=== PATIENT | male | born 1950 | race Caucasian/White ===

== ENCOUNTER 2017-12-04 08:39 | Inpatient (IN) ==
[2017-12-04] MEDS ORDERED: Heparin 10,000 UNITS/10 ML Vial (for IV use) IV.PUSH STA (08:49)
[2017-12-04] MEDS ORDERED: Nitroglycerin Drip Premix 50 MG/250 ML BOTTLE IV.CONT PRN (08:51)
[2017-12-04] MEDS ORDERED: Morphine Inj 4 MG/ML Vial IV.PUSH SCH (09:00)
--- NOTE | 2017-12-04 09:14 | ED ---
HPI General Chief Complaint: Chest Pain Stated Complaint: Chest Pain Time Seen by Provider: 12/04/17 08:45 Source: patient and EMS Mode of arrival: EMS Limitations: no limitations History of Present Illness MD complaint: chest pain Complete Quality Measures for STEMI Alert Patients STEMI Alert: No Onset (ago): minute(s) (30) Time: 08:10 Duration: constant Onset: during rest Pain location: substernal Severity scale (1-10): 8 Quality: tightness and similar to prior ID Pain radiation: none Relieving factors: nothing Exacerbating factors: nothing Associated symptoms: dyspnea Treatments prior to arrival chest pain: aspirin, nitroglycerin, oxygen and other (morphine>>low BP) Related Data Home Medications Medication Instructions Recorded Confirmed amlodipine [Norvasc] 10 mg PO DAILY 12/04/17 12/04/17 aspirin 81 mg PO QPM 12/04/17 12/04/17 atorvastatin [Lipitor] 40 mg PO HS 12/04/17 12/04/17 carvedilol [Coreg] 3.125 mg PO BID 12/04/17 12/04/17 chlordiazepoxide HCl 5 mg PO DAILY 12/04/17 12/04/17 cholecalciferol (vitamin D3) 2,000 unit PO DAILY 12/04/17 12/04/17 [Vitamin D3] citalopram [Celexa] 40 mg PO DAILY 12/04/17 12/04/17 clopidogrel [Plavix] 75 mg PO DAILY 12/04/17 12/04/17 coQ10 (ubiquinol) 200 mg PO DAILY 12/04/17 12/04/17 ergocalciferol (vitamin D2) 50,000 unit PO QWEEK 12/04/17 12/04/17 [Vitamin D2] fentanyl 1 patch TRANSDERMAL Q72H 12/04/17 12/04/17 finasteride 5 mg PO HS 12/04/17 12/04/17 furosemide [Lasix] 40 mg PO DAILY 12/04/17 12/04/17 gabapentin 300 mg PO Q8HR 12/04/17 12/04/17 hydrocodone-acetaminophen [Parksley] 1 tab PO Q4-6H PRN 12/04/17 12/04/17 insulin glargine [Lantus U-100 100 unit SUB-Q QPM 12/04/17 12/04/17 Insulin] insulin lispro [Humalog U-100 5 - 10 units SUB-Q UD 12/04/17 12/04/17 Insulin] ipratropium-albuterol 3 ml INHALATION Q6-8H PRN 12/04/17 12/04/17 loratadine [Claritin] 10 mg PO DAILY 12/04/17 12/04/17 metformin [Glucophage] 1,000 mg PO BID 12/04/17 12/04/17 methocarbamol [Robaxin] 500 mg PO Q8HR 12/04/17 12/04/17 [id number]-LS-lycopen-lutein 1 tab PO DAILY 12/04/17 12/04/17 [Centrum Silver] pramipexole 0.75 mg PO HS 12/04/17 12/04/17 sacubitril-valsartan [Entresto] 1 tab PO BID 12/04/17 12/04/17 spironolactone [Aldactone] 25 mg PO DAILY 12/04/17 12/04/17 tamsulosin 0.4 mg PO HS 12/04/17 12/04/17 tiotropium bromide [Spiriva with 1 cap INHALATION DAILY 12/04/17 12/04/17 HandiHaler] vancomycin in 0.9 % sodium chl 10 mg/kg IV Q6H 12/04/17 12/04/17 Allergies Allergy/AdvReac Type Severity Reaction Status Date / Time Penicillins Allergy Unknown childhood Verified 10/28/17 07:45 reaction Review of Systems Except as stated in HPI: all other systems reviewed are negative [facility] Medical History Medical History Cellulitis of right lower extremity (Acute) Ischemic cardiomyopathy (Acute) Tibial plateau fracture, right (Acute) COPD (chronic obstructive pulmonary disease) (Acute) Diabetes (Acute) Hyperlipidemia associated with type 2 diabetes mellitus (Acute) Hypertension (Acute) Myocardial infarction (Acute) Tibial plateau fracture (Acute) Social History Social History Second Hand Smoke Exposure: Yes Smoking Status: Current every day smoker Tobacco Type: Cigars How Often Do You Have a Drink Containing Alcohol: 2 to 4 times a month Recent Travel in [facility] [[email or web address]] within the Last 8 Weeks: No Recent Out of Country Travel within the Last 8 Weeks: No Immunization History Tetanus Immunization: Unsure Exam Const General: cooperative and healthy appearing [facility] Head: normal to inspection, normocephalic and atraumatic Eyes General: appearance normal, both eyes and all related structures Conjunctivae: conjunctivae normal Sclera: sclerae normal EOM: EOM intact bilaterally Neck Neck: normal visual inspection and full ROM Chest Chest: normal inspection of the chest Resp Effort & Inspection: normal respiratory effort and able to speak in complete sentences Auscultation: clear to auscultation bilaterally Cardio Rate: regular rate Rhythm: regular rhythm Heart Sounds: S1 normal and S2 normal Skin General: turgor normal and erythema (mild erythema RLE) Neuro General: alert, awake, oriented x3, moves all extremities and CN's II-XI intact bilaterally Extrem General: normal to inspection and edema (RLE) Psych Appearance: grossly normal Mental Status: mental status grossly normal Speech and Movement: speech and movement normal Mood: congruent mood Affect: normal affect Attitude: cooperative Thought Process: normal Thought Content: normal Judgment: judgment good Course Reevaluation(s) Reevaluation #1: Patient states that his chest pain is getting worse rather than better. CTA for PE has been ordered. Time: 09:35 Consultations Consultation #1: Dr. Cruz recommended routine TWX OPERATOR work up. She is sending records from his latest cath and echo. Time: 09:40 Initial Documented Vital Signs Temperature 97.8 F 12/04/17 08:47 Pulse Rate 65 12/04/17 08:47 Respiratory Rate 17 12/04/17 08:47 Blood Pressure 110/72 12/04/17 08:47 Pulse Oximetry 100 12/04/17 08:47 Last Documented Vital Signs Temperature 97.8 F 12/04/17 08:47 Pulse Rate 67 12/04/17 10:46 Respiratory Rate 17 12/04/17 10:46 Blood Pressure 105/52 L 12/04/17 10:46 Pulse Oximetry 100 12/04/17 10:46 Critical Care Time Critical Care Time: Yes Total Critical Care Time: 45 Attestation: Time to perform other separately billable procedures was not included in the critical care time. My time did not include minutes spent treating any other patients simultaneously or on activities that did not directly contribute to the patient's treatment. The services I provided to this patient were to treat and/or prevent clinically significant deterioration due to chest pain, rule out ID, rule out PE I provided critical care services requiring my management, as noted below: Chart data review, documentation time, medication orders and management, vital sign assessments/reviewing monitor data, ordering and reviewing lab tests, ordering and interpreting/reviewing x-rays and diagnostic studies, care of the patient and discussion of the patient with the admitting physicians Medical Decision Making MDM Narrative Medical decision making narrative: Patient presented to us by [facility] as a possible STEMI. He had the onset of chest pain 30 minutes prior to presentation. 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 He describes it as a squeezing sensation which is associated with short he was treated by [facility] with aspirin, 1 sublingual nitroglycerin, 2 mg of morphine and oxygen. This provided no relief of his chest pain. The morphine did drop his blood pressure. On arrival to the department. An IV was placed. He was placed on the monitor. EKG was obtained. Labs were obtained and sent. He has been started on a nitroglycerin drip as well as a heparin drip. Initial chest pain evaluation is negative including CT for PE. The patient will be admitted to the chest pain center for further evaluation. Differential Diagnosis Differential Diagnosis: Differential diagnosis of chest pain includes but is not limited to musculoskeletal pain, pulmonary embolism, acute coronary syndrome , pneumonia, pleurisy Lab Data Lab results reviewed: Yes I reviewed the patient's lab results. Lab results narrative: Troponin is less than 0.02. Result diagrams: 12/04/17 08:55 12/04/17 08:55 Lab Results 12/04/17 12/04/17 12/04/17 Range/Units 08:55 08:55 08:55 WBC 8.3 (4.0-11.0) th/mm3 RBC 4.48 L (4.50-5.90) mil/mm3 Hgb 10.7 L (13.0-17.0) gm/dL Hct 33.3 L (39.0-51.0) % MCV 74.4 L (80.0-100.0) fL MCH 24.0 L (27.0-34.0) pg MCHC 32.3 (32.0-36.0) % RDW 17.5 H (11.6-17.2) % Plt Count 287 (150-450) th/mm3 MPV 8.4 (7.0-11.0) fL Neut % (Auto) 65.6 (16.0-70.0) % Lymph % (Auto) 18.2 (9.0-44.0) % [place] % (Auto) 6.6 (0.0-8.0) % Eos % (Auto) 8.3 H (0.0-4.0) % Baso % (Auto) 1.3 (0.0-2.0) % Neut # (Auto) 5.4 (1.8-7.7) th/mm3 Lymph # (Auto) 1.5 (1.0-4.8) th/mm3 [place] # (Auto) 0.5 (0.0-0.9) th/mm3 Eos # (Auto) 0.7 H (0.0-0.4) th/mm3 Baso # (Auto) 0.1 (0.0-0.2) th/mm3 WBC Differential . Differential Comment Auto diff final PT 9.9 (9.8-11.6) sec INR 1.0 Ratio APTT 25.4 (24.3-30.1) sec Sodium 140 (136-145) meq/L Potassium 3.6 (3.5-5.1) meq/L Chloride 108 H (98-107) meq/L Carbon Dioxide 22.5 (21.0-32.0) meq/L Anion Gap 10 (5-15) meq/L BUN 8 (7-18) mg/dL Creatinine 0.95 (0.60-1.30) mg/dL Estimated GFR 79 L (>89) mL/min Random Glucose 126 H (74-106) mg/dL Calcium 8.5 (8.5-10.1) mg/dL Troponin I Less than 0.02 L (0.02-0.05) ng/mL Imaging Data Radiologist's impression: Chest X-Ray 12/04/17 08:46 CONCLUSION: Chest CTA 12/04/17 09:45 CONCLUSION: ECG Data EKG Prior to Arrival: Yes Attestation: I personally reviewed and interpreted this ECG as follows: (EKG shows a rate of 69. Rhythm is irregular. There is an intraventricular conduction delay. I do not see any obvious ST segment changes. EKG does not appear to be different from previous.) Discharge Plan Discharge Disposition Patient Disposition: 30 Still Patient Discharge Details Diagnosis: Chest pain Physicians Team ED Provider: Gloria Lang Primary Care Provider: Primary Care Dorothy Ye Rxs /Orders / Referrals /Forms Prescriptions: No Action spironolactone [Aldactone] 25 mg Tablet 25 mg PO DAILY RF: 0 carvedilol [Coreg] 3.125 mg Tablet 3.125 mg PO BID RF: 0 furosemide [Lasix] 40 mg Tablet 40 mg PO DAILY RF: 0 atorvastatin [Lipitor] 40 mg Tablet 40 mg PO HS RF: 0 methocarbamol [Robaxin] 500 mg Tablet 500 mg PO Q8HR RF: 0 ipratropium-albuterol 0.5 mg-3 mg(2.5 mg base)/3 mL Solution For Nebulization 3 ml INHALATION Q6-8H PRN (Reason: Shortness Of Breath) RF: 0 insulin glargine [Lantus U-100 Insulin] 100 unit/mL Solution 100 unit SUB-Q QPM RF: 0 citalopram [Celexa] 40 mg Tablet 40 mg PO DAILY RF: 0 clopidogrel [Plavix] 75 mg Tablet 75 mg PO DAILY RF: 0 hydrocodone-acetaminophen [Parksley] 10-325 mg Tablet 1 tab PO Q4-6H PRN (Reason: Pain) RF: 0 aspirin 81 mg Tablet,Delayed Release (Dr/Ec) 81 mg PO QPM RF: 0 chlordiazepoxide HCl 5 mg Capsule 5 mg PO DAILY RF: 0 tamsulosin 0.4 mg Capsule,Extended Release 24hr 0.4 mg PO HS RF: 0 amlodipine [Norvasc] 10 mg Tablet 10 mg PO DAILY RF: 0 metformin [Glucophage] 1,000 mg Tablet 1,000 mg PO BID RF: 0 gabapentin 300 mg Capsule 300 mg PO Q8HR RF: 0 ergocalciferol (vitamin D2) [Vitamin D2] 50,000 unit Capsule 50,000 unit PO QWEEK RF: 0 insulin lispro [Humalog U-100 Insulin] 100 unit/mL Solution 5 - 10 units SUB-Q UD RF: 0 fentanyl 25 mcg/hr Patch 72 Hour 1 patch TRANSDERMAL Q72H RF: 0 finasteride 5 mg Tablet 5 mg PO HS RF: 0 loratadine [Claritin] 10 mg Tablet 10 mg PO DAILY RF: 0 tiotropium bromide [Spiriva with HandiHaler] 18 mcg Capsule, W/Inhalation Device 1 cap INHALATION DAILY RF: 0 [id number]-avy-UN-lycopen-lutein [Centrum Silver] 0.4-300-250 mg-mcg-mcg Tablet 1 tab PO DAILY RF: 0 pramipexole 0.75 mg Tablet 0.75 mg PO HS RF: 0 cholecalciferol (vitamin D3) [Vitamin D3] 2,000 unit Capsule 2,000 unit PO DAILY RF: 0 coQ10 (ubiquinol) 200 mg Capsule 200 mg PO DAILY RF: 0 sacubitril-valsartan [Entresto] 49-51 mg Tablet 1 tab PO BID RF: 0 vancomycin in 0.9 % sodium chl 1 gram/100 mL Solution 10 mg/kg IV Q6H RF: 0 Discharge Instructions Patient Printed Instructions: Chest Pain (ED) Status ED Status: With Doctor
[2017-12-04 09:16] LABS: Baso # (Auto) 0.1 th/mm3 (0.0-0.2); Baso % (Auto) 1.3 % (0.0-2.0); Eos # (Auto) 0.7 th/mm3 (0.0-0.4); Eos % (Auto) 8.3 % (0.0-4.0); Hematocrit 33.3 % (39.0-51.0); Hemoglobin 10.7 gm/dL (13.0-17.0); Lymph # (Auto) 1.5 th/mm3 (1.0-4.8); Lymph % (Auto) 18.2 % (9.0-44.0); Mean Corpuscular HGB Conc 32.3 % (32.0-36.0); Mean Corpuscular Volume 74.4 fL (80.0-100.0); Mean Platelet Volume 8.4 fL (7.0-11.0); Mono # (Auto) 0.5 th/mm3 (0.0-0.9); Mono % (Auto) 6.6 % (0.0-8.0); Neut # (Auto) 5.4 th/mm3 (1.8-7.7); Neut % (Auto) 65.6 % (16.0-70.0); Platelet Count 287 th/mm3 (150-450); Red Blood Count 4.48 mil/mm3 (4.50-5.90); Red Cell Distribution Width 17.5 % (11.6-17.2); White Blood Count 8.3 th/mm3 (4.0-11.0)
[2017-12-04 09:23] LABS: Activated Partial Thrombo Time 25.4 sec (24.3-30.1); Prothrombin Time 9.9 sec (9.8-11.6)
[2017-12-04 09:27] LABS: Anion Gap 10 meq/L (5-15); Blood Urea Nitrogen 8 mg/dL (7-18); Calcium 8.5 mg/dL (8.5-10.1); Carbon Dioxide 22.5 meq/L (21.0-32.0); Chloride 108 meq/L (98-107); Glomerular Filtration Rate 79 mL/min (>89); Glucose,Random 126 mg/dL (74-106); Potassium 3.6 meq/L (3.5-5.1); Sodium 140 meq/L (136-145)
--- NOTE | 2017-12-04 09:30 | XR ---
EXAM DATE: 12/04/2017 9:28 AM EDT AGE/SEX: 67 years / Male INDICATIONS: Chest pain. Shortness of breath. CLINICAL DATA: This is the patient's initial encounter. Patient reports that signs and symptoms have been present for 1 day and indicates a pain score of 7/10. MEDICAL/SURGICAL HISTORY: Hypertension. Diabetes mellitus type II. Smoker. Coronary artery st ent. COMPARISON: [facility] – [place], CHEST SINGLE AP, 08/23/2017. . FINDINGS: A single AP view of the chest demonstrates the lungs to be symmetrically aerated without evidence of mass, infiltrate or effusion. The cardiomediastinal contours are unremarkable. Osseous structures a re intact. The patient is again noted be status post lower cervical fusion. There are overlying elec trocardiogram leads. Mild atherosclerotic changes are present in the aorta. CONCLUSION: There is no acute cardiopulmonary disease. Electronically signed by: Naif Uriostegui MD 12/04/2017 9:29 AM EDT
[2017-12-04] MEDS: Heparin Drip 25,000 UNIT/250 ML BAG IV.CONT PRN (10:44)
--- NOTE | 2017-12-04 11:23 | CT ---
EXAM DATE: 12/04/2017 11:17 AM EDT AGE/SEX: 67 years / Male INDICATIONS: Chest pain and shortness of breath. CLINICAL DATA: This is the patient's initial encounter. Patient reports that signs and symptoms have been present for 1 day and indicates a pain score of 6/10. MEDICAL/SURGICAL HISTORY: Cardiovascular disease. Chronic obstructive pulmonary disease. Hyperten ann. Diabetes. None. RADIATION DOSE: 19.78 CTDI (mGy) COMPARISON: No prior exams available for comparison. TECHNIQUE: Volumetric scanning was performed using a multi-row detector CT scanner during bolus infu ann of 73 ml Omnipaque 350 (iohexol) nonionic water-soluble contrast as a single exam dose. The kaya a was post processed with a variety of visualization algorithms including full volume maximum intensi ty projection and sliding thin slab reformation. Using automated exposure control and adjustment of t he mA and/or kV according to patient size, radiation dose was kept as low as reasonably achievable to obtain optimal diagnostic quality images. DICOM format image data is available electronically for r eview and comparison. FINDINGS: Pulmonary Arteries: No filling defects are seen in the pulmonary arteries out to the subsegmental ve ssels. The left and right pulmonary arteries are normal in diameter. Lung: No infiltrates seen. Effusion: None. Mediastinum: No evidence of mediastinal or hilar adenopathy. Coronary artery calcifications are pres ent. Other: The axilla is unremarkable. The patient is status post cholecystectomy. 1. No evidence of pulmonary embolism. 2. The lungs are clear. Electronically signed by: Naif Uriostegui MD 12/04/2017 11:21 AM EDT
--- NOTE | 2017-12-04 12:57 | P.HP ---
History of Present Illness Primary Care Physician: 67-year-old white male being admitted for chest pain. Patient was in his usual state of health until earlier this morning when he woke up and found himself having chest pain that began while he was lying down. Reports it to be stabbing 8/10 at its worst nature. Patient says this pain feels identical to the chest pain he has had in the past where he ended up needing stenting.no alleviation with 3 doses of nitro at home. No alleviation with rest. Denies any nausea vomiting or sweating or lightheadedness. Does report having some shortness of breath with it. Call 911. Started on nitroglycerin drip and a heparin drip due to sustained constant chest pain. Underwent CT pulmonary angiogram which I independently reviewed which showed no acute infiltrates, radiology read shows no emboli. I independently reviewed EKGs as well and see no obvious significant ST segment changes concerning for ischemia or infarction. Initial troponin is negative. Patient's cardiac history is remarkable for stenting, no bypass surgery. [facility] does not indicate that he has undergone stenting here nor any nuclear stress testing here either. Thinks he might have gotten stented most recently in [facility], says he is undergone stenting at least 4-5 times with his most recent stent being about 2 years ago. Initial stenting was done in the early . I contacted [facility] and they also deny the patient having undergone any nuclear medicine stress testing there either. Patient was recently discharged about 1 month ago for hospitalization for a wound infection complication from a tibia plateau fracture ORIF. He is currently on vancomycin at home through a PICC line. Review of Systems All other systems reviewed negative except as stated in HPI PMFSH - History History Provided By: Patient, Medical Record - Medical History Medical History: Medical History (Last Updated 12/04/17 @ 13:00 by Ranjith Pineda MD) Tibial plateau fracture, right (Acute) Bladder cancer Bladder cancer Cellulitis of right lower extremity Ischemic cardiomyopathy COPD (chronic obstructive pulmonary disease) Diabetes Hyperlipidemia associated with type 2 diabetes mellitus Hypertension Myocardial infarction Tibial plateau fracture - Family History Family History: Family History (Last Updated 12/04/17 @ 12:56 by Ranjith Pineda MD) Father Pancreatic cancer Brother Coronary artery disease - Tobacco History Second Hand Smoke Exposure: Yes Tobacco Use In Past 30 Days: Yes Smoking Status: Current every day smoker Tobacco Type: Cigars - Alcohol History How Often Do You Have a Drink Containing Alcohol: 2 to 4 times a month - Travel History Recent Travel in the [place] Within the Last 8 Weeks: No Recent Travel Out of the Country Within the Last 8 Weeks: No - Immunization History Tetanus Immunization: Unsure Medications and Allergies Active Medications: Active Medications Heparin Sodium (Porcine) (Heparin Inj) 2,500 units IV.PUSH UNSCH PRN PRN Reason: aPTT 25-39 Heparin Sodium/Dextrose (Heparin/D5w 25,000 U/250 Ml) 25,000 unit in 250 mls @ 0 mls/hr IV.CONT TITRATE PRN; Protocol PRN Reason: Per Protocol Last Admin: 12/04/17 10:44 Dose: 1,000 units/hr, 10 mls/hr Nitroglycerin/Dextrose (Nitroglycerin Drip Premix) 50 mg in 250 mls @ 0 mls/hr IV.CONT TITRATE PRN; Protocol PRN Reason: Per Protocol Last Titration: 12/04/17 11:15 Dose: 25 mcg/min, 7.5 mls/hr Morphine Sulfate (Morphine Inj) 2 mg IV.PUSH PRN BEBA Last Admin: 12/04/17 09:34 Dose: 2 mg Pantoprazole Sodium (Protonix) 40 mg PO DAILY BEBA Sodium Chloride (Ns Flush) 2 ml IV.FLUSH UNSCH PRN PRN Reason: FLUSH AFTER USING IV ACCESS Allergies Allergy/AdvReac Type Severity Reaction Status Date / Time Penicillins Allergy Unknown childhood Verified 10/28/17 07:45 reaction Home Medications Medication Instructions Recorded Confirmed Type amlodipine [Norvasc] 10 mg PO DAILY 12/04/17 12/04/17 History aspirin 81 mg PO QPM 12/04/17 12/04/17 History atorvastatin [Lipitor] 40 mg PO HS 12/04/17 12/04/17 History carvedilol [Coreg] 3.125 mg PO BID 12/04/17 12/04/17 History chlordiazepoxide HCl 5 mg PO DAILY 12/04/17 12/04/17 History cholecalciferol (vitamin D3) 2,000 unit PO DAILY 12/04/17 12/04/17 History [Vitamin D3] citalopram [Celexa] 40 mg PO DAILY 12/04/17 12/04/17 History clopidogrel [Plavix] 75 mg PO DAILY 12/04/17 12/04/17 History coQ10 (ubiquinol) 200 mg PO DAILY 12/04/17 12/04/17 History ergocalciferol (vitamin D2) 50,000 unit PO QWEEK 12/04/17 12/04/17 History [Vitamin D2] fentanyl 1 patch TRANSDERMAL Q72H 12/04/17 12/04/17 History finasteride 5 mg PO HS 12/04/17 12/04/17 History furosemide [Lasix] 40 mg PO DAILY 12/04/17 12/04/17 History gabapentin 300 mg PO Q8HR 12/04/17 12/04/17 History hydrocodone-acetaminophen [Kiln] 1 tab PO Q4-6H PRN 12/04/17 12/04/17 History insulin glargine [Lantus U-100 100 unit SUB-Q QPM 12/04/17 12/04/17 History Insulin] insulin lispro [Humalog U-100 5 - 10 units SUB-Q UD 12/04/17 12/04/17 History Insulin] ipratropium-albuterol 3 ml INHALATION Q6-8H PRN 12/04/17 12/04/17 History loratadine [Claritin] 10 mg PO DAILY 12/04/17 12/04/17 History metformin [Glucophage] 1,000 mg PO BID 12/04/17 12/04/17 History methocarbamol [Robaxin] 500 mg PO Q8HR 12/04/17 12/04/17 History ztnrvhwl-oas-NM-lycopen-lutein 1 tab PO DAILY 12/04/17 12/04/17 History [Centrum Silver] pramipexole 0.75 mg PO HS 12/04/17 12/04/17 History sacubitril-valsartan [Entresto] 1 tab PO BID 12/04/17 12/04/17 History spironolactone [Aldactone] 25 mg PO DAILY 12/04/17 12/04/17 History tamsulosin 0.4 mg PO HS 12/04/17 12/04/17 History tiotropium bromide [Spiriva with 1 cap INHALATION DAILY 12/04/17 12/04/17 History HandiHaler] vancomycin in 0.9 % sodium chl 10 mg/kg IV Q6H 12/04/17 12/04/17 History Exam Vital signs: Vital Signs 12/04/17 08:47 12/04/17 09:07 12/04/17 10:11 Temperature 97.8 F Pulse Rate 65 69 63 Respiratory Rate 17 17 17 Blood Pressure 110/72 124/57 L 111/57 L Pulse Oximetry 100 100 100 12/04/17 10:46 Temperature Pulse Rate 67 Respiratory Rate 17 Blood Pressure 105/52 L Pulse Oximetry 100 Intake & Output 12/03/17 12/04/17 12/04/17 18:59 06:59 18:59 Weight 90.718 kg Narrative: VS: afebrile GENERAL: Lying in bed, awake, alert, very mild distress secondary to pain SKIN: Warm and dry. EYES: No scleral icterus. No injection or drainage. ENT: No nasal bleeding or discharge. Mucous membranes pink and moist. CARDIOVASCULAR: Regular rate and rhythm. no murmurs, no hepatojugular reflex, no lower extremity edema RESPIRATORY: No accessory muscle use. Clear to auscultation. Breath sounds equal bilaterally. GASTROINTESTINAL: Abdomen soft, non-tender, nondistended. Hepatic and splenic margins not palpable. Extremities: No clubbing, cyanosis, or edema. No obvious deformities. MUSCULOSKELETAL: Clean sutures noted over right anterior king with no drainage, R foot in plantar flexed position, adequate muscle bulk and tone for age and habitus. No sternal TTP. NEUROLOGICAL: Awake and alert. No obvious cranial nerve deficits. No facial droop nor slurred speech noted. PSYCHIATRIC: Appropriate mood and affect; insight and judgment normal. Results - Labs CBC & Chem 7: 12/04/17 08:55 12/04/17 08:55 Labs: Laboratory Results - last 24 hr 12/04/17 12/04/17 12/04/17 08:55 08:55 08:55 WBC 8.3 RBC 4.48 L Hgb 10.7 L Hct 33.3 L MCV 74.4 L MCH 24.0 L MCHC 32.3 RDW 17.5 H Plt Count 287 MPV 8.4 Neut % (Auto) 65.6 Lymph % (Auto) 18.2 Alcorn % (Auto) 6.6 Eos % (Auto) 8.3 H Baso % (Auto) 1.3 Neut # (Auto) 5.4 Lymph # (Auto) 1.5 Alcorn # (Auto) 0.5 Eos # (Auto) 0.7 H Baso # (Auto) 0.1 WBC Differential . Differential Comment Auto diff final PT 9.9 INR 1.0 APTT 25.4 Sodium 140 Potassium 3.6 Chloride 108 H Carbon Dioxide 22.5 Anion Gap 10 BUN 8 Creatinine 0.95 Estimated GFR 79 L Random Glucose 126 H Calcium 8.5 Troponin I Less than 0.02 L - Imaging Impressions Chest X-Ray 12/04/17 08:46 CONCLUSION: Chest CTA 12/04/17 09:45 CONCLUSION: Neri VTE Risk Assessment Jeremiasrini VTE Risk Assessment: Moderate/High Risk (score >= 2) VTE Pharmacological Exception Reason: High risk for bleeding VTE Mechanical Exception: LE injury/wound Caprini Risk Assessment Model: Point Value = 1 Point Value = 2 Point Value = 3 Point Value = 5 Age 41-60 Minor surgery BMI > 25 kg/m2 Swollen legs Varicose veins or History of unexplained or recurrent spontaneous Oral contraceptives or hormone replacement Sepsis (< 1 month) Serious lung disease, including pneumonia (< 1 month) Abnormal pulmonary function Acute myocardial infarction Congestive heart failure (< 1 month) History of inflammatory bowel disease Medical patient at bed rest Age 61-74 Arthroscopic surgery Major open surgery (> 45 min) Laparoscopic surgery (> 45 min) Malignancy Confined to bed (> 72 hours) Immobilizing plaster cast Central venous access Age >= 75 History of VTE Family history of VTE Factor V Leiden Prothrombin 17614L Lupus anticoagulant Anticardiolipin antibodies Elevated serum homocysteine Heparin-induced thrombocytopenia Other congenital or acquired thrombophilia Stroke (< 1 month) Elective arthroplasty Hip, pelvis, or leg fracture Acute spinal cord injury (< 1 month) Prophylaxis Regimen: Total Risk Factor Score Risk Level Prophylaxis Regimen 0-1 Low Early ambulation 2 Moderate Order ONE of the following: *Sequential Compression Device (SCD) *Heparin 5000 units SQ BID 3-4 Higher Order ONE of the following medications: *Heparin 5000 units SQ TID *Enoxaparin/Lovenox 40 mg SQ daily (WT < 150 kg, CrCl > 30 mL/min) *Enoxaparin/Lovenox 30 mg SQ daily (WT < 150 kg, CrCl > 10-29 mL/min) *Enoxaparin/Lovenox 30 mg SQ BID (WT < 150 kg, CrCl > 30 mL/min) AND/OR *Sequential Compression Device (SCD) 5 or more Highest Order ONE of the following medications: *Heparin 5000 units SQ TID (Preferred with Epidurals) *Enoxaparin/Lovenox 40 mg SQ daily (WT < 150 kg, CrCl > 30 mL/min) *Enoxaparin/Lovenox 30 mg SQ daily (WT < 150 kg, CrCl > 10-29 mL/min) *Enoxaparin/Lovenox 30 mg SQ BID (WT < 150 kg, CrCl > 30 mL/min) AND *Sequential Compression Device (SCD) Assessment and Plan - Plan 67-year-old white male being admitted for chest pain Chest pain -CTA negative, EKG with no significant changes -Due to sustained constant nature with similarity on previous presentations, case was discussed with cardiology and will entertain cardiac catheterization today -Trend cardiac troponins, continue nitro and heparin drips, resume home beta- martin, continue aspirin and Plavix and lipitor -telemetry -NPO and start Protonix HTN/I suspect sCHF given nature of pt's home meds - hold home entresto - continue home lasix, spironolactone, and coreg - intake and output tib plateau fx ORIF wound complication - continue vancomycin as per home regimen - start low rate IVFs in light of possible chronic CHF DM - hold home metformin and insulin - LDSS w/ accuchecks COPD - continue home inhalers BPH - home flomax and proscar scd on LLE, on heparin
[2017-12-04] MEDS ORDERED: Dextrose 50% in Water 50 ML Vial IV.PUSH PRN (13:09)
[2017-12-04] MEDS ORDERED: Morphine Inj 4 MG/ML Vial IV.PUSH ONE (13:45)
[2017-12-04] MEDS ORDERED: Sodium Chlor 0.9% Inj 500 ML IV.CONT SCH (14:00)
[2017-12-04] MEDS ORDERED: Vancomycin Consult Pharmacy 1 EACH OTHER SCH (14:00)
--- NOTE | 2017-12-04 14:06 | ECG ---
Date Performed: 12/04/2017 Time Performed: 08:42:57 PTAGE: 67 years EKG: Marked baseline artifact I would repeat EKG DOCTOR: Romero Marx Interpretating Date/Time 12/04/2017 14:05:58
[2017-12-04] MEDS: Gabapentin 300 MG Capsule PO SCH ×2 (14:48→21:12)
[2017-12-04] MEDS: Loratadine 10 MG Tablet PO SCH (14:48)
[2017-12-04] MEDS: Vancomycin Inj 1,500 MG in Sodium Chlor 0.9% Inj 500 ML IV.SIG SCH (15:18)
[2017-12-04] MEDS: Tiotropium Bromide 18 MCG/ACT Inhaler INH SCH (15:18)
[2017-12-04] MEDS: Heparin 10,000 UNITS/10 ML Vial (for IV use) IV.PUSH PRN (16:37)
[2017-12-04] MEDS: Insulin NovoLIN Regular Correctional Sugar Inj SQ SCH ×2 (17:12→21:14)
[2017-12-04] MEDS: Finasteride 5 MG Tablet PO SCH (21:13)
[2017-12-05] MEDS: Heparin 10,000 UNITS/10 ML Vial (for IV use) IV.PUSH PRN ×2 (02:00→16:59)
[2017-12-05] MEDS: Vancomycin Inj 1,500 MG in Sodium Chlor 0.9% Inj 500 ML IV.SIG SCH ×2 (04:15→16:58)
[2017-12-05 05:13] LABS: Hematocrit 32.6 % (39.0-51.0); Hemoglobin 10.3 gm/dL (13.0-17.0); Mean Corpuscular HGB Conc 31.7 % (32.0-36.0); Mean Corpuscular Hemoglobin 23.5 pg (27.0-34.0); Mean Corpuscular Volume 74.3 fL (80.0-100.0); Mean Platelet Volume 8.6 fL (7.0-11.0); Platelet Count 264 th/mm3 (150-450); Red Blood Count 4.38 mil/mm3 (4.50-5.90); Red Cell Distribution Width 17.7 % (11.6-17.2); White Blood Count 9.2 th/mm3 (4.0-11.0)
[2017-12-05 05:38] LABS: Anion Gap 7 meq/L (5-15); Blood Urea Nitrogen 9 mg/dL (7-18); Calcium 8.7 mg/dL (8.5-10.1); Carbon Dioxide 24.8 meq/L (21.0-32.0); Chloride 107 meq/L (98-107); Glomerular Filtration Rate 77 mL/min (>89); Glucose,Random 92 mg/dL (74-106); Sodium 139 meq/L (136-145)
[2017-12-05] MEDS: Gabapentin 300 MG Capsule PO SCH ×3 (05:44→21:45)
--- NOTE | 2017-12-05 08:35 | MB ---
cc: Yosef Huff MD DATE: 12/04/2017 REFERRING PHYSICIAN: Ranjith Pineda MD CHIEF COMPLAINT: Chest pain. HISTORY OF PRESENT ILLNESS: Mr. Jose Carlos Tovar is a very pleasant 67-year-old gentleman. He has got a past medical history of coronary artery disease with PCI primarily done in [place], [place], who found himself waking up this morning with chest discomfort that began while he was at rest. The patient reports that this is sharp, stabbing, 8/10 chest pain, which has some features of his prior angina; however, it is a little different in the regards of its diffuse nature. He is denying any shortness of breath, associated nausea, vomiting or diaphoresis. The patient is currently on nitroglycerin, heparin and morphine. The morphine does appear to help with the patient's chest pain. This patient's chest pain did not get improved with nitroglycerin. REVIEW OF SYSTEMS: A 14-point review of systems is negative unless mentioned in HPI. PAST MEDICAL HISTORY: Reviewed. He has got a past medical history of COPD, dilated cardiomyopathy, hypertension, COPD, hyperlipidemia. FAMILY HISTORY: No sudden cardiac . He reports brother has a family history of coronary artery disease. SOCIAL HISTORY: Tobacco use: He is current daily smoker. He has occasional alcohol use. MEDICATIONS: Reviewed on the electronic medical record. ALLERGIES: REVIEWED ON THE ELECTRONIC MEDICAL RECORD. PHYSICAL EXAMINATION: VITAL SIGNS: Blood pressure 112/72, heart rate 65. GENERAL: Comfortable, in no acute distress. HEENT: Eyes: No scleral icterus. Oropharynx: Moist mucous membranes. CARDIOVASCULAR: Regular rate and rhythm. S1, S2. RESPIRATORY: No crackles. EXTREMITIES: No significant edema. MUSCULOSKELETAL: No reproducible chest discomfort. NEUROLOGIC: Alert and oriented x 3. PSYCHIATRIC: Appropriate affect. LABORATORY DATA: Reviewed on the electronic medical record. His creatinine is 0.95. His troponin is less than 0.02. ASSESSMENT: 1. Chest pain with a history of coronary artery disease. 2. History of congestive heart failure. 3. Diabetes. 4. Chronic obstructive pulmonary disease. 5. Benign prostatic hypertrophy. PLAN: We discussed the different options. He is at least intermediate risk for coronary artery disease given his presentation. We discussed the possibility of coronary angiography versus stress testing. The patient would prefer to undergo a stress evaluation rather than proceed to coronary angiography, which I think is reasonable as long as his troponin levels remain undetectable. He does not have any acute EKG changes. I spoke about the plan in detail with Dr. Ranjith Pineda, who is in agreement. Please contact us after the results of the stress test. Thank you for allowing us to participate in the care of Mr. Jose Carlos Tovar. Yosef Huff MD ADP/KD \ MTDKaye
[2017-12-05] MEDS: amLODIPine 10 MG Tablet PO SCH (08:57)
[2017-12-05] MEDS: Loratadine 10 MG Tablet PO SCH (08:57)
[2017-12-05] MEDS: Insulin NovoLIN Regular Correctional Sugar Inj SQ SCH ×4 (08:57→21:27)
[2017-12-05] MEDS: Tiotropium Bromide 18 MCG/ACT Inhaler INH SCH (08:58)
[2017-12-05] MEDS: Heparin Drip 25,000 UNIT/250 ML BAG IV.CONT PRN (10:14)
[2017-12-05] MEDS ORDERED: Pharmacy Ordered Lab Info OTHER ONE (14:45)
--- NOTE | 2017-12-05 15:28 | P.PN ---
Physical Exam Vital signs: Vital Signs 12/04/17 16:41 12/04/17 20:00 12/04/17 20:57 Temperature 98.4 F Pulse Rate 62 65 Respiratory Rate 17 Blood Pressure 111/58 L Pulse Oximetry 100 100 97 12/04/17 21:31 12/04/17 22:00 12/04/17 23:00 Temperature 98.4 F Pulse Rate 69 62 63 Respiratory Rate Blood Pressure 123/71 Pulse Oximetry 100 12/05/17 00:00 12/05/17 01:00 12/05/17 02:00 Temperature 98.3 F Pulse Rate 64 72 66 Respiratory Rate Blood Pressure 106/69 Pulse Oximetry 100 12/05/17 03:00 12/05/17 04:00 12/05/17 05:00 Temperature 98.4 F Pulse Rate 64 68 68 Respiratory Rate Blood Pressure 125/70 Pulse Oximetry 94 L 12/05/17 06:00 12/05/17 07:00 12/05/17 07:21 Temperature 98.3 F Pulse Rate 64 66 68 Respiratory Rate 18 Blood Pressure 115/57 L Pulse Oximetry 97 12/05/17 08:00 12/05/17 09:00 12/05/17 09:50 Temperature Pulse Rate 62 62 Respiratory Rate Blood Pressure Pulse Oximetry 95 12/05/17 10:00 12/05/17 11:00 12/05/17 11:49 Temperature 98.5 F Pulse Rate 62 72 74 Respiratory Rate 18 Blood Pressure 111/43 L Pulse Oximetry 95 12/05/17 12:00 12/05/17 13:00 12/05/17 14:00 Temperature Pulse Rate 72 71 66 Respiratory Rate Blood Pressure Pulse Oximetry Intake & Output 12/04/17 12/05/17 12/05/17 18:59 06:59 18:59 Intake Total 765 / 765 240 / 240 250 / 250 Output Total 150 / 150 400 / 400 Balance 615 / 615 -160 / -160 250 / 250 Weight 90.718 kg 90.7 kg Intake: IV 515 / 515 250 / 250 Vancomycin Inj 1,500 MG In NS 515 / 515 250 / 250 Inj 500 ML @ 250 mls/hr IV.SIG Q12H [facility] Rx#:[id number] Oral 250 / 250 240 / 240 Output: Urine 150 / 150 400 / 400 Other: Date of Last Bowel Movement 12/04/17 Narrative: Subjective Patient says he feels a little bit improved today. Has chest pain overnight associated with shortness of breath however no chest pain since morning. Went for cardiac stress test. Denies palpitations, diaphoresis, nausea. Eating fairly well. Physical exam GENERAL: Lying in bed, awake, alert, very mild distress secondary to pain SKIN: Warm and dry. EYES: No scleral icterus. No injection or drainage. ENT: No nasal bleeding or discharge. Mucous membranes pink and moist. CARDIOVASCULAR: Regular rate and rhythm. no murmurs, no hepatojugular reflex, no lower extremity edema RESPIRATORY: No accessory muscle use. Clear to auscultation. Breath sounds equal bilaterally. GASTROINTESTINAL: Abdomen soft, non-tender, nondistended. Hepatic and splenic margins not palpable. Extremities: No clubbing, cyanosis, or edema. No obvious deformities. MUSCULOSKELETAL: Clean sutures noted over right anterior king with no drainage, R foot in plantar flexed position, adequate muscle bulk and tone for age and habitus. No sternal TTP. NEUROLOGICAL: Awake and alert. No obvious cranial nerve deficits. No facial droop nor slurred speech noted. PSYCHIATRIC: Appropriate mood and affect; insight and judgment normal. Assessment and Plan - Plan 67-year-old white male being admitted for chest pain Chest pain -CTA negative, EKG with no significant changes -Due to sustained constant nature with similarity on previous presentations, case was discussed with cardiology and will entertain cardiac catheterization today -Trend cardiac troponins, continue nitro and heparin drips, resume home beta- martin, continue aspirin and Plavix and lipitor -telemetry -On Protonix HTN/ and likely systolic CHF - hold home entresto - continue home lasix, spironolactone, and coreg - intake and output tib plateau fx ORIF wound complication - continue vancomycin as per home regimen - start low rate IVFs in light of possible chronic CHF DM - hold home metformin and insulin - LDSS w/ accuchecks COPD - continue home inhalers BPH - home flomax and proscar scd on LLE, on heparin Results - Labs CBC & Chem 7: 12/05/17 04:40 12/05/17 04:40 Laboratory Results - last 24 hr 12/04/17 12/04/17 12/04/17 15:15 17:06 21:18 WBC RBC Hgb Hct MCV MCH MCHC RDW Plt Count MPV APTT 32.2 H D Sodium Potassium Chloride Carbon Dioxide Anion Gap BUN Creatinine Estimated GFR POC Glucose 100 132 H Random Glucose Calcium Troponin I 12/04/17 12/05/17 12/05/17 23:40 01:40 04:38 WBC RBC Hgb Hct MCV MCH MCHC RDW Plt Count MPV APTT 37.5 H Sodium Potassium Chloride Carbon Dioxide Anion Gap BUN Creatinine Estimated GFR POC Glucose 113 H Random Glucose Calcium Troponin I Less than 0.02 L 12/05/17 12/05/17 12/05/17 04:40 04:40 08:56 WBC 9.2 RBC 4.38 L Hgb 10.3 L Hct 32.6 L MCV 74.3 L MCH 23.5 L MCHC 31.7 L RDW 17.7 H Plt Count 264 MPV 8.6 APTT Sodium 139 Potassium 4.0 Chloride 107 Carbon Dioxide 24.8 Anion Gap 7 BUN 9 Creatinine 0.98 Estimated GFR 77 L POC Glucose 108 Random Glucose 92 Calcium 8.7 Troponin I Less than 0.02 L 12/05/17 12/05/17 09:20 12:11 WBC RBC Hgb Hct MCV MCH MCHC RDW Plt Count MPV APTT 45.4 H D Sodium Potassium Chloride Carbon Dioxide Anion Gap BUN Creatinine Estimated GFR POC Glucose 128 H Random Glucose Calcium Troponin I - Imaging Impressions Chest X-Ray 12/04/17 08:46 CONCLUSION: There is no acute cardiopulmonary disease. Chest CTA 12/04/17 09:45 CONCLUSION:
--- NOTE | 2017-12-05 16:44 | P.PNCA ---
Subjective Interval history: No interval change. Pain improved. Had coffee this am so only rest part of Gypsy performed. Physical Exam Vital signs: Vital Signs 12/04/17 20:00 12/04/17 20:57 12/04/17 21:31 Temperature 98.4 F Pulse Rate 65 69 Respiratory Rate Blood Pressure Pulse Oximetry 100 97 12/04/17 22:00 12/04/17 23:00 12/05/17 00:00 Temperature 98.4 F 98.3 F Pulse Rate 62 63 64 Respiratory Rate Blood Pressure 123/71 106/69 Pulse Oximetry 100 100 12/05/17 01:00 12/05/17 02:00 12/05/17 03:00 Temperature Pulse Rate 72 66 64 Respiratory Rate Blood Pressure Pulse Oximetry 12/05/17 04:00 12/05/17 05:00 12/05/17 06:00 Temperature 98.4 F Pulse Rate 68 68 64 Respiratory Rate Blood Pressure 125/70 Pulse Oximetry 94 L 12/05/17 07:00 12/05/17 07:21 12/05/17 08:00 Temperature 98.3 F Pulse Rate 66 68 62 Respiratory Rate 18 Blood Pressure 115/57 L Pulse Oximetry 97 12/05/17 09:00 12/05/17 09:50 12/05/17 10:00 Temperature Pulse Rate 62 62 Respiratory Rate Blood Pressure Pulse Oximetry 95 12/05/17 11:00 12/05/17 11:49 12/05/17 12:00 Temperature 98.5 F Pulse Rate 72 74 72 Respiratory Rate 18 Blood Pressure 111/43 L Pulse Oximetry 95 12/05/17 13:00 12/05/17 14:00 Temperature Pulse Rate 71 66 Respiratory Rate Blood Pressure Pulse Oximetry Intake & Output 12/04/17 12/05/17 12/05/17 18:59 06:59 18:59 Intake Total 765 / 765 240 / 240 250 / 250 Output Total 150 / 150 400 / 400 Balance 615 / 615 -160 / -160 250 / 250 Weight 90.718 kg 90.7 kg Intake: IV 515 / 515 250 / 250 Vancomycin Inj 1,500 MG In NS 515 / 515 250 / 250 Inj 500 ML @ 250 mls/hr IV.SIG Q12H [facility] Rx#:[id number] Oral 250 / 250 240 / 240 Output: Urine 150 / 150 400 / 400 Other: Date of Last Bowel Movement 12/04/17 - Constitutional no acute distress - Routine HEENT Exam Head: Present: normocephalic - Routine Respiratory Exam Present: CTA bilaterally - Routine Cardiovascular Exam Present: RRR, S1, S2 Assessment and Plan - Assessment (1) Chest pain Code(s): R07.9 - Chest pain, unspecified Status: Acute - Plan Appreciate consultation. Will continue to monitor. Stress portion of Lexiscan tomorrow. Trop negative x 3 (1) Chest pain Qualifiers: Chest pain type: unspecified Qualified Code(s): R07.9 - Chest pain, unspecified
[2017-12-05] MEDS: Aspirin 325 MG Tablet PO SCH (17:01)
[2017-12-05] MEDS: Finasteride 5 MG Tablet PO SCH (21:45)
[2017-12-06] MEDS: Heparin 10,000 UNITS/10 ML Vial (for IV use) IV.PUSH PRN (00:41)
[2017-12-06] MEDS ORDERED: Vancomycin Inj 1,250 MG in Sodium Chlor 0.9% Inj 250 ML IV.SIG SCH (06:00)
[2017-12-06] MEDS: Gabapentin 300 MG Capsule PO SCH ×2 (06:08→14:33)
[2017-12-06] MEDS: Heparin Drip 25,000 UNIT/250 ML BAG IV.CONT PRN (06:12)
[2017-12-06 06:40] LABS: Hematocrit 30.2 % (39.0-51.0); Hemoglobin 9.8 gm/dL (13.0-17.0); Mean Corpuscular HGB Conc 32.5 % (32.0-36.0); Mean Corpuscular Hemoglobin 24.3 pg (27.0-34.0); Mean Corpuscular Volume 74.8 fL (80.0-100.0); Mean Platelet Volume 8.7 fL (7.0-11.0); Platelet Count 240 th/mm3 (150-450); Red Blood Count 4.04 mil/mm3 (4.50-5.90); Red Cell Distribution Width 17.5 % (11.6-17.2); White Blood Count 7.1 th/mm3 (4.0-11.0)
[2017-12-06] MEDS: Insulin NovoLIN Regular Correctional Sugar Inj SQ SCH ×2 (08:00→14:41)
[2017-12-06] MEDS: Loratadine 10 MG Tablet PO SCH (09:01)
[2017-12-06] MEDS: Aspirin 325 MG Tablet PO SCH (09:02)
[2017-12-06] MEDS: amLODIPine 10 MG Tablet PO SCH (09:02)
[2017-12-06] MEDS: Tiotropium Bromide 18 MCG/ACT Inhaler INH SCH (09:02)
[2017-12-06] MEDS ORDERED: Regadenoson Inj 0.4 MG/5 ML Syringe IV.PUSH ONE (09:14)
--- NOTE | 2017-12-06 09:40 | P.PN ---
Physical Exam Vital signs: Vital Signs 12/05/17 09:50 12/05/17 10:00 12/05/17 11:00 Temperature Pulse Rate 62 72 Respiratory Rate Blood Pressure Pulse Oximetry 95 12/05/17 11:49 12/05/17 12:00 12/05/17 13:00 Temperature 98.5 F Pulse Rate 74 72 71 Respiratory Rate 18 Blood Pressure 111/43 L Pulse Oximetry 95 12/05/17 14:00 12/05/17 15:00 12/05/17 16:00 Temperature 98.5 F Pulse Rate 66 62 62 Respiratory Rate 18 Blood Pressure 116/60 Pulse Oximetry 99 12/05/17 17:00 12/05/17 18:00 12/05/17 19:00 Temperature Pulse Rate 64 62 62 Respiratory Rate Blood Pressure Pulse Oximetry 12/05/17 20:00 12/05/17 21:00 12/05/17 21:45 Temperature 97.6 F Pulse Rate 70 68 Respiratory Rate 16 16 Blood Pressure 120/57 L Pulse Oximetry 97 12/05/17 22:00 12/05/17 23:00 12/06/17 00:00 Temperature Pulse Rate 76 68 62 Respiratory Rate 16 Blood Pressure 128/78 Pulse Oximetry 94 L 12/06/17 01:00 12/06/17 02:00 12/06/17 03:00 Temperature Pulse Rate 58 L 50 L 62 Respiratory Rate Blood Pressure Pulse Oximetry 12/06/17 04:00 12/06/17 04:49 12/06/17 05:00 Temperature Pulse Rate 58 L 76 Respiratory Rate 16 16 Blood Pressure 107/55 L Pulse Oximetry 96 12/06/17 06:00 12/06/17 08:00 Temperature 97.1 F L Pulse Rate 68 60 Respiratory Rate 20 Blood Pressure 123/71 Pulse Oximetry 98 Intake & Output 12/05/17 12/06/17 12/06/17 18:59 06:59 18:59 Intake Total 1695 / 1695 730 / 730 Output Total 1260 / 1260 1050 / 1050 Balance 435 / 435 -320 / -320 Weight 96 kg Intake: IV 515 / 515 250 / 250 Heparin/D5W 25,000 U/250 mL 25, 250 / 250 000 unit In 250 ml @ Per Protocol IV.CONT TITRATE PRN Rx #:[id number] Vancomycin Inj 1,500 MG In NS 515 / 515 Inj 500 ML @ 250 mls/hr IV.SIG Q12H [facility] Rx#:[id number] Oral 1180 / 1180 480 / 480 Output: Urine 1260 / 1260 1050 / 1050 Other: Date of Last Bowel Movement 12/04/17 12/04/17 12/04/17 # Bowel Movements 0 Narrative: Subjective Feels much better today. No more chest pain or shortness of breath. Went for cardiac stress test and test is negative. Cleared by cardiology for discharge. Follow-up as outpatient. Denies palpitations, diaphoresis, nausea. Eating fairly well. Patient however complained of lower extremity edema with recent surgery. Doppler ultrasound does not show any DVT. Physical exam GENERAL: In bed does not appear in acute distress. CARDIOVASCULAR: Regular rate and rhythm. no murmurs, no hepatojugular reflex, no lower extremity edema RESPIRATORY: No accessory muscle use. Clear to auscultation. Breath sounds equal bilaterally. GASTROINTESTINAL: Abdomen soft, non-tender, nondistended. Hepatic and splenic margins not palpable. Extremities: No clubbing, cyanosis, or edema. No obvious deformities. MUSCULOSKELETAL: Clean sutures noted over right anterior king with no drainage, R foot in plantar flexed position, adequate muscle bulk and tone for age and habitus. No sternal TTP. NEUROLOGICAL: Awake and alert. No obvious cranial nerve deficits. No facial droop nor slurred speech noted. PSYCHIATRIC: Appropriate mood and affect; insight and judgment normal. Assessment and Plan - Plan 67-year-old white male being admitted for chest pain. HAD cardiac stress test and test is negative. Cleared by cardiology for discharge. Follow-up as outpatient. Denies palpitations, diaphoresis, nausea. Eating fairly well. Patient however complained of lower extremity edema with recent surgery. Doppler ultrasound does not show any DVT. Patient improved discharge home in stable condition to follow-up with PCP and consultants as outpatient. Chest pain -CTA negative, EKG with no significant changes -Due to sustained constant nature with similarity on previous presentations, case was discussed with cardiology and will entertain cardiac catheterization today -Trend cardiac troponins, continue nitro and heparin drips, resume home beta- martin, continue aspirin and Plavix and lipitor -telemetry -On Protonix HTN/ and likely systolic CHF - hold home entresto - continue home lasix, spironolactone, and coreg - intake and output tib plateau fx ORIF wound complication - continue vancomycin as per home regimen - start low rate IVFs in light of possible chronic CHF DM - hold home metformin and insulin - LDSS w/ accuchecks COPD - continue home inhalers BPH - home flomax and proscar scd on LLE, on heparin Results - Labs CBC & Chem 7: 12/06/17 06:00 12/05/17 04:40 Laboratory Results - last 24 hr 12/05/17 12/05/17 12/05/17 09:20 12:11 16:12 WBC RBC Hgb Hct MCV MCH MCHC RDW Plt Count MPV APTT 45.4 H D POC Glucose 128 H Vancomycin Trough 20.7 H 12/05/17 12/05/17 12/05/17 16:12 17:10 21:19 WBC RBC Hgb Hct MCV MCH MCHC RDW Plt Count MPV APTT 36.4 H POC Glucose 122 H 143 H Vancomycin Trough 12/05/17 12/06/17 12/06/17 23:25 06:00 06:00 WBC 7.1 RBC 4.04 L Hgb 9.8 L Hct 30.2 L MCV 74.8 L MCH 24.3 L MCHC 32.5 RDW 17.5 H Plt Count 240 MPV 8.7 APTT 38.9 H 64.9 H D POC Glucose Vancomycin Trough 12/06/17 07:53 WBC RBC Hgb Hct MCV MCH MCHC RDW Plt Count MPV APTT POC Glucose 163 H Vancomycin Trough - Imaging Impressions Chest X-Ray 12/04/17 08:46 CONCLUSION: There is no acute cardiopulmonary disease.
--- NOTE | 2017-12-06 11:08 | P.PNCA ---
Subjective Interval history: No CP today. Mild dyspnea at rest. No PND, dizziness, palpitations. Physical Exam Vital signs: Vital Signs 12/05/17 11:49 12/05/17 12:00 12/05/17 13:00 Temperature 98.5 F Pulse Rate 74 72 71 Respiratory Rate 18 Blood Pressure 111/43 L Pulse Oximetry 95 12/05/17 14:00 12/05/17 15:00 12/05/17 16:00 Temperature 98.5 F Pulse Rate 66 62 62 Respiratory Rate 18 Blood Pressure 116/60 Pulse Oximetry 99 12/05/17 17:00 12/05/17 18:00 12/05/17 19:00 Temperature Pulse Rate 64 62 62 Respiratory Rate Blood Pressure Pulse Oximetry 12/05/17 20:00 12/05/17 21:00 12/05/17 21:45 Temperature 97.6 F Pulse Rate 70 68 Respiratory Rate 16 16 Blood Pressure 120/57 L Pulse Oximetry 97 12/05/17 22:00 12/05/17 23:00 12/06/17 00:00 Temperature Pulse Rate 76 68 62 Respiratory Rate 16 Blood Pressure 128/78 Pulse Oximetry 94 L 12/06/17 01:00 12/06/17 02:00 12/06/17 03:00 Temperature Pulse Rate 58 L 50 L 62 Respiratory Rate Blood Pressure Pulse Oximetry 12/06/17 04:00 12/06/17 04:49 12/06/17 05:00 Temperature Pulse Rate 58 L 76 Respiratory Rate 16 16 Blood Pressure 107/55 L Pulse Oximetry 96 12/06/17 06:00 12/06/17 08:00 12/06/17 09:15 Temperature 97.1 F L Pulse Rate 68 60 Respiratory Rate 20 Blood Pressure 123/71 Pulse Oximetry 98 96 Intake & Output 12/05/17 12/06/17 12/06/17 18:59 06:59 18:59 Intake Total 1695 / 1695 730 / 730 Output Total 1260 / 1260 1050 / 1050 Balance 435 / 435 -320 / -320 Weight 96 kg Intake: IV 515 / 515 250 / 250 Heparin/D5W 25,000 U/250 mL 25, 250 / 250 000 unit In 250 ml @ Per Protocol IV.CONT TITRATE PRN Rx #:[id number] Vancomycin Inj 1,500 MG In NS 515 / 515 Inj 500 ML @ 250 mls/hr IV.SIG Q12H [facility] Rx#:[id number] Oral 1180 / 1180 480 / 480 Output: Urine 1260 / 1260 1050 / 1050 Other: Date of Last Bowel Movement 12/04/17 12/04/17 12/04/17 # Bowel Movements 0 - Constitutional no acute distress - Routine Neck Exam Absent: JVD - Routine Respiratory Exam Present: decreased breath sounds - Routine Cardiovascular Exam Present: RRR, S1, S2. Absent: murmur, gallop - Routine Abdominal Exam Present: soft, normoactive bowel sounds. Absent: tenderness, organomegaly - Routine Extremities Exam Absent: cyanosis, clubbing, edema Assessment and Plan - Assessment (1) Coronary artery disease Code(s): I25.10 - Atherosclerotic heart disease of [place] coronary artery without angina pectoris Status: Chronic Plan: Stable overnight. No further CP. Awaiting nuclear stress test results. Continue current medical regimen. (2) Hypertension Code(s): I10 - Essential (primary) hypertension Status: Chronic Plan: Stable. Normotensive. (3) Hyperlipidemia Code(s): E78.5 - Hyperlipidemia, unspecified Status: Chronic Plan: Continue statin therapy. skilled nursing outpatient management. - Plan Code Status: full code Discussed Condition With: patient (1) Coronary artery disease Qualifiers: Coronary Disease-Associated Artery/Lesion type: [place] artery [place] vs. transplanted heart: [place] heart Associated angina: with unspecified angina Qualified Code(s): I25.119 - Atherosclerotic heart disease of [place] coronary artery with unspecified angina pectoris (2) Hypertension Qualifiers: Hypertension type: essential hypertension Qualified Code(s): I10 - Essential (primary) hypertension (3) Hyperlipidemia Qualifiers: Hyperlipidemia type: unspecified Qualified Code(s): E78.5 - Hyperlipidemia, unspecified
--- NOTE | 2017-12-06 11:38 | NM ---
EXAM DATE: 12/06/2017 11:29 AM EDT AGE/SEX: 67 years / Male INDICATIONS:Angina. . Chest pain. CLINICAL DATA: This is the patient's initial encounter. Patient reports that signs and symptoms have been present for 1 day and indicates a pain score of 0/10. MEDICAL/SURGICAL HISTORY: Carcinoma, bladder. Chronic obstructive pulmonary disease. Hyperten ann. DM.AL. None. COMPARISON: No prior exams available for comparison. DOSE: 31.2 mCi Tc 99m Myoview at rest 31.2 mCi [id number] at stress 0.4 mg Lexiscan STRESS SYMPTOMS: Headache and dyspnea. EJECTION FRACTION: 37 % TECHNIQUE: The patient underwent pharmacologic stress with infusion of prescribed dose. Continuous ECG tracing was monitored during stress. Gated SPECT imaging was performed after stress and conventi onal SPECT imaging was performed at rest. The examination was performed on a SPECT/CT scanner, both attenuation and non-corrected datasets were reviewed. FINDINGS: Distribution: The maximum perfused segment at stress is in the anteroseptal wall. Perfusion Study: The pattern of perfusion at stress demonstrates a dilated left ventricular chamber with absence of perfusion to the inferoapical wall, parts of the anterolateral wall. The anterosepta l wall and posterior basal lateral wall appear perfused without any significant ischemia. Gated Study: There is global hypokinesis . The ejection fraction is calculated at 37%. RISK CATEGORY: Intermediate (1-3 % Annual Mortality Rate) CONCLUSION: 1. Global hypokinesis with reduction in ejection fraction and no significant ischemia. Electronically signed by: Gonzalo Mosley MD 12/06/2017 11:36 AM EDT
--- NOTE | 2017-12-06 12:05 | P.PNADD ---
Addendum to Inpatient Note Reason for Addendum: Additional Documentation (No ischemia reportedly seen on nuclear stress testing. OK for discharge from cardiac standpoint. Would also add MAGUI-I therapy.)
[2017-12-06 12:35] VITALS: BP 110/63; TEMP 97.8; O2SAT 98
--- NOTE | 2017-12-06 15:01 | US ---
EXAM DATE: 12/06/2017 2:35 PM EDT AGE/SEX: 67 years / Male INDICATIONS: Swelling. CLINICAL DATA: This is the patient's initial encounter. Patient reports that signs and symptoms have been present for 1 week and indicates a pain score of 4/10. MEDICAL/SURGICAL HISTORY: Carcinoma, bladder. Chronic obstructive pulmonary disease. Diabetes . Hyperlipidemia. Hypertension. Ischemic Cardiomyopathy. Myocardial Infarction. Right Tibial [place] fracture. Cellulitis of right lower extremity. None. COMPARISON: No prior exams available for comparison. TECHNIQUE: Venous ultrasound of both lower extremities was performed from the inguinal ligament to t he proximal calf. Real-time, color Doppler and spectral tracing, compression and augmentation techni ques were used. FINDINGS: Right Leg: Normal compression of the deep venous system from the inguinal region to the proximal jesus alberto f. No echogenic clot is seen. Normal response of the venous system to augmentation and respiration. Left Leg: Normal compression of the deep venous system from the inguinal region to the proximal calf . No echogenic clot is seen. Normal response of the venous system to augmentation and respiration. Other: None. CONCLUSION: 1. The study is negative for bilateral lower extremity deep venous thrombosis. Electronically signed by: Gonzalo Mosley MD 12/06/2017 3:00 PM EDT
[2017-12-06 15:14] VITALS: PULSE 70; RESP 16
--- NOTE | 2017-12-06 15:31 | P.DS ---
Date of admission: 12/04/17 14:40 Primary care physician: No Primary Care Physician Brief History from admission: DC this DC DS: Medications - Discharge Medications Prescriptions: lisinopril 10 mg PO DAILY #30 tab DS: Summary Hospital Course: DC this DC - Time Spent with Patient Total time spent providing and/or coordinating discharge services: Exam Vital signs: Vital Signs 12/05/17 16:00 12/05/17 17:00 12/05/17 18:00 Temperature 98.5 F Pulse Rate 62 64 62 Respiratory Rate 18 Blood Pressure 116/60 Pulse Oximetry 99 12/05/17 19:00 12/05/17 20:00 12/05/17 21:00 Temperature 97.6 F Pulse Rate 62 70 68 Respiratory Rate 16 Blood Pressure 120/57 L Pulse Oximetry 97 12/05/17 21:45 12/05/17 22:00 12/05/17 23:00 Temperature Pulse Rate 76 68 Respiratory Rate 16 Blood Pressure Pulse Oximetry 12/06/17 00:00 12/06/17 01:00 12/06/17 02:00 Temperature Pulse Rate 62 58 L 50 L Respiratory Rate 16 Blood Pressure 128/78 Pulse Oximetry 94 L 12/06/17 03:00 12/06/17 04:00 12/06/17 04:49 Temperature Pulse Rate 62 58 L Respiratory Rate 16 16 Blood Pressure 107/55 L Pulse Oximetry 96 12/06/17 05:00 12/06/17 06:00 12/06/17 07:00 Temperature Pulse Rate 76 68 59 L Respiratory Rate Blood Pressure Pulse Oximetry 12/06/17 08:00 12/06/17 09:00 12/06/17 09:15 Temperature 97.1 F L Pulse Rate 66 58 L Respiratory Rate 20 Blood Pressure 123/71 Pulse Oximetry 94 L 96 12/06/17 10:00 12/06/17 11:00 12/06/17 12:00 Temperature 97.8 F Pulse Rate 59 L 63 58 L Respiratory Rate 22 Blood Pressure 110/63 Pulse Oximetry 98 12/06/17 13:00 12/06/17 14:00 12/06/17 15:00 Temperature Pulse Rate 52 L 61 62 Respiratory Rate Blood Pressure Pulse Oximetry 12/06/17 15:11 Temperature Pulse Rate 70 Respiratory Rate 16 Blood Pressure Pulse Oximetry Intake & Output 12/05/17 12/06/17 12/06/17 18:59 06:59 18:59 Intake Total 1695 / 1695 730 / 730 250 / 250 Output Total 1260 / 1260 1050 / 1050 Balance 435 / 435 -320 / -320 250 / 250 Weight 96 kg Intake: IV 515 / 515 250 / 250 250 / 250 Heparin/D5W 25,000 U/250 mL 25, 250 / 250 000 unit In 250 ml @ Per Protocol IV.CONT TITRATE PRN Rx #:[id number] Vancomycin Inj 1,250 MG In NS 250 / 250 Inj 250 ML @ 250 mls/hr IV.SIG Q12H [facility] Rx#:[id number] Vancomycin Inj 1,500 MG In NS 515 / 515 Inj 500 ML @ 250 mls/hr IV.SIG Q12H [facility] Rx#:[id number] Oral 1180 / 1180 480 / 480 Output: Urine 1260 / 1260 1050 / 1050 Other: Date of Last Bowel Movement 12/04/17 12/04/17 12/04/17 # Bowel Movements 0 Results Procedures completed during hospitalization: none Labs on day of discharge: Labs from last 24 hours 12/06/17 12/06/17 12/06/17 12:42 12:10 07:53 WBC RBC Hgb Hct MCV MCH MCHC RDW Plt Count MPV APTT 57.6 H POC Glucose 169 H 163 H Vancomycin Trough 12/06/17 12/06/17 12/05/17 06:00 06:00 23:25 WBC 7.1 RBC 4.04 L Hgb 9.8 L Hct 30.2 L MCV 74.8 L MCH 24.3 L MCHC 32.5 RDW 17.5 H Plt Count 240 MPV 8.7 APTT 64.9 H D 38.9 H POC Glucose Vancomycin Trough 12/05/17 12/05/17 12/05/17 21:19 17:10 16:12 WBC RBC Hgb Hct MCV MCH MCHC RDW Plt Count MPV APTT 36.4 H POC Glucose 143 H 122 H Vancomycin Trough 12/05/17 16:12 WBC RBC Hgb Hct MCV MCH MCHC RDW Plt Count MPV APTT POC Glucose Vancomycin Trough 20.7 H - Impressions ITS Impressions Chest X-Ray 12/04/17 08:46 CONCLUSION: There is no acute cardiopulmonary disease. Chest CTA 12/04/17 09:45 CONCLUSION: Myocardial Perfusion Scan Nuc Med 12/05/17 08:00 CONCLUSION: 1. Global hypokinesis with reduction in ejection fraction and no significant ischemia. Venous Doppler Study 12/06/17 07:00 CONCLUSION: 1. The study is negative for bilateral lower extremity deep venous thrombosis. Discharge Plan - Discharge Disposition Patient Disposition: W/Home Health Service - Discharge Condition Condition: Stable - Discharge Order Discharge Orders: Discharge Order (Routine); Ordered 12/06/17 Ordered By: Yane Young - Discharge Details Anticipated Discharge Date: 12/06/17 - Physicians Team Primary Care Provider: Primary Care Cassi,Dorothy Attending Provider: Yane Young Other Providers: Jackie Mejia ; Yosef Huff MD
--- NOTE | 2017-12-06 16:50 | P.DS ---
Date of admission: 12/04/17 14:40 Primary care physician: No Primary Care Physician Brief History from admission: 67-year-old white male being admitted for chest pain. Patient was in his usual state of health until earlier this morning when he woke up and found himself having chest pain that began while he was lying down. Reports it to be stabbing 8/10 at its worst nature. Patient says this pain feels identical to the chest pain he has had in the past where he ended up needing stenting.no alleviation with 3 doses of nitro at home. No alleviation with rest. Denies any nausea vomiting or sweating or lightheadedness. Does report having some shortness of breath with it. Call 911. Started on nitroglycerin drip and a heparin drip due to sustained constant chest pain. Underwent CT pulmonary angiogram which I independently reviewed which showed no acute infiltrates, radiology read shows no emboli. I independently reviewed EKGs as well and see no obvious significant ST segment changes concerning for ischemia or infarction. Initial troponin is negative. Patient's cardiac history is remarkable for stenting, no bypass surgery. [facility] does not indicate that he has undergone stenting here nor any nuclear stress testing here either. Thinks he might have gotten stented most recently in [facility], says he is undergone stenting at least 4-5 times with his most recent stent being about 2 years ago. Initial stenting was done in the early s. I contacted [facility] and they also deny the patient having undergone any nuclear medicine stress testing there either. Patient was recently discharged about 1 month ago for hospitalization for a wound infection complication from a tibia plateau fracture ORIF. He is currently on vancomycin at home through a PICC line. DS: Diagnosis - Discharge Diagnosis (1) Chest pain Status: Acute (2) Tibial plateau fracture, right Status: Acute (3) Coronary artery disease Status: Chronic (4) Hyperlipidemia Status: Chronic (5) Hypertension Status: Chronic DS: Medications - Discharge Medications Prescriptions: lisinopril 10 mg PO DAILY #30 tab DS: Summary Hospital Course: Physical exam GENERAL: Lying in bed, awake, alert, very mild distress secondary to pain CARDIOVASCULAR: Regular rate and rhythm. no murmurs, no hepatojugular reflex, no lower extremity edema RESPIRATORY: No accessory muscle use. Clear to auscultation. Breath sounds equal bilaterally. GASTROINTESTINAL: Abdomen soft, non-tender, nondistended. Hepatic and splenic margins not palpable. Extremities: No clubbing, cyanosis, or edema. No obvious deformities. MUSCULOSKELETAL: Clean sutures noted over right anterior king with no drainage, R foot in plantar flexed position, adequate muscle bulk and tone for age and habitus. No sternal TTP. NEUROLOGICAL: Awake and alert. No obvious cranial nerve deficits. No facial droop nor slurred speech noted. PSYCHIATRIC: Appropriate mood and affect; insight and judgment normal. Assessment and Plan - Plan 67-year-old white male being admitted for chest pain. Went for cardiac stress test is negative. Denies palpitations, diaphoresis, nausea. Eating fairly well. Complaining of some extremity edema concern of DVT as patient with recent surgery. Ultrasound bilateral legs shows no DVT patient reassured. Has a follow-up with his orthopedic doctor as outpatient Chest pain -CTA negative, EKG with no significant changes -Due to sustained constant nature with similarity on previous presentations, case was discussed with cardiology and will entertain cardiac catheterization today -Trend cardiac troponins, continue nitro and heparin drips, resume home beta- martin, continue aspirin and Plavix and lipitor -telemetry -On Protonix - Had normal stress test Cleared fo rDC by cardio to follow up as OP HTN/ and likely systolic CHF - hold home entresto - continue home lasix, spironolactone, and coreg - intake and output tib plateau fx ORIF wound complication - continue vancomycin as per home regimen - start low rate IVFs in light of possible chronic CHF DM - hold home metformin and insulin - LDSS w/ accuchecks COPD - continue home inhalers BPH - home flomax and proscar Mild LE edema Doppler US no DVT. Reassured scd on LLE, on heparin Patient improved DC home in stable condition to follow up as OP with PCP and consultants - Time Spent with Patient Total time spent providing and/or coordinating discharge services: Exam Vital signs: Vital Signs 12/05/17 17:00 12/05/17 18:00 12/05/17 19:00 Temperature Pulse Rate 64 62 62 Respiratory Rate Blood Pressure Pulse Oximetry 12/05/17 20:00 12/05/17 21:00 12/05/17 21:45 Temperature 97.6 F Pulse Rate 70 68 Respiratory Rate 16 16 Blood Pressure 120/57 L Pulse Oximetry 97 12/05/17 22:00 12/05/17 23:00 12/06/17 00:00 Temperature Pulse Rate 76 68 62 Respiratory Rate 16 Blood Pressure 128/78 Pulse Oximetry 94 L 12/06/17 01:00 12/06/17 02:00 12/06/17 03:00 Temperature Pulse Rate 58 L 50 L 62 Respiratory Rate Blood Pressure Pulse Oximetry 12/06/17 04:00 12/06/17 04:49 12/06/17 05:00 Temperature Pulse Rate 58 L 76 Respiratory Rate 16 16 Blood Pressure 107/55 L Pulse Oximetry 96 12/06/17 06:00 12/06/17 07:00 12/06/17 08:00 Temperature 97.1 F L Pulse Rate 68 59 L 66 Respiratory Rate 20 Blood Pressure 123/71 Pulse Oximetry 94 L 12/06/17 09:00 12/06/17 09:15 12/06/17 10:00 Temperature Pulse Rate 58 L 59 L Respiratory Rate Blood Pressure Pulse Oximetry 96 12/06/17 11:00 12/06/17 12:00 12/06/17 13:00 Temperature 97.8 F Pulse Rate 63 58 L 52 L Respiratory Rate 22 Blood Pressure 110/63 Pulse Oximetry 98 12/06/17 14:00 12/06/17 15:00 12/06/17 15:11 Temperature Pulse Rate 61 62 70 Respiratory Rate 16 Blood Pressure Pulse Oximetry Intake & Output 12/05/17 12/06/17 12/06/17 18:59 06:59 18:59 Intake Total 1695 / 1695 730 / 730 730 / 730 Output Total 1260 / 1260 1050 / 1050 500 / 500 Balance 435 / 435 -320 / -320 230 / 230 Weight 96 kg Intake: IV 515 / 515 250 / 250 250 / 250 Heparin/D5W 25,000 U/250 mL 25, 250 / 250 000 unit In 250 ml @ Per Protocol IV.CONT TITRATE PRN Rx #:[id number] Vancomycin Inj 1,250 MG In NS 250 / 250 Inj 250 ML @ 250 mls/hr IV.SIG Q12H [facility] Rx#:[id number] Vancomycin Inj 1,500 MG In NS 515 / 515 Inj 500 ML @ 250 mls/hr IV.SIG Q12H [facility] Rx#:[id number] Oral 1180 / 1180 480 / 480 480 / 480 Output: Urine 1260 / 1260 1050 / 1050 500 / 500 Other: Date of Last Bowel Movement 12/04/17 12/04/17 12/04/17 # Bowel Movements 0 Results Procedures completed during hospitalization: stress test Labs on day of discharge: Labs from last 24 hours 12/06/17 12/06/17 12/06/17 12:42 12:10 07:53 WBC RBC Hgb Hct MCV MCH MCHC RDW Plt Count MPV APTT 57.6 H POC Glucose 169 H 163 H Vancomycin Trough 12/06/17 12/06/17 12/05/17 06:00 06:00 23:25 WBC 7.1 RBC 4.04 L Hgb 9.8 L Hct 30.2 L MCV 74.8 L MCH 24.3 L MCHC 32.5 RDW 17.5 H Plt Count 240 MPV 8.7 APTT 64.9 H D 38.9 H POC Glucose Vancomycin Trough 12/05/17 12/05/17 12/05/17 21:19 17:10 16:12 WBC RBC Hgb Hct MCV MCH MCHC RDW Plt Count MPV APTT POC Glucose 143 H 122 H Vancomycin Trough 20.7 H - Impressions ITS Impressions Chest X-Ray 12/04/17 08:46 CONCLUSION: There is no acute cardiopulmonary disease. Chest CTA 12/04/17 09:45 CONCLUSION: Myocardial Perfusion Scan Nuc Med 12/05/17 08:00 CONCLUSION: 1. Global hypokinesis with reduction in ejection fraction and no significant ischemia. Venous Doppler Study 12/06/17 07:00 CONCLUSION: 1. The study is negative for bilateral lower extremity deep venous thrombosis. Discharge Plan - Discharge Disposition Patient Disposition: /Home Health Service - Discharge Condition Condition: Stable - Discharge Order Discharge Orders: Discharge Order (Routine); Ordered 12/06/17 Ordered By: Yane Young - Discharge Details Anticipated Discharge Date: 12/06/17 - Physicians Team Primary Care Provider: Primary Care [place],No Attending Provider: Yane Young Other Providers: Jackie,Jackie ; Yosef Huff MD
--- NOTE | 2017-12-06 17:18 | ECG ---
Date Performed: 12/04/2017 Time Performed: 12:40:34 PTAGE: 67 years EKG: Sinus rhythm INTRAVENTRICULAR CONDUCTION DELAY CONSIDER LATERAL MYOCARDIAL INFARCTION, AGE INDETERMINANT INFERIOR MYOCARDIAL INFARCTION, AGE INDETERMINED PROLONGED CORRECTED QT INTERVAL ABNORMAL ECG PREVIOUS TRACING : 12/04/2017 08.42 DOCTOR: Prince Patel Interpretating Date/Time 12/06/2017 17:18:14
[2017-12-07] MEDS ORDERED: Pharmacy Ordered Lab Info OTHER SCH (05:45)
[2017-12-07] MEDS ORDERED: Lisinopril 10 MG Tablet PO SCH (09:00)
== END 2017-12-06 16:32 | disposition home health service (06) ==
LOC: NEPC 08:39 → NEDA 08:39 → MERGE 11:31 → NEDA 20:57 → HCIS 21:00
PROVIDERS: ADMIT Hospitalist; ATTEND Hospitalist

== ENCOUNTER 2018-02-10 12:42 | Inpatient (IN) ==
--- NOTE | 2018-02-10 14:29 | ED ---
HPI General Chief complaint: Skin/Abscess/Foreign Body Stated complaint: dr osman Time Seen by Provider: 02/10/18 14:13 Source: patient Mode of arrival: ambulatory Limitations: no limitations History of Present Illness HPI narrative: 67-year-old male with PMH of DM, CAD, HTN, HLD, COPD, right tibial plateau fracture (as trauma in August) presents the ED for evaluation of 1 week history of fever, increased pain, and discharge from the right tibial wound. The patient underwent 3 months of IV vancomycin, ended in December. The patient measured a fever of 103 by oral thermometer 2 days ago. He states that the increase in pain began gradually 5 days ago, is worsened to 10/10 and "excruciating" with attempted ambulation and touch. The pain is somewhat alleviated by elevating the leg and hydrocodone. He saw his primary care provider today who noted purulent drainage from the wound and sent him to the emergency room for further evaluation. Related Data Home Medications Medication Instructions Recorded Confirmed amlodipine [Norvasc] 10 mg PO DAILY 12/04/17 02/10/18 aspirin 81 mg PO QPM 12/04/17 02/10/18 atorvastatin [Lipitor] 40 mg PO HS 12/04/17 02/10/18 carvedilol [Coreg] 3.125 mg PO BID 12/04/17 02/10/18 chlordiazepoxide HCl 5 mg PO DAILY 12/04/17 02/10/18 cholecalciferol (vitamin D3) 2,000 unit PO DAILY 12/04/17 02/10/18 [Vitamin D3] citalopram [Celexa] 40 mg PO DAILY 12/04/17 02/10/18 clopidogrel [Plavix] 75 mg PO DAILY 12/04/17 02/10/18 coQ10 (ubiquinol) 200 mg PO DAILY 12/04/17 02/10/18 ergocalciferol (vitamin D2) 50,000 unit PO QWEEK 12/04/17 02/10/18 [Vitamin D2] fentanyl 1 patch TRANSDERMAL Q72H 12/04/17 02/10/18 finasteride 5 mg PO HS 12/04/17 02/10/18 furosemide [Lasix] 40 mg PO DAILY 12/04/17 02/10/18 gabapentin 300 mg PO Q8HR 12/04/17 02/10/18 hydrocodone-acetaminophen [[place]] 1 tab PO Q4-6H PRN 12/04/17 02/10/18 insulin glargine [Lantus U-100 100 unit SUB-Q QPM 12/04/17 02/10/18 Insulin] insulin lispro [Humalog U-100 5 - 10 units SUB-Q UD 12/04/17 02/10/18 Insulin] ipratropium-albuterol 3 ml INHALATION Q6-8H PRN 12/04/17 02/10/18 loratadine [Claritin] 10 mg PO DAILY 12/04/17 02/10/18 metformin [Glucophage] 1,000 mg PO BID 12/04/17 02/10/18 methocarbamol [Robaxin] 500 mg PO Q8HR 12/04/17 02/10/18 qmookmsp-lar-LI-lycopen-lutein 1 tab PO DAILY 12/04/17 02/10/18 [Centrum Silver] pramipexole 0.75 mg PO HS 12/04/17 02/10/18 spironolactone [Aldactone] 25 mg PO DAILY 12/04/17 02/10/18 tamsulosin 0.4 mg PO HS 12/04/17 02/10/18 tiotropium bromide [Spiriva with 1 cap INHALATION DAILY 12/04/17 02/10/18 HandiHaler] Previous Rx's Medication Instructions Recorded lisinopril 10 mg PO DAILY #30 tab 12/06/17 Allergies Allergy/AdvReac Type Severity Reaction Status Date / Time penicillin G Allergy Unknown childhood Verified 12/05/17 10:59 reaction Penicillins Allergy Unknown childhood Verified 12/05/17 08:09 reaction Review of Systems ROS: all other systems reviewed are negative [facility] Medical History Medical History Tibial plateau fracture, right (Acute) Bladder cancer (Acute) Bladder cancer (Acute) COPD (chronic obstructive pulmonary disease) (Acute) Cellulitis of right lower extremity (Acute) Diabetes (Acute) Hyperlipidemia associated with type 2 diabetes mellitus (Acute) Hypertension (Acute) Ischemic cardiomyopathy (Acute) Myocardial infarction (Acute) Tibial plateau fracture (Acute) Family History Family History Father Pancreatic cancer Brother Coronary artery disease Social History Social History Substance History: No History of Abuse Second Hand Smoke Exposure: No Smoking Status: Current every day smoker Tobacco Type: Cigars How Often Do You Have a Drink Containing Alcohol: Monthly or less Recent Travel in [facility] within the Last 8 Weeks: No Recent Out of Country Travel within the Last 8 Weeks: No Exam Narrative Exam Narrative: GENERAL: Well-nourished, well-developed white male no acute distress. SKIN: Focused skin assessment warm/dry. HEAD: Atraumatic. Normocephalic. EYES: Pupils equal and round. No scleral icterus. No injection or drainage. ENT: No nasal bleeding or discharge. Mucous membranes pink and moist. NECK: Trachea midline. No JVD. CARDIOVASCULAR: Regular rate and rhythm. No murmur appreciated. RESPIRATORY: No accessory muscle use. Clear to auscultation. Breath sounds equal bilaterally. GASTROINTESTINAL: Abdomen soft, non-tender, nondistended. Hepatic and splenic margins not palpable. MUSCULOSKELETAL: No obvious deformities. No clubbing. No cyanosis. No edema. FOCUSED RIGHT LOWER EXTREMITY EXAM: 2+ DP pulse. Patient is able to wiggle toes and extend the ankle. He states he has drop foot secondary to his injury. There is a 1-2 cm open wound on the lateral aspect of the proximal tib-fib draining cloudy serosanguineous fluid. This area is tender, warm, mildly erythematous. Patient is able to flex and extend the leg though this elicits pain. Neurovascularly intact distally. NEUROLOGICAL: Awake and alert. No obvious cranial nerve deficits. Motor grossly within normal limits. Normal speech. PSYCHIATRIC: Appropriate mood and affect; insight and judgment normal. Course Initial Documented Vital Signs Temperature 97.9 F 02/10/18 12:52 Pulse Rate 62 02/10/18 12:52 Respiratory Rate 16 02/10/18 12:52 Blood Pressure 114/56 L 02/10/18 12:52 Pulse Oximetry 97 02/10/18 12:52 Last Documented Vital Signs Temperature 98.0 F 02/12/18 04:00 Pulse Rate 55 L 02/12/18 04:00 Respiratory Rate 12 02/12/18 08:05 Blood Pressure 119/56 L 02/12/18 04:00 Pulse Oximetry 98 02/12/18 04:00 Medical Decision Making DESHAUN Attestation DESHAUN supervised visit: Yes Attestation: I, Dr. Lang, have reviewed the advance practice practitioner's documentation and am in agreement, met with the patient face to face, made the diagnosis, and the medical decision making was done by me. *My assessment and Findings: This is a patient who has hardware in his knee secondary to a tibial plateau fracture. He has already had IV antibiotics times 3 months which ended in December. He presented with a one-week history of increasing pain in his knee with purulent drainage. This was associated with a fever. This patient has been evaluated for a septic joint. He is being admitted to the hospital for further treatment. Please see Cynthia Garcia PA-C's note for a more detailed H&P, final diagnosis and disposition MDM Narrative Medical decision making narrative: 67-year-old male with PMH of DM, CAD, HTN, HLD, COPD, right tibial plateau fracture (as trauma in August) presents the ED for evaluation of 1 week history of fever, increased pain, and discharge from the right tibial wound. The patient underwent 3 months of IV vancomycin, ended in December. On presentation the patient is afebrile. He states that he has been taking aspirin and [place] with acetaminophen and there every 4 hours. The right leg is warm and mildly erythematous. There is a 1-2 cm thin open wound that is draining cloudy serosanguineous fluid. This was cultured. Blood cultures were obtained. Patient was administered vancomycin, aztreonam, doxycycline. Lab work reveals WBC 12.9, CRP of 14, ESR of 35. CT lower extremity: Healing comminuted fracture deformity of the proximal tibia status post open rigid internal fixation with lateral screw plate fixation device in place. There is diffuse patchy sclerosis and lucency with indistinct fracture lines. The findings could indicate infection.2. Healing comminuted fracture of the proximal fibula.3. Cirrhosis as well as numerous small patchy lucencies in the distal femur and patella.4. Joint effusion and extensive soft tissue swelling. Multiple calls were placed to Dr. Garcia. I spoke with Dr. Catalan who agrees to accept the patient to the medicine service. Please see ortho and medicine notes for disposition. Medical Screen Exam Complete: Yes Emergency Medical Condition: Yes Lab Data Result diagrams: 02/11/18 05:58 02/11/18 05:58 Lab Results 02/10/18 02/10/18 02/10/18 Range/Units 14:45 14:45 14:45 WBC 12.9 H (4.0-11.0) th/mm3 RBC 4.74 (4.50-5.90) mil/mm3 Hgb 11.4 L (13.0-17.0) gm/dL Hct 35.4 L (39.0-51.0) % MCV 74.5 L (80.0-100.0) fL MCH 24.0 L (27.0-34.0) pg MCHC 32.1 (32.0-36.0) % RDW 19.4 H (11.6-17.2) % Plt Count 280 (150-450) th/mm3 MPV 8.6 (7.0-11.0) fL Neut % (Auto) 71.1 H (16.0-70.0) % Lymph % (Auto) 16.6 (9.0-44.0) % [place] % (Auto) 10.2 H (0.0-8.0) % Eos % (Auto) 1.2 (0.0-4.0) % Baso % (Auto) 0.9 (0.0-2.0) % Neut # (Auto) 9.2 H (1.8-7.7) th/mm3 Lymph # (Auto) 2.1 (1.0-4.8) th/mm3 [place] # (Auto) 1.3 H (0.0-0.9) th/mm3 Eos # (Auto) 0.2 (0.0-0.4) th/mm3 Baso # (Auto) 0.1 (0.0-0.2) th/mm3 WBC Differential . Differential Comment Auto diff final ESR (0-20) mm/hr PT 10.3 (9.8-11.6) sec INR 1.0 Ratio Sodium 135 L (136-145) meq/L Potassium 5.0 (3.5-5.1) meq/L Chloride 103 (98-107) meq/L Carbon Dioxide 24.8 (21.0-32.0) meq/L Anion Gap 7 (5-15) meq/L BUN 20 H (7-18) mg/dL Creatinine 1.26 (0.60-1.30) mg/dL Estimated GFR 57 L (>89) mL/min POC Glucose (68-110) mg/dl Random Glucose 122 H (74-106) mg/dL Lactic Acid (0.4-2.0) mmol/L Calcium 8.9 (8.5-10.1) mg/dL Total Bilirubin 0.6 (0.2-1.0) mg/dL AST 42 H (15-37) U/L ALT 12 (12-78) U/L Alkaline Phosphatase 109 (45-117) U/L C-Reactive Protein (0.00-0.30) mg/dL Total Protein 8.4 H (6.4-8.2) g/dL Albumin 3.5 (3.4-5.0) g/dL 02/10/18 02/10/18 02/10/18 Range/Units 14:45 14:45 14:45 WBC (4.0-11.0) th/mm3 RBC (4.50-5.90) mil/mm3 Hgb (13.0-17.0) gm/dL Hct (39.0-51.0) % MCV (80.0-100.0) fL MCH (27.0-34.0) pg MCHC (32.0-36.0) % RDW (11.6-17.2) % Plt Count (150-450) th/mm3 MPV (7.0-11.0) fL Neut % (Auto) (16.0-70.0) % Lymph % (Auto) (9.0-44.0) % [place] % (Auto) (0.0-8.0) % Eos % (Auto) (0.0-4.0) % Baso % (Auto) (0.0-2.0) % Neut # (Auto) (1.8-7.7) th/mm3 Lymph # (Auto) (1.0-4.8) th/mm3 [place] # (Auto) (0.0-0.9) th/mm3 Eos # (Auto) (0.0-0.4) th/mm3 Baso # (Auto) (0.0-0.2) th/mm3 WBC Differential Differential Comment ESR 35 H (0-20) mm/hr PT (9.8-11.6) sec INR Ratio Sodium (136-145) meq/L Potassium (3.5-5.1) meq/L Chloride (98-107) meq/L Carbon Dioxide (21.0-32.0) meq/L Anion Gap (5-15) meq/L BUN (7-18) mg/dL Creatinine (0.60-1.30) mg/dL Estimated GFR (>89) mL/min POC Glucose (68-110) mg/dl Random Glucose (74-106) mg/dL Lactic Acid 1.3 (0.4-2.0) mmol/L Calcium (8.5-10.1) mg/dL Total Bilirubin (0.2-1.0) mg/dL AST (15-37) U/L ALT (12-78) U/L Alkaline Phosphatase (45-117) U/L C-Reactive Protein 14.00 H (0.00-0.30) mg/dL Total Protein (6.4-8.2) g/dL Albumin (3.4-5.0) g/dL 02/10/18 02/10/18 02/11/18 Range/Units 21:55 23:52 05:58 WBC 9.2 (4.0-11.0) th/mm3 RBC 4.44 L (4.50-5.90) mil/mm3 Hgb 10.4 L (13.0-17.0) gm/dL Hct 33.1 L (39.0-51.0) % MCV 74.6 L (80.0-100.0) fL MCH 23.4 L (27.0-34.0) pg MCHC 31.3 L (32.0-36.0) % RDW 19.1 H (11.6-17.2) % Plt Count 250 (150-450) th/mm3 MPV 8.7 (7.0-11.0) fL Neut % (Auto) (16.0-70.0) % Lymph % (Auto) (9.0-44.0) % [place] % (Auto) (0.0-8.0) % Eos % (Auto) (0.0-4.0) % Baso % (Auto) (0.0-2.0) % Neut # (Auto) (1.8-7.7) th/mm3 Lymph # (Auto) (1.0-4.8) th/mm3 [place] # (Auto) (0.0-0.9) th/mm3 Eos # (Auto) (0.0-0.4) th/mm3 Baso # (Auto) (0.0-0.2) th/mm3 WBC Differential Differential Comment ESR (0-20) mm/hr PT (9.8-11.6) sec INR Ratio Sodium (136-145) meq/L Potassium (3.5-5.1) meq/L Chloride (98-107) meq/L Carbon Dioxide (21.0-32.0) meq/L Anion Gap (5-15) meq/L BUN (7-18) mg/dL Creatinine (0.60-1.30) mg/dL Estimated GFR (>89) mL/min POC Glucose 204 H 152 H (68-110) mg/dl Random Glucose (74-106) mg/dL Lactic Acid (0.4-2.0) mmol/L Calcium (8.5-10.1) mg/dL Total Bilirubin (0.2-1.0) mg/dL AST (15-37) U/L ALT (12-78) U/L Alkaline Phosphatase (45-117) U/L C-Reactive Protein (0.00-0.30) mg/dL Total Protein (6.4-8.2) g/dL Albumin (3.4-5.0) g/dL 02/11/18 02/11/18 02/11/18 Range/Units 05:58 07:35 13:24 WBC (4.0-11.0) th/mm3 RBC (4.50-5.90) mil/mm3 Hgb (13.0-17.0) gm/dL Hct (39.0-51.0) % MCV (80.0-100.0) fL MCH (27.0-34.0) pg MCHC (32.0-36.0) % RDW (11.6-17.2) % Plt Count (150-450) th/mm3 MPV (7.0-11.0) fL Neut % (Auto) (16.0-70.0) % Lymph % (Auto) (9.0-44.0) % [place] % (Auto) (0.0-8.0) % Eos % (Auto) (0.0-4.0) % Baso % (Auto) (0.0-2.0) % Neut # (Auto) (1.8-7.7) th/mm3 Lymph # (Auto) (1.0-4.8) th/mm3 [place] # (Auto) (0.0-0.9) th/mm3 Eos # (Auto) (0.0-0.4) th/mm3 Baso # (Auto) (0.0-0.2) th/mm3 WBC Differential Differential Comment ESR (0-20) mm/hr PT (9.8-11.6) sec INR Ratio Sodium 138 (136-145) meq/L Potassium 4.3 (3.5-5.1) meq/L Chloride 105 (98-107) meq/L Carbon Dioxide 22.9 (21.0-32.0) meq/L Anion Gap 10 (5-15) meq/L BUN 17 (7-18) mg/dL Creatinine 0.97 (0.60-1.30) mg/dL Estimated GFR 77 L (>89) mL/min POC Glucose 136 H 147 H (68-110) mg/dl Random Glucose 115 H (74-106) mg/dL Lactic Acid (0.4-2.0) mmol/L Calcium 8.6 (8.5-10.1) mg/dL Total Bilirubin (0.2-1.0) mg/dL AST (15-37) U/L ALT (12-78) U/L Alkaline Phosphatase (45-117) U/L C-Reactive Protein (0.00-0.30) mg/dL Total Protein (6.4-8.2) g/dL Albumin (3.4-5.0) g/dL 02/11/18 02/11/18 02/11/18 Range/Units 13:57 16:30 20:03 WBC (4.0-11.0) th/mm3 RBC (4.50-5.90) mil/mm3 Hgb (13.0-17.0) gm/dL Hct (39.0-51.0) % MCV (80.0-100.0) fL MCH (27.0-34.0) pg MCHC (32.0-36.0) % RDW (11.6-17.2) % Plt Count (150-450) th/mm3 MPV (7.0-11.0) fL Neut % (Auto) (16.0-70.0) % Lymph % (Auto) (9.0-44.0) % [place] % (Auto) (0.0-8.0) % Eos % (Auto) (0.0-4.0) % Baso % (Auto) (0.0-2.0) % Neut # (Auto) (1.8-7.7) th/mm3 Lymph # (Auto) (1.0-4.8) th/mm3 [place] # (Auto) (0.0-0.9) th/mm3 Eos # (Auto) (0.0-0.4) th/mm3 Baso # (Auto) (0.0-0.2) th/mm3 WBC Differential Differential Comment ESR (0-20) mm/hr PT (9.8-11.6) sec INR Ratio Sodium (136-145) meq/L Potassium (3.5-5.1) meq/L Chloride (98-107) meq/L Carbon Dioxide (21.0-32.0) meq/L Anion Gap (5-15) meq/L BUN (7-18) mg/dL Creatinine (0.60-1.30) mg/dL Estimated GFR (>89) mL/min POC Glucose 149 H 267 H 213 H (68-110) mg/dl Random Glucose (74-106) mg/dL Lactic Acid (0.4-2.0) mmol/L Calcium (8.5-10.1) mg/dL Total Bilirubin (0.2-1.0) mg/dL AST (15-37) U/L ALT (12-78) U/L Alkaline Phosphatase (45-117) U/L C-Reactive Protein (0.00-0.30) mg/dL Total Protein (6.4-8.2) g/dL Albumin (3.4-5.0) g/dL 02/12/18 Range/Units 07:14 WBC (4.0-11.0) th/mm3 RBC (4.50-5.90) mil/mm3 Hgb (13.0-17.0) gm/dL Hct (39.0-51.0) % MCV (80.0-100.0) fL MCH (27.0-34.0) pg MCHC (32.0-36.0) % RDW (11.6-17.2) % Plt Count (150-450) th/mm3 MPV (7.0-11.0) fL Neut % (Auto) (16.0-70.0) % Lymph % (Auto) (9.0-44.0) % [place] % (Auto) (0.0-8.0) % Eos % (Auto) (0.0-4.0) % Baso % (Auto) (0.0-2.0) % Neut # (Auto) (1.8-7.7) th/mm3 Lymph # (Auto) (1.0-4.8) th/mm3 [place] # (Auto) (0.0-0.9) th/mm3 Eos # (Auto) (0.0-0.4) th/mm3 Baso # (Auto) (0.0-0.2) th/mm3 WBC Differential Differential Comment ESR (0-20) mm/hr PT (9.8-11.6) sec INR Ratio Sodium (136-145) meq/L Potassium (3.5-5.1) meq/L Chloride (98-107) meq/L Carbon Dioxide (21.0-32.0) meq/L Anion Gap (5-15) meq/L BUN (7-18) mg/dL Creatinine (0.60-1.30) mg/dL Estimated GFR (>89) mL/min POC Glucose 188 H (68-110) mg/dl Random Glucose (74-106) mg/dL Lactic Acid (0.4-2.0) mmol/L Calcium (8.5-10.1) mg/dL Total Bilirubin (0.2-1.0) mg/dL AST (15-37) U/L ALT (12-78) U/L Alkaline Phosphatase (45-117) U/L C-Reactive Protein (0.00-0.30) mg/dL Total Protein (6.4-8.2) g/dL Albumin (3.4-5.0) g/dL Imaging Data Radiologist's impression: Chest X-Ray 02/10/18 14:41 CONCLUSION: 1. Cardiomegaly. 2. Minimal increased interstitial markings bilaterally consistent with possible minimal congestion. Clinical correlation is recommended. Knee CT 02/10/18 14:41 CONCLUSION: 1. Healing comminuted fracture deformity of the proximal tibia status post open rigid internal fixation with lateral screw plate fixation device in place. There is diffuse patchy sclerosis and lucency with indistinct fracture lines. The findings could indicate infection. 2. Healing comminuted fracture of the proximal fibula. 3. Cirrhosis as well as numerous small patchy lucencies in the distal femur and patella. 4. Joint effusion and extensive soft tissue swelling. Tibia/Fibula X-Ray 02/10/18 14:41 CONCLUSION: 1. Status post open rigid internal fixation of a proximal tibial fracture with patchy sclerosis and lucency which is nonspecific. 2. Deformity of the proximal fibula as well. 3. Patchy sclerosis involving the distal femur. Knee X-Ray 02/11/18 00:00 CONCLUSION: Status post hardware removal as described above. ECG Data EKG Prior to Arrival: No Attestation: I personally reviewed and interpreted this ECG as follows: (EKG shows a sinus rhythm with a rate of 62. He has a right bundle branch block. There are no acute ischemic changes. His EKG is unchanged from previous.) Prior ECG tracings: available for review Discharge Plan Discharge Disposition Patient Disposition: 30 Still Patient Physicians Team ED Provider: Gloria Lang ED Midlevel Provider: Cynthia Garcia Primary Care Provider: Primary Care Cassi,Dorothy Attending Provider: Adrianna Bernstein Other Providers: Ragini Day ; Delvis Garcia ; Abril More ; Humanalexsander,[employer] Status ED Status: Left Department Discharge Information Discharge Date/Time: 02/10/18 19:51
[2018-02-10] MEDS ORDERED: Sod Chloride 0.9% Inj 1,000 ML IV.SIG ONE (14:41)
[2018-02-10] MEDS ORDERED: Morphine Inj 4 MG, Morphine Inj 2 MG IV.PUSH ONE ×2 (14:43)
[2018-02-10] MEDS ORDERED: Aztreonam Inj 2 GM in Sodium Chloride 0.9% Inj 100 ML IV.SIG ONE (14:47)
[2018-02-10 15:13] LABS: Baso # (Auto) 0.1 th/mm3 (0.0-0.2); Baso % (Auto) 0.9 % (0.0-2.0); Eos # (Auto) 0.2 th/mm3 (0.0-0.4); Eos % (Auto) 1.2 % (0.0-4.0); Hematocrit 35.4 % (39.0-51.0); Hemoglobin 11.4 gm/dL (13.0-17.0); Lymph # (Auto) 2.1 th/mm3 (1.0-4.8); Lymph % (Auto) 16.6 % (9.0-44.0); Mean Corpuscular HGB Conc 32.1 % (32.0-36.0); Mean Corpuscular Volume 74.5 fL (80.0-100.0); Mean Platelet Volume 8.6 fL (7.0-11.0); Mono # (Auto) 1.3 th/mm3 (0.0-0.9); Mono % (Auto) 10.2 % (0.0-8.0); Neut # (Auto) 9.2 th/mm3 (1.8-7.7); Neut % (Auto) 71.1 % (16.0-70.0); Platelet Count 280 th/mm3 (150-450); Red Blood Count 4.74 mil/mm3 (4.50-5.90); Red Cell Distribution Width 19.4 % (11.6-17.2); White Blood Count 12.9 th/mm3 (4.0-11.0)
[2018-02-10 15:36] LABS: Alanine Aminotransferase 12 U/L (12-78); Alkaline Phosphatase 109 U/L (45-117); Total Protein 8.4 g/dL (6.4-8.2)
[2018-02-10 15:38] LABS: Albumin 3.5 g/dL (3.4-5.0); Anion Gap 7 meq/L (5-15); Aspartate Aminotransferase 42 U/L (15-37); Blood Urea Nitrogen 20 mg/dL (7-18); Calcium 8.9 mg/dL (8.5-10.1); Carbon Dioxide 24.8 meq/L (21.0-32.0); Chloride 103 meq/L (98-107); Glomerular Filtration Rate 57 mL/min (>89); Glucose,Random 122 mg/dL (74-106); Sodium 135 meq/L (136-145)
[2018-02-10 15:40] LABS: Prothrombin Time 10.3 sec (9.8-11.6)
--- NOTE | 2018-02-10 15:55 | XR ---
EXAM DATE: 02/10/2018 2:41 PM EDT AGE/SEX: 67 years / Male INDICATIONS: Fever. Infection of right leg. CLINICAL DATA: This is the patient's initial encounter. Patient reports that signs and symptoms have been present for 1 day and indicates a pain score of 0/10. MEDICAL/SURGICAL HISTORY: None. None. COMPARISON: [facility], XR CHEST PA AND LAT, 03/26/2017. . FINDINGS: The heart is enlarged. Minimal increased interstitial markings are noted bilaterally consistent with possible minimal congestion. Clinical correlation is recommended. No focal alveolar consolidation is noted. Hardware is noted within the cervical thoracic region. CONCLUSION: 1. Cardiomegaly. 2. Minimal increased interstitial markings bilaterally consistent with possible minimal congestion. Clinical correlation is recommended. Electronically signed by: Aguila Rasmussen MD 02/10/2018 3:54 PM EDT
--- NOTE | 2018-02-10 15:58 | CT ---
EXAM DATE: 02/10/2018 2:53 PM EDT AGE/SEX: 67 years / Male INDICATIONS: Surgical site infection CLINICAL DATA: This is the patient's initial encounter. Patient reports that signs and symptoms have been present for 1 day and indicates a pain score of 4/10. MEDICAL/SURGICAL HISTORY: Carcinoma, bladder. Chronic obstructive pulmonary disease. Diabetes. c ardia . knee surgery for trauma RADIATION DOSE: 7.29 CTDI (mGy) COMPARISON: No prior exams available for comparison. TECHNIQUE: Multiple contiguous axial images were acquired using a multirow detector CT scanner after the intravenous administration of 98 ml Omnipaque 350 (iohexol) nonionic water-soluble contrast as a single exam dose. Multiplanar reconstruction was performed in the sagittal and coronal planes. Usi ng automated exposure control and adjustment of the mA and/or kV according to patient size, radiation dose was kept as low as reasonably achievable to obtain optimal diagnostic quality images. DICOM fo rmat image data is available electronically for review and comparison. FINDINGS: There is a screw plate fixation device along the lateral proximal femur with multiple screws extendin g horizontally across the proximal femur. There is a single transverse lag screw extending anteriorly to posteriorly. There is a comminuted fracture deformity with areas of patchy sclerosis as well as l ucency. Multiple fracture lines remain evident. Several of the fracture lines extend into the joint. There is sclerotic periosteal new bone formation along the posterior proximal tibia. There is a comminuted fracture deformity of the proximal tibia with multiple fracture lines. There is sclerosis and patchy lucency. Small amount of bilateral callus. There is patchy sclerosis and numerous small lucencies involving the femur and patella. There is evid ence of a joint effusion. There is soft tissue swelling greatest along the lateral knee. CONCLUSION: 1. Healing comminuted fracture deformity of the proximal tibia status post open rigid internal fixat ion with lateral screw plate fixation device in place. There is diffuse patchy sclerosis and lucency with indistinct fracture lines. The findings could indicate infection. 2. Healing comminuted fracture of the proximal fibula. 3. Cirrhosis as well as numerous small patchy lucencies in the distal femur and patella. 4. Joint effusion and extensive soft tissue swelling. Electronically signed by: Naif Uriostegui MD 02/10/2018 3:56 PM EDT
--- NOTE | 2018-02-10 16:13 | XR ---
EXAM DATE: 02/10/2018 2:41 PM EDT AGE/SEX: 67 years / Male INDICATIONS: Right proximal tibia infection. CLINICAL DATA: This is the patient's initial encounter. Patient reports that signs and symptoms have been present for 3 days and indicates a pain score of 10/10. MEDICAL/SURGICAL HISTORY: None. . Tibia ORIF in August 2017. COMPARISON: No prior exams available for comparison. FINDINGS: AP and lateral views of the right tibia and fibula were obtained and demonstrate a screw plate fixati on device along the lateral proximal tibia transfixing a comminuted fracture deformity. There is patc hy sclerosis and ill-defined lucent fracture lines. There is a fracture deformity of the proximal fib sp as well. There are additional screw holes in the mid tibia. The distal tibia and fibula are intac t with mild osteopenia. There is also patchy sclerosis involving the distal femur. CONCLUSION: 1. Status post open rigid internal fixation of a proximal tibial fracture with patchy sclerosis and lucency which is nonspecific. 2. Deformity of the proximal fibula as well. 3. Patchy sclerosis involving the distal femur. Electronically signed by: Naif Uriostegui MD 02/10/2018 4:11 PM EDT
[2018-02-10] MEDS: Vancomycin Inj 1,000 MG in Sodium Chlor 0.9% Inj 250 ML IV.SIG SCH (16:51)
[2018-02-10] MEDS ORDERED: Acetaminophen 325 MG Tablet PO PRN (18:28)
[2018-02-10] MEDS ORDERED: Bisacodyl 10 MG Supp RECTAL PRN (18:28)
[2018-02-10] MEDS ORDERED: Temazepam 15 MG Capsule PO PRN (18:28)
--- NOTE | 2018-02-10 18:30 | P.HPIM ---
History of Present Illness Primary Care Physician: Dr. Tejeda History of Present Illness: 67 YOWM with history of CAD, COPD, CHF, DM, HLD, HTN, and recent traumatic R tibial plateau fracture (August 2017 s/p repair with Dr. Garcia) complicated by infection October 2017 requiring a long course of IV vancomycin presented to the ED for evaluation of progressive right knee pain and drainage. The patient reports he completed outpatient IV vancomycin sometime in early December and started weightbearing about six weeks ago. He states he had been gradually improving but then about five days ago he started have pain around his right knee and subsequent malodorous, clear drainage from the prior surgical site. The following day he had a fever of 103. He states during this time he has been nauseous, fatigued, and with general malaise. He states today the drainage began having more of a white-yellow tint to it. He states the drainage has been copious. He has been unable to bear weight on the right leg secondary to pain. He has been taking Emmett at home with good relief. He went to his PCP today who recommended he be evaluated here in the ED. - Diagnosis (1) Wound infection after surgery Inpatient Certification: I certify that the inpatient services were ordered in accordance with Medicare regulations governing the order. This includes certification that hospital inpatient services are reasonable and necessary and in the case of services not specified as inpatient-only under 42 CFR 419.22(n), that they are appropriately provided as inpatient services in accordance to with the 2-midnight benchmark under 43 CFR 412.3(e) Estimated Total Length of Stay (Days): 3 Plans for Post Hospital Care: Not yet determined Review of Systems All other systems reviewed negative except as stated in HPI Constitutional: Reports anorexia, Reports chills, Reports fatigue, Reports fever (s), Reports lack of energy, Reports malaise Cardiovascular: Denies chest pain, Denies irregular heart rhythm, Denies shortness of breath Respiratory: Reports cough Gastrointestinal: Reports nausea, Denies abdominal pain, Denies vomiting Musculoskeletal: Reports joint pain, Reports limited joint movement PMFSH - History History Provided By: Patient - Medical History Medical History: Medical History (Last Updated 02/10/18 @ 20:55 by Mel Catalan MD) Tibial plateau fracture, right (Acute) Bladder cancer COPD (chronic obstructive pulmonary disease) Cellulitis of right lower extremity Diabetes Hyperlipidemia associated with type 2 diabetes mellitus Hypertension Ischemic cardiomyopathy Myocardial infarction Tibial plateau fracture - Surgical History Surgical History: Surgical History (Last Updated 02/10/18 @ 20:56 by Mel Catalan MD) H/O cardiac catheterization History of open reduction and internal fixation (ORIF) procedure - Family History Family History: Family History (Last Reviewed 02/10/18 @ 20:56 by Mel Catalan MD) Father Pancreatic cancer Brother Coronary artery disease - Social History I have reviewed the patient's Social History: Yes - Tobacco History Second Hand Smoke Exposure: Yes Tobacco Use In Past 30 Days: Yes Smoking Status: Current every day smoker Tobacco Type: Cigars - Alcohol History How Often Do You Have a Drink Containing Alcohol: Never - Substance Use History Substance History: No History of Abuse - Travel History Recent Travel in the [place] Within the Last 8 Weeks: No Recent Travel Out of the Country Within the Last 8 Weeks: No - Immunization History Tetanus Immunization: <5 Years Medications and Allergies Active Medications: Active Medications Acetaminophen (Tylenol) 650 mg PO Q4H PRN PRN Reason: Temp > 100.4 Al Hydroxide/Mg Hydroxide (Milk Of Magnesia Liq) 30 ml PO Q12H PRN PRN Reason: Mild Constipation Bisacodyl (Dulcolax Supp) 10 mg RECTAL DAILY PRN PRN Reason: SEVERE CONSITIPATION Vancomycin HCl 1,000 mg/ (Sodium Chloride) 250 mls @ 250 mls/hr IV.SIG Q12H BEBA Last Infusion: 02/10/18 18:01 Dose: Infused Lactulose (Lactulose Liq) 30 ml PO DAILY PRN PRN Reason: SEVERE CONSITIPATION Ondansetron HCl (Zofran Inj) 4 mg IV.PUSH Q6H PRN PRN Reason: NAUSEA OR VOMITING Senna/Docusate Sodium (Ml-Colace) 1 tab PO BID BEBA Sennosides (Senokot) 17.2 mg PO Q12H PRN PRN Reason: Moderate Constipation Sodium Chloride (Ns Flush) 2 ml IV.FLUSH PRN PRN PRN Reason: FLUSH AFTER USING IV ACCESS Temazepam (Restoril) 15 mg PO HS PRN PRN Reason: INSOMNIA Allergies Allergy/AdvReac Type Severity Reaction Status Date / Time penicillin G Allergy Unknown childhood Verified 12/05/17 10:59 reaction Penicillins Allergy Unknown childhood Verified 12/05/17 08:09 reaction Home Medications Medication Instructions Recorded Confirmed Type amlodipine [Norvasc] 10 mg PO DAILY 12/04/17 02/10/18 History aspirin 81 mg PO QPM 12/04/17 02/10/18 History atorvastatin [Lipitor] 40 mg PO HS 12/04/17 02/10/18 History carvedilol [Coreg] 3.125 mg PO BID 12/04/17 02/10/18 History chlordiazepoxide HCl 5 mg PO DAILY 12/04/17 02/10/18 History cholecalciferol (vitamin D3) 2,000 unit PO DAILY 12/04/17 02/10/18 History [Vitamin D3] citalopram [Celexa] 40 mg PO DAILY 12/04/17 02/10/18 History clopidogrel [Plavix] 75 mg PO DAILY 12/04/17 02/10/18 History coQ10 (ubiquinol) 200 mg PO DAILY 12/04/17 02/10/18 History ergocalciferol (vitamin D2) 50,000 unit PO QWEEK 12/04/17 02/10/18 History [Vitamin D2] fentanyl 1 patch TRANSDERMAL Q72H 12/04/17 02/10/18 History finasteride 5 mg PO HS 12/04/17 02/10/18 History furosemide [Lasix] 40 mg PO DAILY 12/04/17 02/10/18 History gabapentin 300 mg PO Q8HR 12/04/17 02/10/18 History hydrocodone-acetaminophen [Emmett] 1 tab PO Q4-6H PRN 12/04/17 02/10/18 History insulin glargine [Lantus U-100 100 unit SUB-Q QPM 12/04/17 02/10/18 History Insulin] insulin lispro [Humalog U-100 5 - 10 units SUB-Q UD 12/04/17 02/10/18 History Insulin] ipratropium-albuterol 3 ml INHALATION Q6-8H PRN 12/04/17 02/10/18 History loratadine [Claritin] 10 mg PO DAILY 12/04/17 02/10/18 History metformin [Glucophage] 1,000 mg PO BID 12/04/17 02/10/18 History methocarbamol [Robaxin] 500 mg PO Q8HR 12/04/17 02/10/18 History jbvjbvou-pxl-GE-lycopen-lutein 1 tab PO DAILY 12/04/17 02/10/18 History [Centrum Silver] pramipexole 0.75 mg PO HS 12/04/17 02/10/18 History spironolactone [Aldactone] 25 mg PO DAILY 12/04/17 02/10/18 History tamsulosin 0.4 mg PO HS 12/04/17 02/10/18 History tiotropium bromide [Spiriva with 1 cap INHALATION DAILY 12/04/17 02/10/18 History HandiHaler] Exam Vital signs: Vital Signs 02/10/18 12:52 02/10/18 14:37 Temperature 97.9 F Pulse Rate 62 61 Respiratory Rate 16 18 Blood Pressure 114/56 L 134/84 Pulse Oximetry 97 98 Intake & Output 02/09/18 02/10/18 02/10/18 18:59 06:59 18:59 Intake Total 1350 / 1350 Balance 1350 / 1350 Weight 89.63 kg Intake: IV 1350 / 1350 NS Inj 1,000 ML @ Wide Open IV. 1000 / 1000 SIG BOLUS ONE Rx#:[id number] Vancomycin Inj 1,000 MG In NS 250 / 250 Inj 250 ML @ 250 mls/hr IV.SIG Q12H BEBA Rx#:[id number] Flagyl 500 MG Inj 100 ML @ 100 100 / 100 mls/hr IV.SIG ONCE ONE Rx#: [id number] Narrative: GENERAL: WN, WD pleasant male resting in bed in [facility]. SKIN: Warm and dry. HEENT: AT/NC. Pupils equal and round. MMM. NECK: Supple no tender LAD or JVD. HEART: RRR no m/r/g. LUNGS: CTAB without wheezes or crackles. ABDOMEN: +BS, soft, NT, ND. EXTREMITIES: No LE pedal or ankle edema. 2+ pedal pulses. R knee warm and tender to touch with +effusion. R anterolateral knee with prior surgical incision with mild surrounding erythema and small opening where there is clear- yellow drainage. Neurovascular intact. NEURO: Awake and alert. PSYCH: Appropriate mood and affect. Results - Labs CBC & Chem 7: 02/10/18 14:45 02/10/18 14:45 Labs: Short CBC 02/10/18 Range/Units 14:45 WBC 12.9 H (4.0-11.0) th/mm3 Hgb 11.4 L (13.0-17.0) gm/dL Hct 35.4 L (39.0-51.0) % Plt Count 280 (150-450) th/mm3 BMP 02/10/18 14:45 Sodium 135 L Potassium 5.0 Chloride 103 Carbon Dioxide 24.8 BUN 20 H Creatinine 1.26 Calcium 8.9 Liver Function 02/10/18 Range/Units 14:45 Total Bilirubin 0.6 (0.2-1.0) mg/dL AST 42 H (15-37) U/L ALT 12 (12-78) U/L Alkaline Phosphatase 109 (45-117) U/L Albumin 3.5 (3.4-5.0) g/dL - Imaging Chest X-Ray 02/10/18 14:41 CONCLUSION: 1. Cardiomegaly. 2. Minimal increased interstitial markings bilaterally consistent with possible minimal congestion. Clinical correlation is recommended. Knee CT 02/10/18 14:41 CONCLUSION: 1. Healing comminuted fracture deformity of the proximal tibia status post open rigid internal fixation with lateral screw plate fixation device in place. There is diffuse patchy sclerosis and lucency with indistinct fracture lines. The findings could indicate infection. 2. Healing comminuted fracture of the proximal fibula. 3. Cirrhosis as well as numerous small patchy lucencies in the distal femur and patella. 4. Joint effusion and extensive soft tissue swelling. Tibia/Fibula X-Ray 02/10/18 14:41 CONCLUSION: 1. Status post open rigid internal fixation of a proximal tibial fracture with patchy sclerosis and lucency which is nonspecific. 2. Deformity of the proximal fibula as well. 3. Patchy sclerosis involving the distal femur. Caprini VTE Risk Assessment Caprini VTE Risk Assessment: Moderate/High Risk (score >= 2) Caprini Risk Assessment Model: Point Value = 1 Point Value = 2 Point Value = 3 Point Value = 5 Age 41-60 Minor surgery BMI > 25 kg/m2 Swollen legs Varicose veins or History of unexplained or recurrent spontaneous Oral contraceptives or hormone replacement Sepsis (< 1 month) Serious lung disease, including pneumonia (< 1 month) Abnormal pulmonary function Acute myocardial infarction Congestive heart failure (< 1 month) History of inflammatory bowel disease Medical patient at bed rest Age 61-74 Arthroscopic surgery Major open surgery (> 45 min) Laparoscopic surgery (> 45 min) Malignancy Confined to bed (> 72 hours) Immobilizing plaster cast Central venous access Age >= 75 History of VTE Family history of VTE Factor V Leiden Prothrombin [id number] Lupus anticoagulant Anticardiolipin antibodies Elevated serum homocysteine Heparin-induced thrombocytopenia Other congenital or acquired thrombophilia Stroke (< 1 month) Elective arthroplasty Hip, pelvis, or leg fracture Acute spinal cord injury (< 1 month) Prophylaxis Regimen: Total Risk Factor Score Risk Level Prophylaxis Regimen 0-1 Low Early ambulation 2 Moderate Order ONE of the following: *Sequential Compression Device (SCD) *Heparin 5000 units SQ BID 3-4 Higher Order ONE of the following medications: *Heparin 5000 units SQ TID *Enoxaparin/Lovenox 40 mg SQ daily (WT < 150 kg, CrCl > 30 mL/min) *Enoxaparin/Lovenox 30 mg SQ daily (WT < 150 kg, CrCl > 10-29 mL/min) *Enoxaparin/Lovenox 30 mg SQ BID (WT < 150 kg, CrCl > 30 mL/min) AND/OR *Sequential Compression Device (SCD) 5 or more Highest Order ONE of the following medications: *Heparin 5000 units SQ TID (Preferred with Epidurals) *Enoxaparin/Lovenox 40 mg SQ daily (WT < 150 kg, CrCl > 30 mL/min) *Enoxaparin/Lovenox 30 mg SQ daily (WT < 150 kg, CrCl > 10-29 mL/min) *Enoxaparin/Lovenox 30 mg SQ BID (WT < 150 kg, CrCl > 30 mL/min) AND *Sequential Compression Device (SCD) Assessment and Plan - Assessment (1) Wound infection after surgery Code(s): T81.49XA - Infection following a procedure, other surgical site, initial encounter Status: Acute - Plan 67 YOWM with history of CAD, COPD, CHF, DM, HLD, HTN, and recent traumatic R tibial plateau fracture (August 2017 s/p repair with Dr. Garcia) complicated by infection October 2017 requiring a long course of IV vancomycin presented to the ED for evaluation of progressive right knee pain and drainage around surgical site. 1. Possible septic L knee with hardware in place - Afebrile but leukocytosis present and patient with reported temperature of 103 at home - ESR and CRP elevated - Lactic acid WNL - Knee is warm with effusion and surgical scar has an open area of drainage and mild erythema - Wound and blood cultures pending - CT showing healing comminuted fracture deformity of the proximal tibia status post open rigid internal fixation with lateral screw plate fixation device in place. There is diffuse patchy sclerosis and lucency with indistinct fracture lines. The findings could indicate infection. Joint effusion and extensive soft tissue swelling - Tib/fib XR showing nonspecific patchy sclerosis and lucency around proximal tibial fracture as well as patchy sclerosis involving the distal femur - Ortho and ID consulted - Given vanco, aztreonam, and Flagyl in the ED - Will just continue IV vancomycin for now - Emmett PRN 2. CAD with multiple stents - No active chest pain - Holding home ASA and Plavix for possible ortho surgery - Continue carvedilol and lisinopril 3. COPD - Not in acute exacerbation - Supplemental O2 PRN - Resume home inhalers - Nebs PRN 4. CHF - CXR showing some cardiomegaly and mild pulmonary congestion - Lungs are clear on my exam and patient appears to be euvolemic - Continue home Lasix, carvedilol, and spironolactone 5. DM - Hold home metformin and Levemir since patient going to be NPO after midnight - SSI with AccuChecks per protocol 6. HLD - Resume home statin 7. HTN - BP stable - Resume home carvedilol, amlodipine, and lisinopril 8. BPH - Continue home Flomax 9. Depression - Continue home meds DVT prophylaxis: hold chemical anticoagulation for possible surgery Code Status: FULL Discussed Condition With: Patient and ED
[2018-02-10] MEDS ORDERED: Dextrose 50% in Water 50 ML Vial IV.PUSH PRN (19:04)
[2018-02-10] MEDS: Gabapentin 300 MG Capsule PO SCH (21:50)
[2018-02-10] MEDS: Senna/Docusate Sodium 8.6/50 MG Tablet PO SCH (21:50)
[2018-02-10] MEDS: Finasteride 5 MG Tablet PO SCH (21:51)
[2018-02-10] MEDS: Insulin NovoLOG Aspart Correctional Sugar Inj SQ SCH (22:00)
--- NOTE | 2018-02-10 22:13 | ECG ---
Date Performed: 02/10/2018 Time Performed: 14:23:39 PTAGE: 67 years EKG: Sinus rhythm INDETERMINATE AXIS RIGHT BUNDLE BRANCH BLOCK LATERAL MYOCARDIAL INFARCTION INFERIOR MYOCARDIAL INFAR CTION ABNORMAL ECG PREVIOUS TRACING : 04/06/2015 07.29 Since the previous tracing, no significant change noted DOCTOR: Shama Paula Interpretating Date/Time 02/10/2018 22:11:31
[2018-02-11] MEDS ORDERED: Aztreonam Inj 2 GM in Sodium Chloride 0.9% Inj 100 ML IV.SIG SCH (02:00)
[2018-02-11] MEDS: Vancomycin Inj 1,000 MG in Sodium Chlor 0.9% Inj 250 ML IV.SIG SCH (03:57)
[2018-02-11] MEDS: Gabapentin 300 MG Capsule PO SCH ×3 (05:38→21:51)
[2018-02-11 07:31] LABS: Hematocrit 33.1 % (39.0-51.0); Hemoglobin 10.4 gm/dL (13.0-17.0); Mean Corpuscular HGB Conc 31.3 % (32.0-36.0); Mean Corpuscular Hemoglobin 23.4 pg (27.0-34.0); Mean Corpuscular Volume 74.6 fL (80.0-100.0); Mean Platelet Volume 8.7 fL (7.0-11.0); Platelet Count 250 th/mm3 (150-450); Red Blood Count 4.44 mil/mm3 (4.50-5.90); Red Cell Distribution Width 19.1 % (11.6-17.2); White Blood Count 9.2 th/mm3 (4.0-11.0)
[2018-02-11] MEDS ORDERED: Metoprolol Tartrate 25 MG Tablet PO SCH (07:31)
[2018-02-11] MEDS ORDERED: Chlorhexidine Gluconate 2% 1 Pack (2 Cloths) TOPICAL SCH (07:31)
[2018-02-11 07:48] LABS: Calcium 8.6 mg/dL (8.5-10.1); Carbon Dioxide 22.9 meq/L (21.0-32.0); Potassium 4.3 meq/L (3.5-5.1)
[2018-02-11] MEDS ORDERED: Sodium Chlor 0.9% Inj 500 ML IV.SIG SCH (08:00)
--- NOTE | 2018-02-11 08:00 | P.CONOP ---
[facility] Orthopedics Consult Note - [facility] Consult date: 02/10/18 Consult reason: joint pain, other (infected hardware) Chief complaint: POSSIBLE SEPTIC KNEE Narrative: 67 year old male who sustained an open tibial plateau fracture in August 2017 treated with ORIF. He has had issues with infection of the area, completing a 6 week course of IV Vanco about 2 months ago. Was doing alright until he started weightbearing a week ago and noted more pain. He then began to note drainage from a scab that had popped off his incision last Friday. By Friday he states there was copious amounts of drainage coming out and he had a fever of 102 at home. He states he's been taking OTC medications and has not had fevers since. Review of Systems All other systems reviewed negative except as stated in HPI Constitutional: Reports fatigue, Reports fever(s), Denies chills Musculoskeletal: Reports joint pain PMFSH - History History Provided By: Patient - Medical History Medical History: Medical History (Last Reviewed 02/11/18 @ 07:53 by Ragini Day MD) Tibial plateau fracture, right (Acute) Bladder cancer COPD (chronic obstructive pulmonary disease) Cellulitis of right lower extremity Diabetes Hyperlipidemia associated with type 2 diabetes mellitus Hypertension Ischemic cardiomyopathy Myocardial infarction Tibial plateau fracture - Surgical History Surgical History: Surgical History (Last Reviewed 02/11/18 @ 07:53 by Ragini Day MD) H/O cardiac catheterization History of open reduction and internal fixation (ORIF) procedure - Family History Family History: Family History (Last Reviewed 02/11/18 @ 07:53 by Ragini Day MD) Father Pancreatic cancer Brother Coronary artery disease - Tobacco History Second Hand Smoke Exposure: No Tobacco Use In Past 30 Days: Yes Smoking Status: Current every day smoker Tobacco Type: Cigars - Alcohol History How Often Do You Have a Drink Containing Alcohol: Monthly or less - Substance Use History Substance History: No History of Abuse - Travel History Recent Travel in the [place] Within the Last 8 Weeks: No Recent Travel Out of the Country Within the Last 8 Weeks: No - Immunization History Tetanus Immunization: <5 Years Hx Influenza Vaccine This Season: No Medications and Allergies Active Medications: Active Medications Acetaminophen (Tylenol) 650 mg PO Q4H PRN PRN Reason: Temp > 100.4 Hydrocodone Bitart/Acetaminophen ([place] 5/325) 1 tab PO Q4H PRN PRN Reason: pain > 4 Al Hydroxide/Mg Hydroxide (Milk Of Magnesia Liq) 30 ml PO Q12H PRN PRN Reason: Mild Constipation Amlodipine Besylate (Norvasc) 10 mg PO DAILY [facility] Atorvastatin Calcium (Lipitor) 40 mg PO HS [facility] Last Admin: 02/10/18 21:51 Dose: 40 mg Bisacodyl (Dulcolax Supp) 10 mg RECTAL DAILY PRN PRN Reason: SEVERE CONSITIPATION Carvedilol (Coreg) 3.125 mg PO BID [facility] Last Admin: 02/10/18 21:51 Dose: 3.125 mg Chlordiazepoxide (Librium) 5 mg PO DAILY [facility] Chlorhexidine Gluconate (Chlorhexidine 2% Cloth) 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 [facility] Stop: 02/12/18 07:30 Citalopram Hydrobromide (Celexa) 40 mg PO DAILY [facility] Dextrose (D50w Vial) 50 ml IV.PUSH UNSCH PRN PRN Reason: PER HYPOGLYCEMIA PROTOCOL Finasteride (Proscar) 5 mg PO HS [facility] Last Admin: 02/10/18 21:51 Dose: 5 mg Furosemide (Lasix) 40 mg PO DAILY [facility] Gabapentin (Neurontin) 300 mg PO Q8HR [facility] Last Admin: 02/11/18 05:38 Dose: 300 mg Glucagon (Glucagon Inj) 1 mg OTHER PRN PRN PRN Reason: for Hypoglycemia Protocol Vancomycin HCl 1,000 mg/ (Sodium Chloride) 250 mls @ 250 mls/hr IV.SIG Q12H [facility] Last Infusion: 02/11/18 05:38 Dose: Infused Lactated Ringer's (Lr 1000 Ml Inj) 1,000 mls @ 30 mls/hr IV.SIG .Q24H [facility] Stop: 02/12/18 07:44 Sodium Chloride (Ns Inj) 500 mls @ 30 mls/hr IV.SIG .Q10H [facility] Stop: 02/12/18 07:59 Insulin Aspart (Novolog Insulin Correctional Sugar Inj) 0 unit SQ ACHS [facility]; Protocol Last Admin: 02/10/18 22:00 Dose: Not Given Lactulose (Lactulose Liq) 30 ml PO DAILY PRN PRN Reason: SEVERE CONSITIPATION Lisinopril (Prinivil) 10 mg PO DAILY [facility] Metoprolol Tartrate (Lopressor) 25 mg PO ADULT [employer]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 [facility] Stop: 02/12/18 07:30 Ondansetron HCl (Zofran Inj) 4 mg IV.PUSH Q6H PRN PRN Reason: NAUSEA OR VOMITING Pramipexole Dihydrochloride (Mirapex) 0.75 mg PO HS [facility] Last Admin: 02/10/18 21:51 Dose: 0.75 mg Senna/Docusate Sodium (Ml-Colace) 1 tab PO BID [facility] Last Admin: 02/10/18 21:50 Dose: Not Given Sennosides (Senokot) 17.2 mg PO Q12H PRN PRN Reason: Moderate Constipation Sodium Chloride (Ns Flush) 2 ml IV.FLUSH PRN PRN PRN Reason: FLUSH AFTER USING IV ACCESS Spironolactone (Aldactone) 25 mg PO DAILY [facility] Tamsulosin HCl (Flomax) 0.4 mg PO HS [facility] Last Admin: 02/10/18 21:50 Dose: 0.4 mg Temazepam (Restoril) 15 mg PO HS PRN PRN Reason: INSOMNIA Tiotropium [place] (Spiriva 18 Mcg Inh) 18 mcg INH DAILY [facility] Vitamin D (Vitamin D3) 2,000 unit PO DAILY [facility] Allergies Allergy/AdvReac Type Severity Reaction Status Date / Time penicillin G Allergy Unknown childhood Verified 12/05/17 10:59 reaction Penicillins Allergy Unknown childhood Verified 12/05/17 08:09 reaction Home Medications Medication Instructions Recorded Confirmed Type amlodipine [Norvasc] 10 mg PO DAILY 12/04/17 02/10/18 History aspirin 81 mg PO QPM 12/04/17 02/10/18 History atorvastatin [Lipitor] 40 mg PO HS 12/04/17 02/10/18 History carvedilol [Coreg] 3.125 mg PO BID 12/04/17 02/10/18 History chlordiazepoxide HCl 5 mg PO DAILY 12/04/17 02/10/18 History cholecalciferol (vitamin D3) 2,000 unit PO DAILY 12/04/17 02/10/18 History [Vitamin D3] citalopram [Celexa] 40 mg PO DAILY 12/04/17 02/10/18 History clopidogrel [Plavix] 75 mg PO DAILY 12/04/17 02/10/18 History coQ10 (ubiquinol) 200 mg PO DAILY 12/04/17 02/10/18 History ergocalciferol (vitamin D2) 50,000 unit PO QWEEK 12/04/17 02/10/18 History [Vitamin D2] fentanyl 1 patch TRANSDERMAL Q72H 12/04/17 02/10/18 History finasteride 5 mg PO HS 12/04/17 02/10/18 History furosemide [Lasix] 40 mg PO DAILY 12/04/17 02/10/18 History gabapentin 300 mg PO Q8HR 12/04/17 02/10/18 History hydrocodone-acetaminophen [[place]] 1 tab PO Q4-6H PRN 12/04/17 02/10/18 History insulin glargine [Lantus U-100 100 unit SUB-Q QPM 12/04/17 02/10/18 History Insulin] insulin lispro [Humalog U-100 5 - 10 units SUB-Q UD 12/04/17 02/10/18 History Insulin] ipratropium-albuterol 3 ml INHALATION Q6-8H PRN 12/04/17 02/10/18 History loratadine [Claritin] 10 mg PO DAILY 12/04/17 02/10/18 History metformin [Glucophage] 1,000 mg PO BID 12/04/17 02/10/18 History methocarbamol [Robaxin] 500 mg PO Q8HR 12/04/17 02/10/18 History nutytqgi-oei-OW-lycopen-lutein 1 tab PO DAILY 12/04/17 02/10/18 History [Centrum Silver] pramipexole 0.75 mg PO HS 12/04/17 02/10/18 History spironolactone [Aldactone] 25 mg PO DAILY 12/04/17 02/10/18 History tamsulosin 0.4 mg PO HS 12/04/17 02/10/18 History tiotropium bromide [Spiriva with 1 cap INHALATION DAILY 12/04/17 02/10/18 History HandiHaler] Exam Vital signs: Vital Signs 02/10/18 12:52 02/10/18 14:37 02/10/18 14:41 Temperature 97.9 F Pulse Rate 62 61 Respiratory Rate 16 18 Blood Pressure 114/56 L 134/84 Pulse Oximetry 97 98 98 02/10/18 18:50 02/10/18 21:48 02/11/18 00:00 Temperature 98.0 F 98.1 F Pulse Rate 65 64 65 Respiratory Rate 17 16 18 Blood Pressure 146/75 H 117/56 L 97/51 L Pulse Oximetry 100 96 93 L 02/11/18 04:00 02/11/18 07:00 02/11/18 07:43 Temperature 98.3 F Pulse Rate 72 Respiratory Rate 18 12 Blood Pressure 111/55 L Pulse Oximetry 96 95 02/11/18 07:45 Temperature 98.2 F Pulse Rate 63 Respiratory Rate 16 Blood Pressure 116/56 L Pulse Oximetry 95 Intake & Output 02/10/18 02/11/18 02/11/18 18:59 06:59 18:59 Intake Total 1350 / 1350 350 / 350 Balance 1350 / 1350 350 / 350 Weight 89.63 kg 90.9 kg Intake: IV 1350 / 1350 350 / 350 NS Inj 1,000 ML @ Wide Open IV. 1000 / 1000 SIG BOLUS ONE Rx#:[id number] Vancomycin Inj 1,000 MG In NS 250 / 250 250 / 250 Inj 250 ML @ 250 mls/hr IV.SIG Q12H [facility] Rx#:[id number] Flagyl 500 MG Inj 100 ML @ 100 100 / 100 mls/hr IV.SIG ONCE ONE Rx#: [id number] Other: # Voids 2 Date of Last Bowel Movement 02/09/18 02/08/18 Weight On Admission 90.9 kg - Constitutional no acute distress - Routine HEENT Exam Head: Present: normocephalic, atraumatic - Routine Neck Exam Present: supple - Routine Cardiovascular Exam Present: RRR - Detailed Lower Extremity Exam Knee: Left joint effusion (trace), Left swelling, Left tenderness, Left wound, Left erythema, Left full ROM, Left intact knee extension - Routine Skin Exam Comments: Anterolateral incision noted left knee with some erythema surrounding the distal portion with active drainage. Results - Labs Result Diagrams: 02/11/18 05:58 02/11/18 05:58 Labs: Laboratory Results - last 24 hr 02/10/18 02/10/18 02/10/18 14:45 14:45 14:45 WBC 12.9 H RBC 4.74 Hgb 11.4 L Hct 35.4 L MCV 74.5 L MCH 24.0 L MCHC 32.1 RDW 19.4 H Plt Count 280 MPV 8.6 Neut % (Auto) 71.1 H Lymph % (Auto) 16.6 [place] % (Auto) 10.2 H Eos % (Auto) 1.2 Baso % (Auto) 0.9 Neut # (Auto) 9.2 H Lymph # (Auto) 2.1 [place] # (Auto) 1.3 H Eos # (Auto) 0.2 Baso # (Auto) 0.1 WBC Differential . Differential Comment Auto diff final ESR PT 10.3 INR 1.0 Sodium 135 L Potassium 5.0 Chloride 103 Carbon Dioxide 24.8 Anion Gap 7 BUN 20 H Creatinine 1.26 Estimated GFR 57 L POC Glucose Random Glucose 122 H Lactic Acid Calcium 8.9 Total Bilirubin 0.6 AST 42 H ALT 12 Alkaline Phosphatase 109 C-Reactive Protein Total Protein 8.4 H Albumin 3.5 02/10/18 02/10/18 02/10/18 14:45 14:45 14:45 WBC RBC Hgb Hct MCV MCH MCHC RDW Plt Count MPV Neut % (Auto) Lymph % (Auto) [place] % (Auto) Eos % (Auto) Baso % (Auto) Neut # (Auto) Lymph # (Auto) [place] # (Auto) Eos # (Auto) Baso # (Auto) WBC Differential Differential Comment ESR 35 H PT INR Sodium Potassium Chloride Carbon Dioxide Anion Gap BUN Creatinine Estimated GFR POC Glucose Random Glucose Lactic Acid 1.3 Calcium Total Bilirubin AST ALT Alkaline Phosphatase C-Reactive Protein 14.00 H Total Protein Albumin 02/10/18 02/10/18 02/11/18 21:55 23:52 05:58 WBC 9.2 RBC 4.44 L Hgb 10.4 L Hct 33.1 L MCV 74.6 L MCH 23.4 L MCHC 31.3 L RDW 19.1 H Plt Count 250 MPV 8.7 Neut % (Auto) Lymph % (Auto) [place] % (Auto) Eos % (Auto) Baso % (Auto) Neut # (Auto) Lymph # (Auto) [place] # (Auto) Eos # (Auto) Baso # (Auto) WBC Differential Differential Comment ESR PT INR Sodium Potassium Chloride Carbon Dioxide Anion Gap BUN Creatinine Estimated GFR POC Glucose 204 H 152 H Random Glucose Lactic Acid Calcium Total Bilirubin AST ALT Alkaline Phosphatase C-Reactive Protein Total Protein Albumin 02/11/18 05:58 WBC RBC Hgb Hct MCV MCH MCHC RDW Plt Count MPV Neut % (Auto) Lymph % (Auto) [place] % (Auto) Eos % (Auto) Baso % (Auto) Neut # (Auto) Lymph # (Auto) [place] # (Auto) Eos # (Auto) Baso # (Auto) WBC Differential Differential Comment ESR PT INR Sodium 138 Potassium 4.3 Chloride 105 Carbon Dioxide 22.9 Anion Gap 10 BUN 17 Creatinine 0.97 Estimated GFR 77 L POC Glucose Random Glucose 115 H Lactic Acid Calcium 8.6 Total Bilirubin AST ALT Alkaline Phosphatase C-Reactive Protein Total Protein Albumin - Diagnostic results Imaging: Impressions Chest X-Ray 02/10/18 14:41 CONCLUSION: 1. Cardiomegaly. 2. Minimal increased interstitial markings bilaterally consistent with possible minimal congestion. Clinical correlation is recommended. Knee CT 02/10/18 14:41 CONCLUSION: 1. Healing comminuted fracture deformity of the proximal tibia status post open rigid internal fixation with lateral screw plate fixation device in place. There is diffuse patchy sclerosis and lucency with indistinct fracture lines. The findings could indicate infection. 2. Healing comminuted fracture of the proximal fibula. 3. Cirrhosis as well as numerous small patchy lucencies in the distal femur and patella. 4. Joint effusion and extensive soft tissue swelling. Tibia/Fibula X-Ray 02/10/18 14:41 CONCLUSION: 1. Status post open rigid internal fixation of a proximal tibial fracture with patchy sclerosis and lucency which is nonspecific. 2. Deformity of the proximal fibula as well. 3. Patchy sclerosis involving the distal femur. Knee x-ray: report reviewed, image reviewed Knee CT: report reviewed, image reviewed (hardware in place with lucency and sclerosis concerning for chronic infection) Assessment and Plan - Problem List (1) Wound infection after surgery Code(s): T81.49XA - Infection following a procedure, other surgical site, initial encounter Status: Acute (2) Tibial plateau fracture, right Code(s): S82.141A - Displaced bicondylar fracture of right tibia, initial encounter for closed fracture Status: Chronic Qualifiers: Encounter type: sequela Fracture type: open Open fracture type: open type I or II Qualified Code(s): S82.141S - Displaced bicondylar fracture of right tibia, sequela - Assessment and Plan 67 year old male who is about 6 months out from ORIF of his left open tibial plateau fracture now presenting with acute on chronic infection. Plan: Discussed with Dr. Garcia. Will likely require I&D and possible hardware removal. Would advise holding antibiotic for surgical culture unless patient becomes septic.
[2018-02-11] MEDS: Furosemide 40 MG Tablet PO SCH (08:19)
[2018-02-11] MEDS: Senna/Docusate Sodium 8.6/50 MG Tablet PO SCH ×2 (08:19→21:53)
[2018-02-11] MEDS: Insulin NovoLOG Aspart Correctional Sugar Inj SQ SCH ×4 (08:19→21:52)
[2018-02-11] MEDS: Spironolactone 25 MG Tablet PO SCH (08:19)
[2018-02-11] MEDS: amLODIPine 10 MG Tablet PO SCH (08:19)
[2018-02-11] MEDS: Lisinopril 10 MG Tablet PO SCH (08:19)
[2018-02-11] MEDS: Tiotropium Bromide 18 MCG/ACT Inhaler INH SCH (08:20)
--- NOTE | 2018-02-11 08:55 | P.PN ---
Subjective Interval history: Follow-up septic left knee with hardware February 11, 2018-patient seen and examined, currently n.p.o. pending trip to the operating room for I&D with possible hardware removal. Afebrile. Denies any significant pain to the left knee. Physical Exam Vital signs: Vital Signs 02/10/18 12:52 02/10/18 14:37 02/10/18 14:41 Temperature 97.9 F Pulse Rate 62 61 Respiratory Rate 16 18 Blood Pressure 114/56 L 134/84 Pulse Oximetry 97 98 98 02/10/18 18:50 02/10/18 21:48 02/11/18 00:00 Temperature 98.0 F 98.1 F Pulse Rate 65 64 65 Respiratory Rate 17 16 18 Blood Pressure 146/75 H 117/56 L 97/51 L Pulse Oximetry 100 96 93 L 02/11/18 04:00 02/11/18 07:00 02/11/18 07:43 Temperature 98.3 F Pulse Rate 72 Respiratory Rate 18 12 Blood Pressure 111/55 L Pulse Oximetry 96 95 02/11/18 07:45 02/11/18 08:00 02/11/18 08:48 Temperature 98.2 F 98.2 F 98.2 F Pulse Rate 63 63 63 Respiratory Rate 16 16 Blood Pressure 116/56 L 116/56 L 116/56 L Pulse Oximetry 95 95 95 Intake & Output 02/10/18 02/11/18 02/11/18 18:59 06:59 18:59 Intake Total 1350 / 1350 350 / 350 Balance 1350 / 1350 350 / 350 Weight 89.63 kg 90.9 kg Intake: IV 1350 / 1350 350 / 350 NS Inj 1,000 ML @ Wide Open IV. 1000 / 1000 SIG BOLUS ONE Rx#:[id number] Vancomycin Inj 1,000 MG In NS 250 / 250 250 / 250 Inj 250 ML @ 250 mls/hr IV.SIG Q12H [facility] Rx#:[id number] Flagyl 500 MG Inj 100 ML @ 100 100 / 100 mls/hr IV.SIG ONCE ONE Rx#: [id number] Other: # Voids 2 Date of Last Bowel Movement 02/09/18 02/08/18 Weight On Admission 90.9 kg Narrative: GENERAL: NAD SKIN: Warm and dry. HEAD: Normocephalic. EYES: No scleral icterus. No injection or drainage. NECK: Supple, trachea midline. No JVD or lymphadenopathy. CARDIOVASCULAR: Regular rate and rhythm without murmurs, gallops, or rubs. RESPIRATORY: Breath sounds equal bilaterally. No accessory muscle use. GASTROINTESTINAL: Abdomen soft, non-tender, nondistended. MUSCULOSKELETAL: No cyanosis, or edema. left knee with drainage, surrounding redness. Tender to palpation and warm to touch BACK: Nontender without obvious deformity. No CVA tenderness. Results - Labs CBC & Chem 7: 02/11/18 05:58 02/11/18 05:58 Laboratory Results - last 24 hr 02/10/18 02/10/18 02/10/18 14:45 14:45 14:45 WBC 12.9 H RBC 4.74 Hgb 11.4 L Hct 35.4 L MCV 74.5 L MCH 24.0 L MCHC 32.1 RDW 19.4 H Plt Count 280 MPV 8.6 Neut % (Auto) 71.1 H Lymph % (Auto) 16.6 [place] % (Auto) 10.2 H Eos % (Auto) 1.2 Baso % (Auto) 0.9 Neut # (Auto) 9.2 H Lymph # (Auto) 2.1 [place] # (Auto) 1.3 H Eos # (Auto) 0.2 Baso # (Auto) 0.1 WBC Differential . Differential Comment Auto diff final ESR PT 10.3 INR 1.0 Sodium 135 L Potassium 5.0 Chloride 103 Carbon Dioxide 24.8 Anion Gap 7 BUN 20 H Creatinine 1.26 Estimated GFR 57 L POC Glucose Random Glucose 122 H Lactic Acid Calcium 8.9 Total Bilirubin 0.6 AST 42 H ALT 12 Alkaline Phosphatase 109 C-Reactive Protein Total Protein 8.4 H Albumin 3.5 02/10/18 02/10/18 02/10/18 14:45 14:45 14:45 WBC RBC Hgb Hct MCV MCH MCHC RDW Plt Count MPV Neut % (Auto) Lymph % (Auto) [place] % (Auto) Eos % (Auto) Baso % (Auto) Neut # (Auto) Lymph # (Auto) [place] # (Auto) Eos # (Auto) Baso # (Auto) WBC Differential Differential Comment ESR 35 H PT INR Sodium Potassium Chloride Carbon Dioxide Anion Gap BUN Creatinine Estimated GFR POC Glucose Random Glucose Lactic Acid 1.3 Calcium Total Bilirubin AST ALT Alkaline Phosphatase C-Reactive Protein 14.00 H Total Protein Albumin 02/10/18 02/10/18 02/11/18 21:55 23:52 05:58 WBC 9.2 RBC 4.44 L Hgb 10.4 L Hct 33.1 L MCV 74.6 L MCH 23.4 L MCHC 31.3 L RDW 19.1 H Plt Count 250 MPV 8.7 Neut % (Auto) Lymph % (Auto) [place] % (Auto) Eos % (Auto) Baso % (Auto) Neut # (Auto) Lymph # (Auto) [place] # (Auto) Eos # (Auto) Baso # (Auto) WBC Differential Differential Comment ESR PT INR Sodium Potassium Chloride Carbon Dioxide Anion Gap BUN Creatinine Estimated GFR POC Glucose 204 H 152 H Random Glucose Lactic Acid Calcium Total Bilirubin AST ALT Alkaline Phosphatase C-Reactive Protein Total Protein Albumin 02/11/18 02/11/18 05:58 07:35 WBC RBC Hgb Hct MCV MCH MCHC RDW Plt Count MPV Neut % (Auto) Lymph % (Auto) [place] % (Auto) Eos % (Auto) Baso % (Auto) Neut # (Auto) Lymph # (Auto) [place] # (Auto) Eos # (Auto) Baso # (Auto) WBC Differential Differential Comment ESR PT INR Sodium 138 Potassium 4.3 Chloride 105 Carbon Dioxide 22.9 Anion Gap 10 BUN 17 Creatinine 0.97 Estimated GFR 77 L POC Glucose 136 H Random Glucose 115 H Lactic Acid Calcium 8.6 Total Bilirubin AST ALT Alkaline Phosphatase C-Reactive Protein Total Protein Albumin Microbiology 02/10/18 14:40 Wound - Leg Gram Stain - Final - Imaging Impressions Chest X-Ray 02/10/18 14:41 CONCLUSION: 1. Cardiomegaly. 2. Minimal increased interstitial markings bilaterally consistent with possible minimal congestion. Clinical correlation is recommended. Knee CT 02/10/18 14:41 CONCLUSION: 1. Healing comminuted fracture deformity of the proximal tibia status post open rigid internal fixation with lateral screw plate fixation device in place. There is diffuse patchy sclerosis and lucency with indistinct fracture lines. The findings could indicate infection. 2. Healing comminuted fracture of the proximal fibula. 3. Cirrhosis as well as numerous small patchy lucencies in the distal femur and patella. 4. Joint effusion and extensive soft tissue swelling. Tibia/Fibula X-Ray 02/10/18 14:41 CONCLUSION: 1. Status post open rigid internal fixation of a proximal tibial fracture with patchy sclerosis and lucency which is nonspecific. 2. Deformity of the proximal fibula as well. 3. Patchy sclerosis involving the distal femur. Assessment and Plan - Assessment (1) Wound infection after surgery Code(s): T81.49XA - Infection following a procedure, other surgical site, initial encounter Status: Acute - Plan 67-year-old man with 1. Possible septic L knee with hardware in place -Currently on vancomycin pending evaluation from infectious disease specialist. Monitor culture -Appreciate input from orthopedic surgery, and plan for I&D with possible hardware removal -PT consult postprocedure - [place] PRN 2. CAD with multiple stents - Holding home ASA and Plavix for possible ortho surgery - Continue carvedilol and lisinopril 3. COPD - Not in acute exacerbation - Supplemental O2 PRN, DuoNeb as needed 4. CHF - Continue home Lasix, carvedilol, and spironolactone 5. DM - Hold home metformin and Levemir since patient going to be NPO after midnight. Resume Levemir after procedure - SSI with AccuChecks per protocol 6. HLD -Continue home statin 7. HTN -Continue home carvedilol, amlodipine, and lisinopril 8. BPH - Continue home Flomax 9. Depression - Continue home meds DVT prophylaxis: hold chemical anticoagulation for possible surgery
[2018-02-11] MEDS ORDERED: Tobramycin Sulfate 1,200 MG Vial (for ortho/sterile core) OTHER ONE (10:03)
[2018-02-11] MEDS ORDERED: Lidocaine PF 1% Inj 5 ML Syringe OTHER ONE (10:45)
[2018-02-11] MEDS ORDERED: Morphine Inj 4 MG/ML Vial IV.PUSH PRN (12:10)
[2018-02-11] MEDS ORDERED: Post-op Orders (for Pharmacy) OTHER STA (12:10)
--- NOTE | 2018-02-11 12:18 | P.OP ---
- Preoperative Diagnosis (1) Wound infection after surgery (2) Tibial plateau fracture, right Comment: .ORIF Date of procedure: 02/11/18 Procedure: Removal of deep hardware, irrigation and debridement of right tibia, placement of antibiotic beads. Anesthesia: GETA Surgeon: Delvis Curtis MD Plant Puller: MICHELLE Mcmullen PA-C The surgical procedure was assisted by my physician orthotics prosthetics assistant. My P.A. presence was necessary throughout this case for the manipulation and positioning of the surgical extremity. My P.A. was assisting me throughout the duration of this procedure. The skill set of a physician orthotics prosthetics assistant was medically necessary to complete this procedure. During the surgical case the surgical services director was working at the back table and the physician orthotics prosthetics assistant was directly assisting me. Operation and Findings: Jose Carlos is well-known to me from previous right tibial plateau fracture treated with open reduction internal fixation. He developed a wound and subsequent infection. He has had continued drainage. Informed consent was obtained and OpSite was marked. He is brought the operating room. He was given IV sedation and general anesthesia. Timeout procedure was performed. Right leg was prepped with alcohol followed Hibiclens and draped in the usual sterile fashion. Procedure began with a 5 inch incision through previous scar. Subcu tissue was dissected with Bovie. Iliotibial band was opened. There was some purulent fluid present. This fluid and tissue were obtained for cultures. At this point attention was turned towards hardware removal. Screws were loosened. Screws were now removed. The plate was elevated and removed. Attention was now turned towards irrigation debridement of the tibia. Curettes and rongeurs were used to debride bone. Multiple bone fragments were excised. A TPS bur was also used to debride the tibial cortex. After thorough debridement the wound was thoroughly irrigated with pulsatile lavage. Next attention was turned towards antibiotic beads. 10 cc of stimulant bone cement was mixed with 2 g of vancomycin. A large beads were made. Once the beads were set the beads were packed into the defect of the proximal tibia. At this point the incision was closed with 0 PDS, 3-0 PDS, and 3-0 nylon. Sterile dressings were applied. Patient was awakened and transferred to recovery room.
[2018-02-11] MEDS ORDERED: fentaNYL Citrate Inj 100 MCG/2 ML Ampul ONE (12:22)
[2018-02-11] MEDS ORDERED: Ketorolac Inj 30 MG/ML (IVP) Vial ONE (12:27)
--- NOTE | 2018-02-11 13:48 | XR ---
EXAM DATE: 02/11/2018 12:00 AM EDT AGE/SEX: 67 years / Male INDICATIONS: Removal of hardware in right tibia. CLINICAL DATA: This is the patient's subsequent encounter. Patient reports that signs and symptoms h ave been present for 1 day and indicates a pain score of Nonresponsive. MEDICAL/SURGICAL HISTORY: Non-responsive. Non-responsive. COMPARISON: No prior exams available for comparison. FINDINGS: Antibiotic impregnated beads are seen about the lateral plateau following hardware removal. Bones are osteoporotic. CONCLUSION: Status post hardware removal as described above. Electronically signed by: Nitish Reynolds MD 02/11/2018 1:47 PM EDT
[2018-02-11] MEDS ORDERED: Vancomycin Inj 1,000 MG in Sodium Chlor 0.9% Inj 250 ML IV.SIG SCH (14:00)
--- NOTE | 2018-02-11 14:03 | P.CONID ---
History of Present Illness Service: Infectious Disease Consult date: 02/11/18 Requesting Physician: Mel Catalan Reason for Consult: Evaluation and Mment of Right knee septic joint, prosthetic joint infection Primary Care Provider: No Primary Care Physician Family Provider: No Primary Care Physician History of Present Illness: Mr. Tovar is a 67-year-old male with past medical history significant for coronary artery disease, COPD, congestive heart failure, diabetes. Patient reported a traumatic right tibial plateau fracture in August 2017 and underwent repair by Dr. Garcia. This was complicated by infection in October 2017 requiring a long course of IV vancomycin by Dr. Bynum by psych. Patient reports having a PICC line at that time and being followed by Dr. Plascencia. Patient started weightbearing approximately 6 weeks back. He reports that approximately 5 days prior to admission he started noticing pain around his right knee as well as subsequently malodorous clear discharge from the prior surgical site. On the day of admission patient had a temperature of 103 Fahrenheit. In addition patient started developing nausea, fatigue as well as generalized malaise. He this drainage from the knee started becoming yellow and started draining. On the right leg secondary to severe pain. [place] at home with good relief. He went to his PCP who recommended. Patient has been evaluated by orthopedic Dr. Garcia and underwent irrigation and debridement as well as removal of the hardware and placement of spacer. Drop cultures are pending at the present time. Intra-Op note reports purulent material seen intraoperatively. Patient has had a workup for sepsis all cultures are pending and patient has been started on empiric antibiotics. Review of Systems All other systems reviewed negative except as stated in HPI PMFSH - History History Provided By: Patient - Medical History Medical History: Medical History (Last Reviewed 02/16/18 @ 08:25 by Sushma Crane) Tibial plateau fracture, right (Chronic) Bladder cancer COPD (chronic obstructive pulmonary disease) Cellulitis of right lower extremity Diabetes Hyperlipidemia associated with type 2 diabetes mellitus Hypertension Ischemic cardiomyopathy Myocardial infarction Tibial plateau fracture - Surgical History Surgical History: Surgical History (Last Reviewed 02/16/18 @ 08:25 by Sushma Crane) H/O cardiac catheterization History of open reduction and internal fixation (ORIF) procedure - Family History Family History: Family History (Last Reviewed 02/16/18 @ 08:25 by Sushma Crane) Father Pancreatic cancer Brother Coronary artery disease - Tobacco History Second Hand Smoke Exposure: No Tobacco Use In Past 30 Days: Yes Smoking Status: Current every day smoker Tobacco Type: Cigars - Alcohol History How Often Do You Have a Drink Containing Alcohol: Monthly or less - Substance Use History Substance History: No History of Abuse - Travel History Recent Travel in the [place] Within the Last 8 Weeks: No Recent Travel Out of the Country Within the Last 8 Weeks: No - Immunization History Tetanus Immunization: <5 Years Hx Influenza Vaccine This Season: No Medications and Allergies Active Medications: Active Medications Acetaminophen (Tylenol) 650 mg PO Q4H PRN PRN Reason: Temp > 100.4 Hydrocodone Bitart/Acetaminophen ([place] 5/325) 1 tab PO Q4H PRN PRN Reason: pain > 4 Last Admin: 02/11/18 13:58 Dose: 1 tab Hydrocodone Bitart/Acetaminophen ([place] 10/325) 1 tab PO Q3H PRN PRN Reason: Pain Scale 3-10 Al Hydroxide/Mg Hydroxide (Milk Of Magnesia Liq) 30 ml PO Q12H PRN PRN Reason: Mild Constipation Amlodipine Besylate (Norvasc) 10 mg PO DAILY [facility] Last Admin: 02/11/18 08:19 Dose: Not Given Atorvastatin Calcium (Lipitor) 40 mg PO HS [facility] Last Admin: 02/10/18 21:51 Dose: 40 mg Bisacodyl (Dulcolax Supp) 10 mg RECTAL DAILY PRN PRN Reason: SEVERE CONSITIPATION Calcium/Vitamin D (Oscal With D 250/125 Mg) 1 tab PO TID [facility] Carvedilol (Coreg) 3.125 mg PO BID [facility] Last Admin: 02/11/18 08:18 Dose: 3.125 mg Chlordiazepoxide (Librium) 5 mg PO DAILY [facility] Last Admin: 02/11/18 08:19 Dose: Not Given Chlorhexidine Gluconate (Chlorhexidine 2% Cloth) 3 pack [employer] [facility] Stop: 02/12/18 07:30 Citalopram Hydrobromide (Celexa) 40 mg PO DAILY [facility] Last Admin: 02/11/18 08:18 Dose: 40 mg Dextrose (D50w Vial) 50 ml IV.PUSH UNSCH PRN PRN Reason: PER HYPOGLYCEMIA PROTOCOL Diphenhydramine HCl (Benadryl) 25 mg PO Q6H PRN PRN Reason: ITCHING Enoxaparin Sodium (Lovenox Inj) 30 mg SQ Q24H [facility] Ergocalciferol (Vitamin D2) 50,000 unit PO ONCE ONE Stop: 02/11/18 12:11 Finasteride (Proscar) 5 mg PO HS [facility] Last Admin: 02/10/18 21:51 Dose: 5 mg Furosemide (Lasix) 40 mg PO DAILY [facility] Last Admin: 02/11/18 08:19 Dose: Not Given Gabapentin (Neurontin) 300 mg PO Q8HR [facility] Last Admin: 02/11/18 05:38 Dose: 300 mg Glucagon (Glucagon Inj) 1 mg OTHER PRN PRN PRN Reason: for Hypoglycemia Protocol Lactated Ringer's (Lr 1000 Ml Inj) 1,000 mls @ 30 mls/hr IV.SIG .Q24H [facility] Stop: 02/12/18 07:44 Last Admin: 02/11/18 08:20 Dose: 30 mls/hr Sodium Chloride (Ns Inj) 500 mls @ 30 mls/hr IV.SIG .Q10H [facility] Stop: 02/12/18 07:59 Cefazolin Sodium 2,000 mg/ (Sodium Chloride) 100 mls @ 200 mls/hr IV.SIG Q8H [facility] Stop: 02/13/18 19:59 Lactated Ringer's (Lr 1000 Ml Inj) 1,000 mls @ 80 mls/hr IV.CONT .[id number] [facility] Vancomycin HCl 1,000 mg/ (Sodium Chloride) 250 mls @ 200 mls/hr IV.SIG Q12H [facility] Insulin Aspart (Novolog Insulin Correctional Sugar Inj) 0 unit SQ ACHS [facility]; Protocol Last Admin: 02/11/18 13:58 Dose: Not Given Ketorolac Tromethamine (Toradol Inj) 15 mg IV.PUSH Q8H [facility] Stop: 02/12/18 13:01 Lactulose (Lactulose Liq) 30 ml PO DAILY PRN PRN Reason: SEVERE CONSITIPATION Lisinopril (Prinivil) 10 mg PO DAILY [facility] Last Admin: 02/11/18 08:19 Dose: Not Given Metoprolol Tartrate (Lopressor) 25 mg PO [employer] [facility] Stop: 02/12/18 07:30 Miscellaneous Information (Misc Post-Op Orders (For Pharmacy)) 0 each OTHER STAT STA Stop: 02/11/18 12:11 Morphine Sulfate (Morphine Inj) 4 mg IV.PUSH Q3H PRN PRN Reason: BREAKTHROUGH PAIN Ondansetron HCl (Zofran Inj) 4 mg IV.PUSH Q6H PRN PRN Reason: NAUSEA OR VOMITING Ondansetron HCl (Zofran Odt) 4 mg PO Q6H PRN PRN Reason: NAUSEA OR VOMITING Ondansetron HCl (Zofran Inj) 4 mg IV.PUSH Q6H PRN PRN Reason: NAUSEA Pramipexole Dihydrochloride (Mirapex) 0.75 mg PO [facility] Last Admin: 02/10/18 21:51 Dose: 0.75 mg Senna/Docusate Sodium (Ml-Colace) 1 tab PO BID [facility] Last Admin: 02/11/18 08:19 Dose: Not Given Sennosides (Senokot) 17.2 mg PO Q12H PRN PRN Reason: Moderate Constipation Sodium Chloride (Ns Flush) 2 ml IV.FLUSH PRN PRN PRN Reason: FLUSH AFTER USING IV ACCESS Sodium Chloride (Ns Flush) 2 ml IV.FLUSH BID [facility] Sodium Chloride (Ns Flush) 2 ml IV.FLUSH PRN PRN PRN Reason: FLUSH AFTER USING IV ACCESS Spironolactone (Aldactone) 25 mg PO DAILY [facility] Last Admin: 02/11/18 08:19 Dose: Not Given Tamsulosin HCl (Flomax) 0.4 mg PO HS [facility] Last Admin: 02/10/18 21:50 Dose: 0.4 mg Temazepam (Restoril) 15 mg PO HS PRN PRN Reason: INSOMNIA Tiotropium [place] (Spiriva 18 Mcg Inh) 18 mcg INH DAILY [facility] Last Admin: 02/11/18 08:20 Dose: 18 mcg Vitamin D (Vitamin D3) 2,000 unit PO DAILY [facility] Last Admin: 02/11/18 08:20 Dose: Not Given Vitamin D (Vitamin D3) 5,000 unit PO DAILY [facility] Allergies Allergy/AdvReac Type Severity Reaction Status Date / Time penicillin G Allergy Unknown childhood Verified 12/05/17 10:59 reaction Penicillins Allergy Unknown childhood Verified 12/05/17 08:09 reaction Home Medications Medication Instructions Recorded Confirmed Type aspirin 81 mg PO QPM 12/04/17 02/10/18 History atorvastatin [Lipitor] 40 mg PO HS 12/04/17 02/10/18 History carvedilol [Coreg] 3.125 mg PO BID 12/04/17 02/10/18 History chlordiazepoxide HCl 5 mg PO DAILY 12/04/17 02/10/18 History cholecalciferol (vitamin D3) 2,000 unit PO DAILY 12/04/17 02/10/18 History [Vitamin D3] citalopram [Celexa] 40 mg PO DAILY 12/04/17 02/10/18 History clopidogrel [Plavix] 75 mg PO DAILY 12/04/17 02/10/18 History coQ10 (ubiquinol) 200 mg PO DAILY 12/04/17 02/10/18 History ergocalciferol (vitamin D2) 50,000 unit PO QWEEK 12/04/17 02/10/18 History [Vitamin D2] fentanyl 1 patch TRANSDERMAL Q72H 12/04/17 02/10/18 History finasteride 5 mg PO HS 12/04/17 02/10/18 History furosemide [Lasix] 40 mg PO DAILY 12/04/17 02/10/18 History gabapentin 300 mg PO Q8HR 12/04/17 02/10/18 History hydrocodone-acetaminophen [[place]] 1 tab PO Q4-6H PRN 12/04/17 02/10/18 History insulin glargine [Lantus U-100 100 unit SUB-Q QPM 12/04/17 02/10/18 History Insulin] insulin lispro [Humalog U-100 5 - 10 units SUB-Q UD 12/04/17 02/10/18 History Insulin] ipratropium-albuterol 3 ml INHALATION Q6-8H PRN 12/04/17 02/10/18 History loratadine [Claritin] 10 mg PO DAILY 12/04/17 02/10/18 History metformin [Glucophage] 1,000 mg PO BID 12/04/17 02/10/18 History tymgxsfd-zot-UL-lycopen-lutein 1 tab PO DAILY 12/04/17 02/10/18 History [Centrum Silver] pramipexole 0.75 mg PO HS 12/04/17 02/10/18 History spironolactone [Aldactone] 25 mg PO DAILY 12/04/17 02/10/18 History tamsulosin 0.4 mg PO HS 12/04/17 02/10/18 History tiotropium bromide [Spiriva with 1 cap INHALATION DAILY 12/04/17 02/10/18 History HandiHaler] Exam Vital signs: Vital Signs 02/10/18 14:37 02/10/18 14:41 02/10/18 18:50 Temperature Pulse Rate 61 65 Respiratory Rate 18 17 Blood Pressure 134/84 146/75 H Pulse Oximetry 98 98 100 02/10/18 21:48 02/11/18 00:00 02/11/18 04:00 Temperature 98.0 F 98.1 F 98.3 F Pulse Rate 64 65 72 Respiratory Rate 16 18 18 Blood Pressure 117/56 L 97/51 L 111/55 L Pulse Oximetry 96 93 L 96 02/11/18 07:00 02/11/18 07:43 02/11/18 07:45 Temperature 98.2 F Pulse Rate 63 Respiratory Rate 12 16 Blood Pressure 116/56 L Pulse Oximetry 95 95 02/11/18 08:00 02/11/18 08:48 02/11/18 12:15 Temperature 98.2 F 98.2 F 97.6 F Pulse Rate 63 63 70 Respiratory Rate 16 16 Blood Pressure 116/56 L 116/56 L 132/66 Pulse Oximetry 95 95 93 L Intake & Output 02/10/18 02/11/18 02/11/18 18:59 06:59 18:59 Intake Total 1350 / 1350 350 / 350 500 / 500 Output Total 50 / 50 Balance 1350 / 1350 350 / 350 450 / 450 Weight 89.63 kg 90.9 kg Intake: IV 1350 / 1350 350 / 350 NS Inj 1,000 ML @ Wide Open IV. 1000 / 1000 [facility] Rx#:[id number] Vancomycin Inj 1,000 MG In NS 250 / 250 250 / 250 Inj 250 ML @ 250 mls/hr IV.SIG Q12H [facility] Rx#:[id number] Flagyl 500 MG Inj 100 ML @ 100 100 / 100 mls/hr IV.SIG ONCE ONE Rx#: [id number] Anesthesia Amount 500 / 500 Output: Estimated Blood Loss 50 / 50 Other: # Voids 2 Date of Last Bowel Movement 02/09/18 02/08/18 Weight On Admission 90.9 kg Narrative: GENERAL: Well-nourished well-developed, not in acute distress SKIN: Cool and dry, no generalized rash HEAD: Atraumatic. Normocephalic. No temporal or scalp tenderness. EYES: Pupils equal round and reactive. Scleral icterus. No injection or drainage. No petechia ENT: Nothing abnormal detected NECK: Trachea midline. Supple, nontender, no meningeal signs. CARDIOVASCULAR: HS audible. RESPIRATORY: Clear to auscultation bilaterally. GASTROINTESTINAL: Abdomen soft nontender. MUSCULOSKELETAL: Right extremity in postop surgical dressing. NEUROLOGICAL: Alert oriented 3. Nonfocal. Psych cooperative IV line sites ok. Results - Labs CBC & Chem 7: 02/16/18 10:50 02/16/18 10:50 Labs: Laboratory Results - last 24 hr 02/10/18 02/10/18 02/10/18 14:45 14:45 14:45 WBC 12.9 H RBC 4.74 Hgb 11.4 L Hct 35.4 L MCV 74.5 L MCH 24.0 L MCHC 32.1 RDW 19.4 H Plt Count 280 MPV 8.6 Neut % (Auto) 71.1 H Lymph % (Auto) 16.6 [place] % (Auto) 10.2 H Eos % (Auto) 1.2 Baso % (Auto) 0.9 Neut # (Auto) 9.2 H Lymph # (Auto) 2.1 [place] # (Auto) 1.3 H Eos # (Auto) 0.2 Baso # (Auto) 0.1 WBC Differential . Differential Comment Auto diff final ESR PT 10.3 INR 1.0 Sodium 135 L Potassium 5.0 Chloride 103 Carbon Dioxide 24.8 Anion Gap 7 BUN 20 H Creatinine 1.26 Estimated GFR 57 L POC Glucose Random Glucose 122 H Lactic Acid Calcium 8.9 Total Bilirubin 0.6 AST 42 H ALT 12 Alkaline Phosphatase 109 C-Reactive Protein Total Protein 8.4 H Albumin 3.5 02/10/18 02/10/18 02/10/18 14:45 14:45 14:45 WBC RBC Hgb Hct MCV MCH MCHC RDW Plt Count MPV Neut % (Auto) Lymph % (Auto) [place] % (Auto) Eos % (Auto) Baso % (Auto) Neut # (Auto) Lymph # (Auto) [place] # (Auto) Eos # (Auto) Baso # (Auto) WBC Differential Differential Comment ESR 35 H PT INR Sodium Potassium Chloride Carbon Dioxide Anion Gap BUN Creatinine Estimated GFR POC Glucose Random Glucose Lactic Acid 1.3 Calcium Total Bilirubin AST ALT Alkaline Phosphatase C-Reactive Protein 14.00 H Total Protein Albumin 02/10/18 02/10/18 02/11/18 21:55 23:52 05:58 WBC 9.2 RBC 4.44 L Hgb 10.4 L Hct 33.1 L MCV 74.6 L MCH 23.4 L MCHC 31.3 L RDW 19.1 H Plt Count 250 MPV 8.7 Neut % (Auto) Lymph % (Auto) [place] % (Auto) Eos % (Auto) Baso % (Auto) Neut # (Auto) Lymph # (Auto) [place] # (Auto) Eos # (Auto) Baso # (Auto) WBC Differential Differential Comment ESR PT INR Sodium Potassium Chloride Carbon Dioxide Anion Gap BUN Creatinine Estimated GFR POC Glucose 204 H 152 H Random Glucose Lactic Acid Calcium Total Bilirubin AST ALT Alkaline Phosphatase C-Reactive Protein Total Protein Albumin 02/11/18 02/11/18 02/11/18 05:58 07:35 13:24 WBC RBC Hgb Hct MCV MCH MCHC RDW Plt Count MPV Neut % (Auto) Lymph % (Auto) [place] % (Auto) Eos % (Auto) Baso % (Auto) Neut # (Auto) Lymph # (Auto) [place] # (Auto) Eos # (Auto) Baso # (Auto) WBC Differential Differential Comment ESR PT INR Sodium 138 Potassium 4.3 Chloride 105 Carbon Dioxide 22.9 Anion Gap 10 BUN 17 Creatinine 0.97 Estimated GFR 77 L POC Glucose 136 H 147 H Random Glucose 115 H Lactic Acid Calcium 8.6 Total Bilirubin AST ALT Alkaline Phosphatase C-Reactive Protein Total Protein Albumin - Imaging Impressions Chest X-Ray 02/10/18 14:41 CONCLUSION: 1. Cardiomegaly. 2. Minimal increased interstitial markings bilaterally consistent with possible minimal congestion. Clinical correlation is recommended. Knee CT 02/10/18 14:41 CONCLUSION: 1. Healing comminuted fracture deformity of the proximal tibia status post open rigid internal fixation with lateral screw plate fixation device in place. There is diffuse patchy sclerosis and lucency with indistinct fracture lines. The findings could indicate infection. 2. Healing comminuted fracture of the proximal fibula. 3. Cirrhosis as well as numerous small patchy lucencies in the distal femur and patella. 4. Joint effusion and extensive soft tissue swelling. Tibia/Fibula X-Ray 02/10/18 14:41 CONCLUSION: 1. Status post open rigid internal fixation of a proximal tibial fracture with patchy sclerosis and lucency which is nonspecific. 2. Deformity of the proximal fibula as well. 3. Patchy sclerosis involving the distal femur. Knee X-Ray 02/11/18 00:00 CONCLUSION: Status post hardware removal as described above. Assessment and Plan - Plan Possible sepsis present on admission with history of fever 103 as well as elevated white count. Source of infection is right septic arthritis, prosthetic knee joint infection Recent history of being treated with IV antibiotics exam PICC line for right knee prosthetic joint Recommendations: Continue cefazolin IV Continue vancomycin IV target trough 15-24 prosthetic knee joint infection Follow cultures Follow clinically Discussed with patient Discussed with RN. Addendum: Upon review of note the correct documentation of procedure is Removal of deep hardware, irrigation and debridement of right tibia, placement of antibiotic beads.
[2018-02-11] MEDS: Ketorolac Inj 30 MG/ML (IVP) Vial IV.PUSH SCH ×2 (14:07→21:53)
[2018-02-11] MEDS ORDERED: Vancomycin Consult Pharmacy 1 EACH OTHER SCH (14:15)
[2018-02-11] MEDS: Calcium/Vitamin D 250/125 MG Tablet PO SCH ×2 (14:16→17:01)
[2018-02-11] MEDS ORDERED: Influenza (Quadrivalent) Vaccine 0.5 ML Syringe IM ONE (19:30)
[2018-02-11] MEDS ORDERED: ceFAZolin Inj 2,000 MG in Sodium Chlor 0.9% Inj 80 ML IV.SIG SCH (20:00)
[2018-02-11] MEDS: Finasteride 5 MG Tablet PO SCH (21:50)
[2018-02-11] MEDS: ceFAZolin 2 GM Premix Inj 2 GM/50 ML PIGGYBACK IV.SIG SCH (22:02)
[2018-02-12] MEDS: ceFAZolin 2 GM Premix Inj 2 GM/50 ML PIGGYBACK IV.SIG SCH ×3 (04:01→21:32)
[2018-02-12] MEDS: Vancomycin Inj 1,500 MG in Sodium Chlor 0.9% Inj 500 ML IV.SIG SCH ×2 (04:35→16:32)
[2018-02-12] MEDS: Ketorolac Inj 30 MG/ML (IVP) Vial IV.PUSH SCH ×2 (04:35→12:17)
[2018-02-12] MEDS: Gabapentin 300 MG Capsule PO SCH ×3 (06:35→21:32)
--- NOTE | 2018-02-12 07:23 | P.PNOP ---
Subjective Interval history: POD 1 s/p I&D with hardware removal right tibial plateau doing well. pain controlled. Physical Exam Vital signs: Vital Signs 02/11/18 07:43 02/11/18 07:45 02/11/18 08:00 Temperature 98.2 F 98.2 F Pulse Rate 63 63 Respiratory Rate 16 Blood Pressure 116/56 L 116/56 L Pulse Oximetry 95 95 95 02/11/18 08:48 02/11/18 12:15 02/11/18 12:30 Temperature 98.2 F 97.6 F Pulse Rate 63 70 67 Respiratory Rate 16 16 16 Blood Pressure 116/56 L 132/66 122/75 Pulse Oximetry 95 93 L 92 L 02/11/18 12:45 02/11/18 13:00 02/11/18 13:15 Temperature Pulse Rate 64 60 61 Respiratory Rate 16 16 16 Blood Pressure 121/77 126/71 116/61 Pulse Oximetry 92 L 93 L 93 L 02/11/18 13:30 02/11/18 13:45 02/11/18 16:00 Temperature 97.6 F 98.5 F 98.7 F Pulse Rate 63 59 L 62 Respiratory Rate 16 12 14 Blood Pressure 120/61 109/61 112/57 L Pulse Oximetry 93 L 93 L 92 L 02/11/18 17:11 02/11/18 18:40 02/11/18 19:57 Temperature 99.1 F Pulse Rate 61 Respiratory Rate 12 12 16 Blood Pressure 118/58 L Pulse Oximetry 94 L 02/11/18 22:02 02/12/18 00:00 02/12/18 04:00 Temperature 98.3 F 98.0 F Pulse Rate 64 55 L Respiratory Rate 18 16 Blood Pressure 105/55 L 119/56 L Pulse Oximetry 94 L 96 98 02/12/18 07:00 Temperature Pulse Rate Respiratory Rate 12 Blood Pressure Pulse Oximetry Intake & Output 02/11/18 02/12/18 02/12/18 18:59 06:59 18:59 Intake Total 1750 / 1750 1615 / 1615 240 / 240 Output Total 275 / 275 Balance 1475 / 1475 1615 / 1615 240 / 240 Intake: IV 1250 / 1250 1615 / 1615 LR 1000 mL Inj 1,000 ML @ 80 1000 / 1000 mls/hr IV.CONT .[id number] [facility] Rx# :[id number] LR 1000 mL Inj 1,000 ML @ 30 1000 / 1000 mls/hr IV.SIG .Q24H [facility] Rx#: [id number] Vancomycin Inj 1,000 MG In NS 250 / 250 Inj 250 ML @ 200 mls/hr IV.SIG Q12H [facility] Rx#:[id number] Vancomycin Inj 1,500 MG In NS 515 / 515 Inj 500 ML @ 250 mls/hr IV.SIG Q12H [facility] Rx#:[id number] Ancef 2 GM Premix Inj 2 gm In 100 / 100 50 ml @ 200 mls/hr IV.SIG Q8H [facility] Rx#:[id number] Oral 240 / 240 Anesthesia Amount 500 / 500 Output: Urine 225 / 225 Estimated Blood Loss 50 / 50 Other: Date of Last Bowel Movement 02/08/18 02/09/18 Narrative: RLE: dressings clean and dry. intact. NVI. +CKS Results - Labs CBC & Chem 7: 02/11/18 05:58 02/11/18 05:58 Laboratory Results - last 24 hr 02/11/18 02/11/18 02/11/18 05:58 05:58 07:35 WBC 9.2 RBC 4.44 L Hgb 10.4 L Hct 33.1 L MCV 74.6 L MCH 23.4 L MCHC 31.3 L RDW 19.1 H Plt Count 250 MPV 8.7 Sodium 138 Potassium 4.3 Chloride 105 Carbon Dioxide 22.9 Anion Gap 10 BUN 17 Creatinine 0.97 Estimated GFR 77 L POC Glucose 136 H Random Glucose 115 H Calcium 8.6 02/11/18 02/11/18 02/11/18 13:24 13:57 16:30 WBC RBC Hgb Hct MCV MCH MCHC RDW Plt Count MPV Sodium Potassium Chloride Carbon Dioxide Anion Gap BUN Creatinine Estimated GFR POC Glucose 147 H 149 H 267 H Random Glucose Calcium 02/11/18 20:03 WBC RBC Hgb Hct MCV MCH MCHC RDW Plt Count MPV Sodium Potassium Chloride Carbon Dioxide Anion Gap BUN Creatinine Estimated GFR POC Glucose 213 H Random Glucose Calcium Microbiology 02/11/18 11:30 Tissue - Incision Fungal Smear - Final No fungal elements seen 02/11/18 11:30 Tissue - Incision Fungal Smear - Final No fungal elements seen 02/11/18 11:30 Tissue - Incision Fungal Smear - Final No fungal elements seen 02/11/18 11:30 Tissue - Incision Gram Stain - Final 02/11/18 11:30 Tissue - Incision Gram Stain - Final 02/11/18 11:30 Tissue - Incision Gram Stain - Final 02/10/18 14:40 Wound - Leg Gram Stain - Final 02/10/18 14:40 Wound - Leg Wound Culture - Preliminary gram positive cocci 02/10/18 14:45 Blood - Peripheral Aerobic Blood Culture - Preliminary No growth in 1 day 02/10/18 14:45 Blood - Peripheral Anaerobic Blood Culture - Preliminary No growth in 1 day 02/10/18 14:50 Blood - Peripheral Aerobic Blood Culture - Preliminary No growth in 1 day 02/10/18 14:50 Blood - Peripheral Anaerobic Blood Culture - Preliminary No growth in 1 day - Imaging Impressions Knee X-Ray 02/11/18 00:00 CONCLUSION: Status post hardware removal as described above. 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 Acute pain exception. This patient has normal, predicted, physiological, and time limited response to an adverse mechanical stimulus associated with surgery, trauma, or acute illness as described in my notes. There is a lack of alternative treatment options other than to include the prescribed narcotic treatment for this condition.
[2018-02-12] MEDS: Calcium/Vitamin D 250/125 MG Tablet PO SCH ×3 (08:10→17:03)
[2018-02-12] MEDS: Furosemide 40 MG Tablet PO SCH (08:10)
[2018-02-12] MEDS: Spironolactone 25 MG Tablet PO SCH (08:11)
[2018-02-12] MEDS: Senna/Docusate Sodium 8.6/50 MG Tablet PO SCH ×2 (08:11→21:32)
[2018-02-12] MEDS: Lisinopril 10 MG Tablet PO SCH (08:11)
[2018-02-12] MEDS: Insulin NovoLOG Aspart Correctional Sugar Inj SQ SCH ×3 (08:12→16:32)
[2018-02-12] MEDS: amLODIPine 10 MG Tablet PO SCH (08:19)
[2018-02-12] MEDS: Tiotropium Bromide 18 MCG/ACT Inhaler INH SCH (08:22)
--- NOTE | 2018-02-12 11:56 | P.PN ---
Subjective Interval history: occasional intermittent pain- 3-4 out of 10 Physical Exam Vital signs: Vital Signs 02/11/18 12:15 02/11/18 12:30 02/11/18 12:45 Temperature 97.6 F Pulse Rate 70 67 64 Respiratory Rate 16 16 16 Blood Pressure 132/66 122/75 121/77 Pulse Oximetry 93 L 92 L 92 L 02/11/18 13:00 02/11/18 13:15 02/11/18 13:30 Temperature 97.6 F Pulse Rate 60 61 63 Respiratory Rate 16 16 16 Blood Pressure 126/71 116/61 120/61 Pulse Oximetry 93 L 93 L 93 L 02/11/18 13:45 02/11/18 16:00 02/11/18 17:11 Temperature 98.5 F 98.7 F Pulse Rate 59 L 62 Respiratory Rate 12 14 12 Blood Pressure 109/61 112/57 L Pulse Oximetry 93 L 92 L 02/11/18 18:40 02/11/18 19:57 02/11/18 22:02 Temperature 99.1 F Pulse Rate 61 Respiratory Rate 12 16 Blood Pressure 118/58 L Pulse Oximetry 94 L 94 L 02/12/18 00:00 02/12/18 04:00 02/12/18 07:00 Temperature 98.3 F 98.0 F Pulse Rate 64 55 L Respiratory Rate 18 16 12 Blood Pressure 105/55 L 119/56 L Pulse Oximetry 96 98 02/12/18 08:00 02/12/18 08:05 02/12/18 09:00 Temperature 97.8 F Pulse Rate 56 L 52 L Respiratory Rate 15 12 Blood Pressure 120/62 Pulse Oximetry 94 L Intake & Output 02/11/18 02/12/18 02/12/18 18:59 06:59 18:59 Intake Total 1750 / 1750 1615 / 1615 240 / 240 Output Total 275 / 275 Balance 1475 / 1475 1615 / 1615 240 / 240 Intake: IV 1250 / 1250 1615 / 1615 LR 1000 mL Inj 1,000 ML @ 80 1000 / 1000 mls/hr IV.CONT .[id number] [facility] Rx# :[id number] LR 1000 mL Inj 1,000 ML @ 30 1000 / 1000 mls/hr IV.SIG .Q24H [facility] Rx#: [id number] Vancomycin Inj 1,000 MG In NS 250 / 250 Inj 250 ML @ 200 mls/hr IV.SIG Q12H [facility] Rx#:[id number] Vancomycin Inj 1,500 MG In NS 515 / 515 Inj 500 ML @ 250 mls/hr IV.SIG Q12H [facility] Rx#:[id number] Ancef 2 GM Premix Inj 2 gm In 100 / 100 50 ml @ 200 mls/hr IV.SIG Q8H [facility] Rx#:[id number] Oral 240 / 240 Anesthesia Amount 500 / 500 Output: Urine 225 / 225 Estimated Blood Loss 50 / 50 Other: Date of Last Bowel Movement 02/08/18 02/09/18 02/08/18 Narrative: awake and alert no distress anicteric lungs- no rales regular rhythm abdomen soft, nontender RLE- post op dressing CKS in place Results - Labs CBC & Chem 7: 02/11/18 05:58 02/11/18 05:58 Laboratory Results - last 24 hr 02/11/18 02/11/18 02/11/18 13:24 13:57 16:30 POC Glucose 147 H 149 H 267 H 02/11/18 02/12/18 02/12/18 20:03 07:14 11:26 POC Glucose 213 H 188 H 174 H Microbiology 02/10/18 14:45 Blood - Peripheral Aerobic Blood Culture - Preliminary No growth in 2 days 02/10/18 14:45 Blood - Peripheral Anaerobic Blood Culture - Preliminary No growth in 2 days 02/10/18 14:50 Blood - Peripheral Aerobic Blood Culture - Preliminary No growth in 2 days 02/10/18 14:50 Blood - Peripheral Anaerobic Blood Culture - Preliminary No growth in 2 days 02/10/18 14:40 Wound - Leg Gram Stain - Final 02/10/18 14:40 Wound - Leg Wound Culture - Final 02/11/18 11:30 Tissue - Incision Fungal Smear - Final No fungal elements seen 02/11/18 11:30 Tissue - Incision Fungal Smear - Final No fungal elements seen 02/11/18 11:30 Tissue - Incision Fungal Smear - Final No fungal elements seen 02/11/18 11:30 Tissue - Incision Gram Stain - Final 02/11/18 11:30 Tissue - Incision Gram Stain - Final 02/11/18 11:30 Tissue - Incision Gram Stain - Final - Imaging Impressions Knee X-Ray 02/11/18 00:00 CONCLUSION: Status post hardware removal as described above. Assessment and Plan - Assessment (1) Wound infection after surgery Code(s): T81.49XA - Infection following a procedure, other surgical site, initial encounter Status: Acute - Plan 67-year-old man with 1.septic L knee with hardware in place S/P Removal of deep hardware, irrigation and debridement of right tibia, placement of antibiotic beads 02/11 -Currently on vancomycin - Perioperaitive cultures- pending \- ID ff along with us -PT consult - [place] PRN - patient states had had PICC line in the past for OP IV antibiotics 2. CAD with multiple stents, HTN - restart ASA and Plavix - Continue carvedilol and lisinopril, amlodipine 3. COPD JUAN - on CPAP hs - Not in acute exacerbation - Supplemental O2 PRN, DuoNeb as needed 4. CHF- not in clinical failure - Continue home Lasix, carvedilol, and spironolactone 5. DM - patient states uses Lantus in the past and has not been on it- lost weight - he insists on regular diet- and will not eat if we put him on ADA diet - restart his metformin 1 gm bid - SSI with AccuChecks per protocol 6. HLD -Continue home statin 7. BPH - Continue home Proscar 8. Depression - Continue home meds
[2018-02-12] MEDS: Enoxaparin Inj 30 MG/0.3 ML Syringe SQ SCH (12:17)
--- NOTE | 2018-02-12 13:38 | P.PNID ---
Subjective Remarks: Mr. Tovar is a 67-year-old male with past medical history significant for coronary artery disease, COPD, congestive heart failure, diabetes. Patient reported a traumatic right tibial plateau fracture in August 2017 and underwent repair by Dr. Garcia. This was complicated by infection in October 2017 requiring a long course of IV vancomycin by Dr. Bynum by psych. Patient reports having a PICC line at that time and being followed by Dr. Plascencia. Patient started weightbearing approximately 6 weeks back. He reports that approximately 5 days prior to admission he started noticing pain around his right knee as well as subsequently malodorous clear discharge from the prior surgical site. On the day of admission patient had a temperature of 103 Fahrenheit. In addition patient started developing nausea, fatigue as well as generalized malaise. He this drainage from the knee started becoming yellow and started draining. On the right leg secondary to severe pain. [place] at home with good relief. He went to his PCP who recommended. Patient has been evaluated by orthopedic Dr. Garcia and underwent irrigation and debridement as well as removal of the hardware and placement of spacer. Drop cultures are pending at the present time. Intra-Op note reports purulent material seen intraoperatively. Patient has had a workup for sepsis all cultures are pending and patient has been started on empiric antibiotics. Overnight events reviewed. No fever No rash Pain well-tolerated. Refuses to go to rehab. Antibiotics: Ancef IV Vanco IV Lines: Line sites with no evidence of infection. Past Medical History: Reviewed. Allergies/Adverse Reactions: Allergies penicillin G Allergy (Unknown, Verified 12/05/17 10:59) childhood reaction unknown reaction Penicillins Allergy (Unknown, Verified 12/05/17 08:09) childhood reaction Objective Vital Signs 02/11/18 13:45 02/11/18 16:00 02/11/18 17:11 Temperature 98.5 F 98.7 F Pulse Rate 59 L 62 Respiratory Rate 12 14 12 Blood Pressure 109/61 112/57 L Pulse Oximetry 93 L 92 L 02/11/18 18:40 02/11/18 19:57 02/11/18 22:02 Temperature 99.1 F Pulse Rate 61 Respiratory Rate 12 16 Blood Pressure 118/58 L Pulse Oximetry 94 L 94 L 02/12/18 00:00 02/12/18 04:00 02/12/18 07:00 Temperature 98.3 F 98.0 F Pulse Rate 64 55 L Respiratory Rate 18 16 12 Blood Pressure 105/55 L 119/56 L Pulse Oximetry 96 98 02/12/18 08:00 02/12/18 08:05 02/12/18 09:00 Temperature 97.8 F Pulse Rate 56 L 52 L Respiratory Rate 15 12 Blood Pressure 120/62 Pulse Oximetry 94 L 02/12/18 12:00 02/12/18 12:43 Temperature 97.6 F Pulse Rate 53 L 56 L Respiratory Rate 15 Blood Pressure 124/57 L Pulse Oximetry 95 Intake & Output 02/11/18 02/12/18 02/12/18 18:59 06:59 18:59 Intake Total 1750 / 1750 1615 / 1615 290 / 290 Output Total 275 / 275 Balance 1475 / 1475 1615 / 1615 290 / 290 Intake: IV 1250 / 1250 1615 / 1615 50 / 50 LR 1000 mL Inj 1,000 ML @ 80 1000 / 1000 mls/hr IV.CONT .[id number] [facility] Rx# :[id number] LR 1000 mL Inj 1,000 ML @ 30 1000 / 1000 mls/hr IV.SIG .Q24H [facility] Rx#: [id number] Vancomycin Inj 1,000 MG In NS 250 / 250 Inj 250 ML @ 200 mls/hr IV.SIG Q12H [facility] Rx#:[id number] Vancomycin Inj 1,500 MG In NS 515 / 515 Inj 500 ML @ 250 mls/hr IV.SIG Q12H [facility] Rx#:[id number] Ancef 2 GM Premix Inj 2 gm In 100 / 100 50 / 50 50 ml @ 200 mls/hr IV.SIG Q8H [facility] Rx#:[id number] Oral 240 / 240 Anesthesia Amount 500 / 500 Output: Urine 225 / 225 Estimated Blood Loss 50 / 50 Other: Date of Last Bowel Movement 02/08/18 02/09/18 02/08/18 02/11/18 11:30 Tissue - Incision Gram Stain - Final 02/11/18 11:30 Tissue - Incision Wound Culture - Preliminary No growth in 24 hours 02/10/18 14:45 Blood - Peripheral Aerobic Blood Culture - Preliminary No growth in 2 days 02/10/18 14:45 Blood - Peripheral Anaerobic Blood Culture - Preliminary No growth in 2 days 02/10/18 14:50 Blood - Peripheral Aerobic Blood Culture - Preliminary No growth in 2 days 02/10/18 14:50 Blood - Peripheral Anaerobic Blood Culture - Preliminary No growth in 2 days 02/10/18 14:40 Wound - Leg Gram Stain - Final 02/10/18 14:40 Wound - Leg Wound Culture - Final 02/11/18 11:30 Tissue - Incision Fungal Smear - Final No fungal elements seen 02/11/18 11:30 Tissue - Incision Fungal Culture - Pending 02/11/18 11:30 Tissue - Incision Fungal Smear - Final No fungal elements seen 02/11/18 11:30 Tissue - Incision Fungal Culture - Pending 02/11/18 11:30 Tissue - Incision Fungal Smear - Final No fungal elements seen 02/11/18 11:30 Tissue - Incision Fungal Culture - Pending 02/11/18 11:30 Tissue - Incision Gram Stain - Final 02/11/18 11:30 Tissue - Incision Wound Culture - Pending 02/11/18 11:30 Tissue - Incision Gram Stain - Final 02/11/18 11:30 Tissue - Incision Wound Culture - Pending 02/11/18 11:30 Tissue - Incision Acid Fast Bacilli Smear - Pending 02/11/18 11:30 Tissue - Incision Mycobacterial Culture - Pending 02/11/18 11:30 Tissue - Incision Acid Fast Bacilli Smear - Pending 02/11/18 11:30 Tissue - Incision Mycobacterial Culture - Pending 02/11/18 11:30 Tissue - Incision Acid Fast Bacilli Smear - Pending 02/11/18 11:30 Tissue - Incision Mycobacterial Culture - Pending Lab - Hematology Results 02/10/18 02/10/18 02/11/18 14:45 14:45 05:58 WBC 12.9 H 9.2 RBC 4.74 4.44 L Hgb 11.4 L 10.4 L Hct 35.4 L 33.1 L MCV 74.5 L 74.6 L MCH 24.0 L 23.4 L MCHC 32.1 31.3 L RDW 19.4 H 19.1 H Plt Count 280 250 MPV 8.6 8.7 Neut % (Auto) 71.1 H Lymph % (Auto) 16.6 [place] % (Auto) 10.2 H Eos % (Auto) 1.2 Baso % (Auto) 0.9 Neut # (Auto) 9.2 H Lymph # (Auto) 2.1 [place] # (Auto) 1.3 H Eos # (Auto) 0.2 Baso # (Auto) 0.1 WBC Differential . Differential Comment Auto diff final ESR 35 H Lab - Chemistry Results 02/10/18 02/10/18 02/10/18 14:45 14:45 14:45 Sodium 135 L Potassium 5.0 Chloride 103 Carbon Dioxide 24.8 Anion Gap 7 BUN 20 H Creatinine 1.26 Estimated GFR 57 L POC Glucose Random Glucose 122 H Lactic Acid 1.3 Calcium 8.9 Total Bilirubin 0.6 AST 42 H ALT 12 Alkaline Phosphatase 109 C-Reactive Protein 14.00 H Total Protein 8.4 H Albumin 3.5 02/10/18 02/10/18 02/11/18 21:55 23:52 05:58 Sodium 138 Potassium 4.3 Chloride 105 Carbon Dioxide 22.9 Anion Gap 10 BUN 17 Creatinine 0.97 Estimated GFR 77 L POC Glucose 204 H 152 H Random Glucose 115 H Lactic Acid Calcium 8.6 Total Bilirubin AST ALT Alkaline Phosphatase C-Reactive Protein Total Protein Albumin 02/11/18 02/11/18 02/11/18 07:35 13:24 13:57 Sodium Potassium Chloride Carbon Dioxide Anion Gap BUN Creatinine Estimated GFR POC Glucose 136 H 147 H 149 H Random Glucose Lactic Acid Calcium Total Bilirubin AST ALT Alkaline Phosphatase C-Reactive Protein Total Protein Albumin 02/11/18 02/11/18 02/12/18 16:30 20:03 07:14 Sodium Potassium Chloride Carbon Dioxide Anion Gap BUN Creatinine Estimated GFR POC Glucose 267 H 213 H 188 H Random Glucose Lactic Acid Calcium Total Bilirubin AST ALT Alkaline Phosphatase C-Reactive Protein Total Protein Albumin 02/12/18 11:26 Sodium Potassium Chloride Carbon Dioxide Anion Gap BUN Creatinine Estimated GFR POC Glucose 174 H Random Glucose Lactic Acid Calcium Total Bilirubin AST ALT Alkaline Phosphatase C-Reactive Protein Total Protein Albumin Imaging: ITS Impressions Chest X-Ray 02/10/18 14:41 CONCLUSION: 1. Cardiomegaly. 2. Minimal increased interstitial markings bilaterally consistent with possible minimal congestion. Clinical correlation is recommended. Knee CT 02/10/18 14:41 CONCLUSION: 1. Healing comminuted fracture deformity of the proximal tibia status post open rigid internal fixation with lateral screw plate fixation device in place. There is diffuse patchy sclerosis and lucency with indistinct fracture lines. The findings could indicate infection. 2. Healing comminuted fracture of the proximal fibula. 3. Cirrhosis as well as numerous small patchy lucencies in the distal femur and patella. 4. Joint effusion and extensive soft tissue swelling. Tibia/Fibula X-Ray 02/10/18 14:41 CONCLUSION: 1. Status post open rigid internal fixation of a proximal tibial fracture with patchy sclerosis and lucency which is nonspecific. 2. Deformity of the proximal fibula as well. 3. Patchy sclerosis involving the distal femur. Knee X-Ray 02/11/18 00:00 CONCLUSION: Status post hardware removal as described above. Physical Exam: GENERAL: Well-nourished well-developed, not in acute distress SKIN: Cool and dry, no generalized rash HEAD: Atraumatic. Normocephalic. No temporal or scalp tenderness. EYES: Pupils equal round and reactive. Scleral icterus. No injection or drainage. No petechia ENT: Nothing abnormal detected NECK: Trachea midline. Supple, nontender, no meningeal signs. CARDIOVASCULAR: HS audible. RESPIRATORY: Clear to auscultation bilaterally. GASTROINTESTINAL: Abdomen soft nontender. MUSCULOSKELETAL: Right extremity in postop surgical dressing. NEUROLOGICAL: Alert oriented 3. Nonfocal. Psych cooperative IV line sites ok. Assessment and Plan - Plan Possible sepsis present on admission with history of fever 103 as well as elevated white count. Source of infection is right septic arthritis, prosthetic knee joint infection Recent history of being treated with IV antibiotics exam PICC line for right knee prosthetic joint Recommendations: Continue cefazolin IV Continue vancomycin IV target trough 15-24 prosthetic knee joint infection Follow cultures Follow clinically Discussed with patient Discussed with RN. andria CM will need IV antibiotics await cultures. Addendum: Upon review of note the correct documentation of procedure is Removal of deep hardware, irrigation and debridement of right tibia, placement of antibiotic beads.
[2018-02-12] MEDS: Finasteride 5 MG Tablet PO SCH (21:32)
[2018-02-13] MEDS: Insulin NovoLOG Aspart Correctional Sugar Inj SQ SCH ×5 (00:07→23:25)
[2018-02-13] MEDS ORDERED: Pharmacy Ordered Lab Info OTHER ONE (03:45)
[2018-02-13] MEDS: Vancomycin Inj 1,500 MG in Sodium Chlor 0.9% Inj 500 ML IV.SIG SCH (04:25)
[2018-02-13] MEDS: ceFAZolin 2 GM Premix Inj 2 GM/50 ML PIGGYBACK IV.SIG SCH ×2 (04:54→13:31)
[2018-02-13] MEDS: Gabapentin 300 MG Capsule PO SCH ×3 (05:20→22:11)
--- NOTE | 2018-02-13 07:14 | P.PNOP ---
Subjective Interval history: POD 2 s/p I&D with TREY right tibia doing well. pain improving. no new complaints. Physical Exam Vital signs: Vital Signs 02/12/18 08:00 02/12/18 08:05 02/12/18 09:00 Temperature 97.8 F Pulse Rate 56 L 52 L Respiratory Rate 15 12 Blood Pressure 120/62 Pulse Oximetry 94 L 02/12/18 12:00 02/12/18 12:43 02/12/18 16:00 Temperature 97.6 F 97.5 F L Pulse Rate 53 L 56 L 55 L Respiratory Rate 15 15 Blood Pressure 124/57 L 107/53 L Pulse Oximetry 95 98 02/12/18 17:27 02/12/18 20:00 02/12/18 21:03 Temperature 97.9 F Pulse Rate 57 L 55 L Respiratory Rate 20 Blood Pressure 121/58 L Pulse Oximetry 91 L 94 L 02/12/18 22:16 02/12/18 23:58 02/13/18 04:00 Temperature 97.6 F 97.6 F Pulse Rate 46 L 52 L 55 L Respiratory Rate 20 20 18 Blood Pressure 113/67 104/59 L Pulse Oximetry 97 99 98 Intake & Output 02/12/18 02/13/18 02/13/18 18:59 06:59 18:59 Intake Total 1765 / 1765 100 / 100 Output Total 300 / 300 1500 / 1500 Balance 1465 / 1465 -1400 / -1400 Weight 96.6 kg Intake: IV 565 / 565 100 / 100 Vancomycin Inj 1,500 MG In NS 515 / 515 Inj 500 ML @ 250 mls/hr IV.SIG Q12H [facility] Rx#:[id number] Ancef 2 GM Premix Inj 2 gm In 50 / 50 100 / 100 50 ml @ 200 mls/hr IV.SIG Q8H [facility] Rx#:[id number] Oral 1200 / 1200 Output: Urine 300 / 300 1500 / 1500 Other: Date of Last Bowel Movement 02/08/18 Narrative: RLE: dressings clean and dry. intact. full sensation distally. +foot drop. Results - Labs CBC & Chem 7: 02/11/18 05:58 02/11/18 05:58 Laboratory Results - last 24 hr 02/12/18 02/12/18 02/12/18 07:14 11:26 16:21 POC Glucose 188 H 174 H 153 H Vancomycin Trough 02/12/18 02/13/18 22:09 03:45 POC Glucose 140 H Vancomycin Trough 19.6 H Microbiology 02/11/18 11:30 Tissue - Incision Gram Stain - Final 02/11/18 11:30 Tissue - Incision Wound Culture - Preliminary gram positive cocci 02/11/18 11:30 Tissue - Incision Gram Stain - Final 02/11/18 11:30 Tissue - Incision Wound Culture - Preliminary gram positive cocci 02/11/18 11:30 Tissue - Incision Gram Stain - Final 02/11/18 11:30 Tissue - Incision Wound Culture - Preliminary No growth in 24 hours 02/10/18 14:45 Blood - Peripheral Aerobic Blood Culture - Preliminary No growth in 2 days 02/10/18 14:45 Blood - Peripheral Anaerobic Blood Culture - Preliminary No growth in 2 days 02/10/18 14:50 Blood - Peripheral Aerobic Blood Culture - Preliminary No growth in 2 days 02/10/18 14:50 Blood - Peripheral Anaerobic Blood Culture - Preliminary No growth in 2 days 02/10/18 14:40 Wound - Leg Gram Stain - Final 02/10/18 14:40 Wound - Leg Wound Culture - Final Assessment and Plan - Problem List (1) Wound infection after surgery Code(s): T81.49XA - Infection following a procedure, other surgical site, initial encounter Status: Acute (2) Tibial plateau fracture, right Code(s): S82.141A - Displaced bicondylar fracture of right tibia, initial encounter for closed fracture Status: Chronic Qualifiers: Encounter type: sequela Fracture type: open Open fracture type: open type I or II Qualified Code(s): S82.141S - Displaced bicondylar fracture of right tibia, sequela - Assessment and Plan 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 awaiting infectious Dz recs -f/u with Jose or [facility] in 2 weeks [facility] Prescription Drug Monitoring Database has been queried and verified prior to prescribing the controlled substance. Acute pain exception. This patient has normal, predicted, physiological, and time limited response to an adverse mechanical stimulus associated with surgery, trauma, or acute illness as described in my notes. There is a lack of alternative treatment options other than to include the prescribed narcotic treatment for this condition.
--- NOTE | 2018-02-13 07:21 | P.DCO ---
- Physical Therapy Physical Therapy: Gait training, Safety evaluation Knee: Knee fracture, Protocol: Right, Non weight bearing Canvas Knee Splint: Remove only with PT Right Lower Extremity Weight Bearing: Non-weight bearing, No strengthening, No quad sets Right Lower Extremity Range of Motion: Passive ROM (0-90deg) - Nursing Dressing changes: Daily dressing change, Xeroform, Coverderm/Primapore - Certification Need for Home Health services: I have seen patient Jose Carlos [place] Guy [facility]ARDS on 02/13/18. My clinical findings support the need for the requested home health care services because: Need for Home Health Services: Limited mobility due to disease progression Homebound Certification: I certify that my clinical findings support that this patient is homebound because: Homebound Certification: Post-op weakness
[2018-02-13] MEDS ORDERED: Influenza (Quadrivalent) Vaccine 0.5 ML Syringe IM ONE (09:00)
[2018-02-13] MEDS: Lisinopril 10 MG Tablet PO SCH (09:32)
[2018-02-13] MEDS: Furosemide 40 MG Tablet PO SCH (09:32)
[2018-02-13] MEDS: Calcium/Vitamin D 250/125 MG Tablet PO SCH ×3 (09:32→17:14)
[2018-02-13] MEDS: Spironolactone 25 MG Tablet PO SCH (09:33)
[2018-02-13] MEDS: Senna/Docusate Sodium 8.6/50 MG Tablet PO SCH ×2 (09:33→22:11)
[2018-02-13] MEDS: amLODIPine 10 MG Tablet PO SCH (09:33)
[2018-02-13] MEDS: Tiotropium Bromide 18 MCG/ACT Inhaler INH SCH (09:45)
--- NOTE | 2018-02-13 10:24 | P.PN ---
Subjective Interval history: awake and alert, no fever or chills no complains of pain went over his home regimen Physical Exam Vital signs: Vital Signs 02/12/18 12:00 02/12/18 12:43 02/12/18 16:00 Temperature 97.6 F 97.5 F L Pulse Rate 53 L 56 L 55 L Respiratory Rate 15 15 Blood Pressure 124/57 L 107/53 L Pulse Oximetry 95 98 02/12/18 17:27 02/12/18 20:00 02/12/18 21:03 Temperature 97.9 F Pulse Rate 57 L 55 L Respiratory Rate 20 Blood Pressure 121/58 L Pulse Oximetry 91 L 94 L 02/12/18 22:16 02/12/18 23:58 02/13/18 04:00 Temperature 97.6 F 97.6 F Pulse Rate 46 L 52 L 55 L Respiratory Rate 20 20 18 Blood Pressure 113/67 104/59 L Pulse Oximetry 97 99 98 02/13/18 07:49 Temperature 98.1 F Pulse Rate 57 L Respiratory Rate 18 Blood Pressure 133/83 Pulse Oximetry 94 L Intake & Output 02/12/18 02/13/18 02/13/18 18:59 06:59 18:59 Intake Total 1765 / 1765 100 / 100 515 / 515 Output Total 300 / 300 1500 / 1500 200 / 200 Balance 1465 / 1465 -1400 / -1400 315 / 315 Weight 96.6 kg Intake: IV 565 / 565 100 / 100 515 / 515 Vancomycin Inj 1,500 MG In NS 515 / 515 515 / 515 Inj 500 ML @ 250 mls/hr IV.SIG Q12H [facility] Rx#:[id number] Ancef 2 GM Premix Inj 2 gm In 50 / 50 100 / 100 50 ml @ 200 mls/hr IV.SIG Q8H [facility] Rx#:[id number] Oral 1200 / 1200 Output: Urine 300 / 300 1500 / 1500 200 / 200 Other: Date of Last Bowel Movement 02/08/18 Narrative: awake and alert no distress anicteric lungs- no rales regular rhythm abdomen soft, nontender RLE- post op dressing CKS in place no pedal edema Results - Labs CBC & Chem 7: 02/11/18 05:58 02/11/18 05:58 Laboratory Results - last 24 hr 02/12/18 02/12/18 02/12/18 11:26 16:21 22:09 POC Glucose 174 H 153 H 140 H Vancomycin Trough 02/13/18 02/13/18 03:45 08:24 POC Glucose 121 H Vancomycin Trough 19.6 H Microbiology 02/11/18 11:30 Tissue - Incision Gram Stain - Final 02/11/18 11:30 Tissue - Incision Wound Culture - Preliminary Staphylococcus coag negative 02/11/18 11:30 Tissue - Incision Fungal Smear - Final No fungal elements seen 02/11/18 11:30 Tissue - Incision Acid Fast Bacilli Smear - Final No acid fast bacilli seen 02/11/18 11:30 Tissue - Incision Gram Stain - Final 02/11/18 11:30 Tissue - Incision Wound Culture - Preliminary Staphylococcus coag negative 02/11/18 11:30 Tissue - Incision Fungal Smear - Final No fungal elements seen 02/11/18 11:30 Tissue - Incision Gram Stain - Final 02/11/18 11:30 Tissue - Incision Wound Culture - Preliminary Staphylococcus species 02/11/18 11:30 Tissue - Incision Acid Fast Bacilli Smear - Final No acid fast bacilli seen 02/11/18 11:30 Tissue - Incision Acid Fast Bacilli Smear - Final No acid fast bacilli seen 02/10/18 14:45 Blood - Peripheral Aerobic Blood Culture - Preliminary No growth in 2 days 02/10/18 14:45 Blood - Peripheral Anaerobic Blood Culture - Preliminary No growth in 2 days 02/10/18 14:50 Blood - Peripheral Aerobic Blood Culture - Preliminary No growth in 2 days 02/10/18 14:50 Blood - Peripheral Anaerobic Blood Culture - Preliminary No growth in 2 days 02/10/18 14:40 Wound - Leg Gram Stain - Final 02/10/18 14:40 Wound - Leg Wound Culture - Final Assessment and Plan - Assessment (1) Wound infection after surgery Code(s): T81.49XA - Infection following a procedure, other surgical site, initial encounter Status: Acute - Plan 67-year-old man with 1.septic L knee with hardware in place S/P Removal of deep hardware, irrigation and debridement of right tibia, placement of antibiotic beads 02/11 -Currently on vancomycin - Perioperaitive cultures- pending - AFB negative, S coag negative + final C and s pending -PT ff - [place] PRN - patient states had had PICC line in the past for OP IV antibiotics 2. CAD with multiple stents, HTN - restart ASA and Plavix - Continue carvedilol amlodipine - now states he is not on Lisinopril- wwe will DC this - states he is on Entresto 49/51 bid 3. COPD JUAN- has CPAP at hs- bedside - Not in acute exacerbation - Supplemental O2 PRN, DuoNeb as needed 4. CHF- not in clinical failure - Continue home Lasix, carvedilol, and spironolactone 5. DM - patient states uses Lantus in the past and has not been on it- lost weight - he insists on regular diet- and will not eat if we put him on ADA diet - restart his metformin 1 gm bid - SSI with AccuChecks per protocol 6. HLD -Continue home statin 7. BPH - DC Flomax- patient states he is not on this - strt him on hi finasteride 5 mg daily 8. Depression - Continue home meds LOvenox for DVT prophylaxis
[2018-02-13] MEDS: Enoxaparin Inj 30 MG/0.3 ML Syringe SQ SCH (11:45)
--- NOTE | 2018-02-13 13:59 | P.PNID ---
Subjective Remarks: Mr. Tovar is a 67-year-old male with past medical history significant for coronary artery disease, COPD, congestive heart failure, diabetes. Patient reported a traumatic right tibial plateau fracture in August 2017 and underwent repair by Dr. Garcia. This was complicated by infection in October 2017 requiring a long course of IV vancomycin by Dr. Bynum by psych. Patient reports having a PICC line at that time and being followed by Dr. Plascencia. Patient started weightbearing approximately 6 weeks back. He reports that approximately 5 days prior to admission he started noticing pain around his right knee as well as subsequently malodorous clear discharge from the prior surgical site. On the day of admission patient had a temperature of 103 Fahrenheit. In addition patient started developing nausea, fatigue as well as generalized malaise. He this drainage from the knee started becoming yellow and started draining. On the right leg secondary to severe pain. [place] at home with good relief. He went to his PCP who recommended. Patient has been evaluated by orthopedic Dr. Garcia and underwent irrigation and debridement as well as removal of the hardware and placement of spacer. Drop cultures are pending at the present time. Intra-Op note reports purulent material seen intraoperatively. Patient has had a workup for sepsis all cultures are pending and patient has been started on empiric antibiotics. Overnight events reviewed. No fever No rash Pain well-tolerated. Refuses to go to rehab. Antibiotics: Ancef IV Vanco IV Lines: Line sites with no evidence of infection. Past Medical History: Reviewed. Allergies/Adverse Reactions: Allergies penicillin G Allergy (Unknown, Verified 12/05/17 10:59) childhood reaction unknown reaction Penicillins Allergy (Unknown, Verified 12/05/17 08:09) childhood reaction Objective Vital Signs 02/12/18 16:00 02/12/18 17:27 02/12/18 20:00 Temperature 97.5 F L 97.9 F Pulse Rate 55 L 57 L 55 L Respiratory Rate 15 20 Blood Pressure 107/53 L 121/58 L Pulse Oximetry 98 91 L 02/12/18 21:03 02/12/18 22:16 02/12/18 23:58 Temperature 97.6 F Pulse Rate 46 L 52 L Respiratory Rate 20 20 Blood Pressure 113/67 Pulse Oximetry 94 L 97 99 02/13/18 04:00 02/13/18 07:49 02/13/18 12:00 Temperature 97.6 F 98.1 F 98.1 F Pulse Rate 55 L 57 L 57 L Respiratory Rate 18 18 20 Blood Pressure 104/59 L 133/83 130/67 Pulse Oximetry 98 94 L 94 L Intake & Output 02/12/18 02/13/18 02/13/18 18:59 06:59 18:59 Intake Total 1765 / 1765 100 / 100 515 / 515 Output Total 300 / 300 1500 / 1500 200 / 200 Balance 1465 / 1465 -1400 / -1400 315 / 315 Weight 96.6 kg Intake: IV 565 / 565 100 / 100 515 / 515 Vancomycin Inj 1,500 MG In NS 515 / 515 515 / 515 Inj 500 ML @ 250 mls/hr IV.SIG Q12H [facility] Rx#:[id number] Ancef 2 GM Premix Inj 2 gm In 50 / 50 100 / 100 50 ml @ 200 mls/hr IV.SIG Q8H [facility] Rx#:[id number] Oral 1200 / 1200 Output: Urine 300 / 300 1500 / 1500 200 / 200 Other: Date of Last Bowel Movement 02/08/18 02/10/18 14:45 Blood - Peripheral Aerobic Blood Culture - Preliminary No growth in 3 days 02/10/18 14:45 Blood - Peripheral Anaerobic Blood Culture - Preliminary No growth in 3 days 02/10/18 14:50 Blood - Peripheral Aerobic Blood Culture - Preliminary No growth in 3 days 02/10/18 14:50 Blood - Peripheral Anaerobic Blood Culture - Preliminary No growth in 3 days 02/11/18 11:30 Tissue - Incision Gram Stain - Final 02/11/18 11:30 Tissue - Incision Wound Culture - Preliminary Staphylococcus coag negative 02/11/18 11:30 Tissue - Incision Fungal Smear - Final No fungal elements seen 02/11/18 11:30 Tissue - Incision Fungal Culture - Pending 02/11/18 11:30 Tissue - Incision Acid Fast Bacilli Smear - Final No acid fast bacilli seen 02/11/18 11:30 Tissue - Incision Mycobacterial Culture - Pending 02/11/18 11:30 Tissue - Incision Gram Stain - Final 02/11/18 11:30 Tissue - Incision Wound Culture - Preliminary Staphylococcus coag negative 02/11/18 11:30 Tissue - Incision Fungal Smear - Final No fungal elements seen 02/11/18 11:30 Tissue - Incision Fungal Culture - Pending 02/11/18 11:30 Tissue - Incision Gram Stain - Final 02/11/18 11:30 Tissue - Incision Wound Culture - Preliminary Staphylococcus species 02/11/18 11:30 Tissue - Incision Acid Fast Bacilli Smear - Final No acid fast bacilli seen 02/11/18 11:30 Tissue - Incision Mycobacterial Culture - Pending 02/11/18 11:30 Tissue - Incision Acid Fast Bacilli Smear - Final No acid fast bacilli seen 02/11/18 11:30 Tissue - Incision Mycobacterial Culture - Pending 02/10/18 14:40 Wound - Leg Gram Stain - Final 02/10/18 14:40 Wound - Leg Wound Culture - Final 02/11/18 11:30 Tissue - Incision Fungal Smear - Final No fungal elements seen 02/11/18 11:30 Tissue - Incision Fungal Culture - Pending Lab - Chemistry Results 02/11/18 02/11/18 02/11/18 13:57 16:30 20:03 POC Glucose 149 H 267 H 213 H 02/12/18 02/12/18 02/12/18 07:14 11:26 16:21 POC Glucose 188 H 174 H 153 H 02/12/18 02/13/18 02/13/18 22:09 08:24 11:48 POC Glucose 140 H 121 H 119 H Imaging: ITS Impressions Chest X-Ray 02/10/18 14:41 CONCLUSION: 1. Cardiomegaly. 2. Minimal increased interstitial markings bilaterally consistent with possible minimal congestion. Clinical correlation is recommended. Knee CT 02/10/18 14:41 CONCLUSION: 1. Healing comminuted fracture deformity of the proximal tibia status post open rigid internal fixation with lateral screw plate fixation device in place. There is diffuse patchy sclerosis and lucency with indistinct fracture lines. The findings could indicate infection. 2. Healing comminuted fracture of the proximal fibula. 3. Cirrhosis as well as numerous small patchy lucencies in the distal femur and patella. 4. Joint effusion and extensive soft tissue swelling. Tibia/Fibula X-Ray 02/10/18 14:41 CONCLUSION: 1. Status post open rigid internal fixation of a proximal tibial fracture with patchy sclerosis and lucency which is nonspecific. 2. Deformity of the proximal fibula as well. 3. Patchy sclerosis involving the distal femur. Knee X-Ray 02/11/18 00:00 CONCLUSION: Status post hardware removal as described above. Physical Exam: GENERAL: Well-nourished well-developed, not in acute distress SKIN: Cool and dry, no generalized rash HEAD: Atraumatic. Normocephalic. No temporal or scalp tenderness. EYES: Pupils equal round and reactive. Scleral icterus. No injection or drainage. No petechia ENT: Nothing abnormal detected NECK: Trachea midline. Supple, nontender, no meningeal signs. CARDIOVASCULAR: HS audible. RESPIRATORY: Clear to auscultation bilaterally. GASTROINTESTINAL: Abdomen soft nontender. MUSCULOSKELETAL: Right extremity in postop surgical dressing. NEUROLOGICAL: Alert oriented 3. Nonfocal. Psych cooperative IV line sites ok. Assessment and Plan - Plan Possible sepsis present on admission with history of fever 103 as well as elevated white count. Source of infection is right septic arthritis, prosthetic knee joint infection Recent history of being treated with IV antibiotics exam PICC line for right knee prosthetic joint Recommendations: DC cefazolin IV Continue vancomycin IV target trough 15-24 prosthetic knee joint infection Follow cultures Follow clinically Discussed with patient Discussed with RN. dw CM will need IV antibiotics await cultures. Addendum: Upon review of note the correct documentation of procedure is Removal of deep hardware, irrigation and debridement of right tibia, placement of antibiotic beads.
[2018-02-13] MEDS ORDERED: Vancomycin Consult Pharmacy OTHER PRN (14:07)
[2018-02-13] MEDS: Vancomycin Inj 1,250 MG in Sodium Chlor 0.9% Inj 250 ML IV.SIG SCH (17:12)
[2018-02-13] MEDS: Finasteride 5 MG Tablet PO SCH (22:11)
[2018-02-14] MEDS: Vancomycin Inj 1,250 MG in Sodium Chlor 0.9% Inj 250 ML IV.SIG SCH (04:16)
[2018-02-14] MEDS: Gabapentin 300 MG Capsule PO SCH ×3 (06:09→22:01)
--- NOTE | 2018-02-14 08:25 | P.PN ---
Subjective Interval history: no complains- slept well overnight no pain Physical Exam Vital signs: Vital Signs 02/13/18 12:00 02/13/18 15:34 02/13/18 17:23 Temperature 98.1 F 98 F Pulse Rate 57 L 57 L Respiratory Rate 20 18 Blood Pressure 130/67 101/57 L Pulse Oximetry 94 L 98 98 02/13/18 20:00 02/14/18 04:00 02/14/18 08:00 Temperature 97.8 F 97.2 F L 98 F Pulse Rate 58 L 59 L 52 L Respiratory Rate 20 18 18 Blood Pressure 109/59 L 100/55 L 113/57 L Pulse Oximetry 92 L 97 98 Intake & Output 02/13/18 02/14/18 02/14/18 18:59 06:59 18:59 Intake Total 1427.5 / 1427.5 262.5 / 262.5 Output Total 200 / 200 800 / 800 Balance 1227.5 / 1227.5 -537.5 / -537.5 Weight 96.8 kg Intake: IV 827.5 / 827.5 262.5 / 262.5 Vancomycin Inj 1,250 MG In NS 262.5 / 262.5 262.5 / 262.5 Inj 250 ML @ 250 mls/hr IV.SIG Q12H [facility] Rx#:[id number] Vancomycin Inj 1,500 MG In NS 515 / 515 Inj 500 ML @ 250 mls/hr IV.SIG Q12H [facility] Rx#:[id number] Ancef 2 GM Premix Inj 2 gm In 50 / 50 50 ml @ 200 mls/hr IV.SIG Q8H [facility] Rx#:[id number] Oral 600 / 600 Output: Urine 200 / 200 800 / 800 Other: # Voids 1 Date of Last Bowel Movement 02/14/18 Narrative: awake and alert no distress anicteric lungs- no rales regular rhythm abdomen soft, nontender RLE- post op dressing CKS in place sensory itact, moves all extremities spontaenosly Results - Labs CBC & Chem 7: 02/11/18 05:58 02/11/18 05:58 Laboratory Results - last 24 hr 02/13/18 02/13/18 02/13/18 08:24 11:48 16:57 POC Glucose 121 H 119 H 144 H 02/13/18 22:17 POC Glucose 118 H Microbiology 02/11/18 11:30 Tissue - Incision Gram Stain - Final 02/11/18 11:30 Tissue - Incision Wound Culture - Preliminary Staphylococcus coag negative 02/11/18 11:30 Tissue - Incision Gram Stain - Final 02/11/18 11:30 Tissue - Incision Wound Culture - Preliminary Staphylococcus coag negative 02/11/18 11:30 Tissue - Incision Gram Stain - Final 02/11/18 11:30 Tissue - Incision Wound Culture - Preliminary Staphylococcus species 02/10/18 14:45 Blood - Peripheral Aerobic Blood Culture - Preliminary No growth in 3 days 02/10/18 14:45 Blood - Peripheral Anaerobic Blood Culture - Preliminary No growth in 3 days 02/10/18 14:50 Blood - Peripheral Aerobic Blood Culture - Preliminary No growth in 3 days 02/10/18 14:50 Blood - Peripheral Anaerobic Blood Culture - Preliminary No growth in 3 days 02/11/18 11:30 Tissue - Incision Fungal Smear - Final No fungal elements seen 02/11/18 11:30 Tissue - Incision Acid Fast Bacilli Smear - Final No acid fast bacilli seen 02/11/18 11:30 Tissue - Incision Fungal Smear - Final No fungal elements seen 02/11/18 11:30 Tissue - Incision Acid Fast Bacilli Smear - Final No acid fast bacilli seen 02/11/18 11:30 Tissue - Incision Acid Fast Bacilli Smear - Final No acid fast bacilli seen - Procedures 02/11 Removal of deep hardware, irrigation and debridement of right tibia, placement of antibiotic beads. Assessment and Plan - Assessment (1) Wound infection after surgery Code(s): T81.49XA - Infection following a procedure, other surgical site, initial encounter Status: Acute - Plan 67-year-old man with 1.septic L knee with hardware in place S/P Removal of deep hardware, irrigation and debridement of right tibia, placement of antibiotic beads 02/11 -Currently on vancomycin - Perioperaitive- staph coag negative- final sensititivy pending- ID ff along with us -PT daily - [place] PRN - patient states had had PICC line in the past for OP IV antibiotics- will likely need assisted IV antibiotics- will need PICC prior to DC for OP 2. CAD with multiple stents, HTN CMP- known EF 37% history- not in failure - restart ASA and Plavix - Continue Entresto, carvedilol, Lasix , amlodipine. Aldactone 3. COPD JUAN - on CPAP hs - Not in acute exacerbation - Supplemental O2 PRN, DuoNeb as needed - requesting for 02 concentrator during CPAP use at night-- states he sleeps better with it - will d/w RT - will do a walk test prior to DC 4. DM- good readings - patient states uses Lantus in the past and has not been on it- lost weight - he insists on regular diet- and will not eat if we put him on ADA diet - on metformin 1 gm bid - SSI with AccuChecks per protocol 5. HLD -Continue home statin 6. History of Bladder cancer - On Proscar 7. Depression - in good spirits- very motivated - Continue home meds Lovenox for DVT prophylaxis DC plamnning- will need senior living IV antibiotics- will likely need PICC
[2018-02-14] MEDS: Insulin NovoLOG Aspart Correctional Sugar Inj SQ SCH ×4 (08:56→23:18)
[2018-02-14] MEDS: Calcium/Vitamin D 250/125 MG Tablet PO SCH ×3 (09:02→17:00)
[2018-02-14] MEDS: Furosemide 40 MG Tablet PO SCH (09:02)
[2018-02-14] MEDS: Senna/Docusate Sodium 8.6/50 MG Tablet PO SCH ×2 (09:02→20:35)
[2018-02-14] MEDS: Spironolactone 25 MG Tablet PO SCH (09:03)
[2018-02-14] MEDS: Tiotropium Bromide 18 MCG/ACT Inhaler INH SCH (09:10)
[2018-02-14] MEDS: Enoxaparin Inj 30 MG/0.3 ML Syringe SQ SCH (11:04)
[2018-02-14] MEDS: DAPTOmycin Inj 1,000 MG in Sodium Chlor 0.9% Inj 100 ML IV.SIG SCH (13:42)
[2018-02-14] MEDS: amLODIPine 10 MG Tablet PO SCH (14:44)
[2018-02-14] MEDS: Finasteride 5 MG Tablet PO SCH (20:34)
[2018-02-15] MEDS ORDERED: Pharmacy Ordered Lab Info OTHER ONE (03:45)
[2018-02-15] MEDS: Gabapentin 300 MG Capsule PO SCH ×3 (05:48→22:39)
--- NOTE | 2018-02-15 09:09 | P.PN ---
Subjective Interval history: awake and alert no fever no diarrhea now states having incomplete bladder emptying sensation, interrupted flow in On finasteride FF BY Urology- Dr. Charles as OP Physical Exam Vital signs: Vital Signs 02/14/18 12:00 02/14/18 13:06 02/14/18 16:00 Temperature 97.4 F L 98.5 F Pulse Rate 58 L 64 Respiratory Rate 18 18 Blood Pressure 100/49 L 111/56 L Pulse Oximetry 99 94 L 93 L 02/14/18 20:00 02/15/18 00:00 02/15/18 04:00 Temperature 98.4 F 97.8 F 98.1 F Pulse Rate 81 56 L 55 L Respiratory Rate 18 18 18 Blood Pressure 128/60 100/58 L 110/54 L Pulse Oximetry 93 L 95 96 02/15/18 07:54 Temperature 98.1 F Pulse Rate 64 Respiratory Rate 18 Blood Pressure 103/57 L Pulse Oximetry 95 Intake & Output 02/14/18 02/15/18 02/15/18 18:59 06:59 18:59 Intake Total 1180 / 1180 Output Total 1600 / 1600 700 / 700 Balance -420 / -420 -700 / -700 Weight 96.8 kg Intake: IV 100 / 100 Cubicin Inj 1,000 MG In NS Inj 100 / 100 100 ML @ 200 mls/hr IV.SIG Q24H [facility] Rx#:[id number] Oral 1080 / 1080 Output: Urine 1600 / 1600 700 / 700 Other: Date of Last Bowel Movement 02/14/18 02/14/18 Narrative: awake and alert no distress anicteric lungs- no rales regular rhythm abdomen soft, nontender RLE- post op dressing CKS in place sensory intact, moves all extremities spontaneously Results - Labs CBC & Chem 7: 02/11/18 05:58 02/11/18 05:58 Laboratory Results - last 24 hr 02/14/18 02/14/18 02/14/18 11:09 13:30 17:59 POC Glucose 122 H 142 H Total Creatine Kinase 33 L 02/14/18 02/15/18 20:48 09:01 POC Glucose 143 H 118 H Total Creatine Kinase Microbiology 02/10/18 14:45 Blood - Peripheral Aerobic Blood Culture - Preliminary No growth in 4 days 02/10/18 14:45 Blood - Peripheral Anaerobic Blood Culture - Preliminary No growth in 4 days 02/10/18 14:50 Blood - Peripheral Aerobic Blood Culture - Preliminary No growth in 4 days 02/10/18 14:50 Blood - Peripheral Anaerobic Blood Culture - Preliminary No growth in 4 days 02/11/18 11:30 Tissue - Incision Gram Stain - Final 02/11/18 11:30 Tissue - Incision Wound Culture - Final Staphylococcus epidermidis 02/11/18 11:30 Tissue - Incision Gram Stain - Final 02/11/18 11:30 Tissue - Incision Wound Culture - Final Staphylococcus epidermidis 02/11/18 11:30 Tissue - Incision Gram Stain - Final 02/11/18 11:30 Tissue - Incision Wound Culture - Final Staphylococcus epidermidis - Procedures 02/11 Removal of deep hardware, irrigation and debridement of right tibia, placement of antibiotic beads. Assessment and Plan - Assessment (1) Wound infection after surgery Code(s): T81.49XA - Infection following a procedure, other surgical site, initial encounter Status: Acute - Plan 67-year-old man with 1.septic L knee with hardware in place - S. epidermidis S/P Removal of deep hardware, irrigation and debridement of right tibia, placement of antibiotic beads 02/11 -vancomycin DC. Change to cubicin 02/14 -PT daily - [place] PRN - patient states had had PICC line in the past for OP IV antibiotics- will likely need alf IV antibiotics- - will need PICC prior to DC for OP 2. CAD with multiple stents, HTN CMP history- known EF 37% - not in failure - restart ASA and Plavix - Continue Entresto, carvedilol, Lasix , amlodipine. Aldactone 3. COPD JUAN - on CPAP hs - Not in acute exacerbation - Supplemental O2 PRN, DuoNeb as needed - requesting for 02 concentrator during CPAP use at night-- states he sleeps better with it - will d/w RT - will do a walk test prior to DC 4. DM- good readings - patient states uses Lantus in the past and has not been on it- lost weight - he insists on regular diet- and will not eat if we put him on ADA diet - on metformin 1 gm bid - SSI with AccuChecks per protocol 5. HLD -Continue home statin 6. BPH- states incomplete bladder emptying sensation- History of Bladder cancer - Continue home Proscar. - will do a postvoiding catheterization today- check postvoiding residual. Consider flomax - consider consulting his urologist in am - ff by Dr. Charles as OP 7. Depression - in good spirits- very motivated - Continue home meds Lovenox for DVT prophylaxis DC plamnning- will need termite technician IV antibiotics- will likely need PICC
[2018-02-15] MEDS: Insulin NovoLOG Aspart Correctional Sugar Inj SQ SCH ×4 (09:10→20:35)
[2018-02-15] MEDS: Spironolactone 25 MG Tablet PO SCH (09:49)
[2018-02-15] MEDS: amLODIPine 10 MG Tablet PO SCH (09:49)
[2018-02-15] MEDS: Furosemide 40 MG Tablet PO SCH (09:49)
[2018-02-15] MEDS: Senna/Docusate Sodium 8.6/50 MG Tablet PO SCH ×2 (09:50→20:26)
[2018-02-15] MEDS: Tiotropium Bromide 18 MCG/ACT Inhaler INH SCH (09:50)
[2018-02-15] MEDS: Calcium/Vitamin D 250/125 MG Tablet PO SCH ×3 (09:50→17:18)
[2018-02-15] MEDS: Enoxaparin Inj 30 MG/0.3 ML Syringe SQ SCH (13:02)
[2018-02-15] MEDS: DAPTOmycin Inj 1,000 MG in Sodium Chlor 0.9% Inj 100 ML IV.SIG SCH (13:03)
[2018-02-15] MEDS: Finasteride 5 MG Tablet PO SCH (20:26)
[2018-02-16] MEDS: Gabapentin 300 MG Capsule PO SCH ×2 (06:15→13:14)
--- NOTE | 2018-02-16 07:07 | P.PNOP ---
Subjective Interval history: Resting comfortably with no new complaints. Physical Exam Vital signs: Vital Signs 02/15/18 07:54 02/15/18 08:00 02/15/18 12:00 Temperature 98.1 F 98.7 F Pulse Rate 64 67 Respiratory Rate 18 18 Blood Pressure 103/57 L 102/52 L Pulse Oximetry 95 97 94 L 02/15/18 16:00 02/15/18 20:00 02/16/18 00:00 Temperature 98.5 F 98.5 F 98.3 F Pulse Rate 66 74 67 Respiratory Rate 18 18 18 Blood Pressure 112/58 L 100/58 L 92/55 L Pulse Oximetry 96 95 98 02/16/18 04:00 Temperature 98.2 F Pulse Rate 76 Respiratory Rate 18 Blood Pressure 94/52 L Pulse Oximetry 100 Intake & Output 02/15/18 02/16/18 02/16/18 18:59 06:59 18:59 Intake Total 100 / 100 Output Total 550 / 550 325 / 325 Balance -450 / -450 -325 / -325 Weight 96.8 kg Intake: IV 100 / 100 Cubicin Inj 1,000 MG In NS Inj 100 / 100 100 ML @ 200 mls/hr IV.SIG Q24H [facility] Rx#:[id number] Output: Urine 550 / 550 325 / 325 Other: # Voids 1 Date of Last Bowel Movement 02/14/18 02/15/18 Narrative: Right lower extremity: Clean dry dressings intact. Dressings taken down showing incision that is well approximated and healing well with mild drainage. Drainage is serous in nature. Intact sensation distally with positive foot drop. good capillary refills and distal pulses Results - Labs CBC & Chem 7: 02/11/18 05:58 02/11/18 05:58 Laboratory Results - last 24 hr 02/15/18 02/15/18 02/15/18 09:01 10:48 16:35 POC Glucose 118 H 180 H 112 H 02/15/18 20:28 POC Glucose 163 H Microbiology 02/10/18 14:45 Blood - Peripheral Aerobic Blood Culture - Final No growth in 5 days 02/10/18 14:45 Blood - Peripheral Anaerobic Blood Culture - Final No growth in 5 days 02/10/18 14:50 Blood - Peripheral Aerobic Blood Culture - Final No growth in 5 days 02/10/18 14:50 Blood - Peripheral Anaerobic Blood Culture - Final No growth in 5 days - Procedures 02/11 Removal of deep hardware, irrigation and debridement of right tibia, placement of antibiotic beads. 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 awaiting infectious Dz recs -f/u with Jose or MARILIN in 2 weeks [facility] Prescription Drug Monitoring Database has been queried and verified prior to prescribing the controlled substance. Acute pain exception. This patient has normal, predicted, physiological, and time limited response to an adverse mechanical stimulus associated with surgery, trauma, or acute illness as described in my notes. There is a lack of alternative treatment options other than to include the prescribed narcotic treatment for this condition.
--- NOTE | 2018-02-16 08:22 | P.PN ---
Subjective Interval history: no knee pain no diarrhea states incomplete bladder empyting sensation- states this is how his Bladder cancer presented- no gross hematuria requesting to see his Urologist Dr. Charles Physical Exam Vital signs: Vital Signs 02/15/18 12:00 02/15/18 16:00 02/15/18 20:00 Temperature 98.7 F 98.5 F 98.5 F Pulse Rate 67 66 74 Respiratory Rate 18 18 18 Blood Pressure 102/52 L 112/58 L 100/58 L Pulse Oximetry 94 L 96 95 02/16/18 00:00 02/16/18 04:00 Temperature 98.3 F 98.2 F Pulse Rate 67 76 Respiratory Rate 18 18 Blood Pressure 92/55 L 94/52 L Pulse Oximetry 98 100 Intake & Output 02/15/18 02/16/18 02/16/18 18:59 06:59 18:59 Intake Total 100 / 100 Output Total 550 / 550 325 / 325 Balance -450 / -450 -325 / -325 Weight 96.8 kg Intake: IV 100 / 100 Cubicin Inj 1,000 MG In NS Inj 100 / 100 100 ML @ 200 mls/hr IV.SIG Q24H [facility] Rx#:[id number] Output: Urine 550 / 550 325 / 325 Other: # Voids 1 Date of Last Bowel Movement 02/14/18 02/15/18 Narrative: awake and alert no distress anicteric lungs- no rales regular rhythm abdomen soft, nontender RLE- post op dressing CKS in place, sensory intact, moves all extremities spontaenosly Results - Labs CBC & Chem 7: 02/16/18 10:50 02/16/18 10:50 Laboratory Results - last 24 hr 02/15/18 02/15/18 02/15/18 09:01 10:48 16:35 POC Glucose 118 H 180 H 112 H 02/15/18 20:28 POC Glucose 163 H Microbiology 02/10/18 14:45 Blood - Peripheral Aerobic Blood Culture - Final No growth in 5 days 02/10/18 14:45 Blood - Peripheral Anaerobic Blood Culture - Final No growth in 5 days 02/10/18 14:50 Blood - Peripheral Aerobic Blood Culture - Final No growth in 5 days 02/10/18 14:50 Blood - Peripheral Anaerobic Blood Culture - Final No growth in 5 days - Procedures 02/11 Removal of deep hardware, irrigation and debridement of right tibia, placement of antibiotic beads. Assessment and Plan - Assessment (1) Wound infection after surgery Code(s): T81.49XA - Infection following a procedure, other surgical site, initial encounter Status: Acute - Plan 67-year-old man with 1.septic L knee with hardware in place - Staph. epidermidis on culture S/P Removal of deep hardware, irrigation and debridement of right tibia, placement of antibiotic beads 02/11 -Currently on vancomycin -ID ff along with us -PT daily - [place] PRN - patient states had had PICC line in the past for OP IV antibiotics- will likely need mcc IV antibiotics- will need PICC prior to DC for OP - seen by Infer this am- reported- incision well healed 2. CAD with multiple stents, HTN CMP- known EF 37% history- not in failure - restart ASA and Plavix - Continue Entresto, carvedilol, Lasix , amlodipine. Aldactone - decrease Amlodipine to 5 mg daily 3. COPD JUAN - on CPAP hs - Not in acute exacerbation - Supplemental O2 PRN, DuoNeb as needed - requesting for 02 concentrator during CPAP use at night-- states he sleeps better with it - will d/w RT - will do a walk test prior to DC 4. DM- good readings - patient states uses Lantus in the past and has not been on it- lost weight - he insists on regular diet- and will not eat if we put him on ADA diet - on metformin 1 gm bid - SSI with AccuChecks per protocol 5. HLD -Continue home statin 6. History of Bladder cancer- with incomplete bladder empyting sensation- refused post voiding residual urine check - requesting to see his Urologist - Dr. Charles - on Proscar/flomax 7. Depression - in good spirits- very motivated - Continue home meds Lovenox for DVT prophylaxis DC plamnning- will need senior care IV antibiotics- will likely need PICC add- check post voiing residual only 3 cc
[2018-02-16] MEDS ORDERED: amLODIPine 5 MG Tablet PO SCH (09:00)
[2018-02-16 09:12] VITALS: RESP 20
[2018-02-16] MEDS: Insulin NovoLOG Aspart Correctional Sugar Inj SQ SCH ×3 (09:29→17:04)
[2018-02-16] MEDS: Spironolactone 25 MG Tablet PO SCH (09:31)
[2018-02-16] MEDS: Calcium/Vitamin D 250/125 MG Tablet PO SCH ×2 (09:31→13:14)
[2018-02-16] MEDS: Furosemide 40 MG Tablet PO SCH (09:32)
[2018-02-16] MEDS: Senna/Docusate Sodium 8.6/50 MG Tablet PO SCH (09:32)
[2018-02-16] MEDS: Tiotropium Bromide 18 MCG/ACT Inhaler INH SCH (09:33)
--- NOTE | 2018-02-16 10:02 | P.DCO ---
Post Hospital Infusion Therapy - Infusion Therapy Location of Infusion Therapy: Home Health Care IV Infusion Order Appointment Date: 02/16/18 - Patient Information Patient Weight: 96.8 kg - Diagnosis (1) Osteomyelitis of right knee region Code(s): M86.9 - Osteomyelitis, unspecified - Administer Medication Daptomycin Directions: q 24 hours Additional Dosing Instructions: Daptomycin 800 mg IV every 24 hours. Start Treatment: 02/16/18 Stop Treatment: 03/30/18 - Additional Information Venous Access: PICC Line Additional Instructions: [x] Peripheral flush and dressing changes per protocol [x] Implanted port and central ground crew lines person: * Implanted port: 10 ml Normal Saline followed by 5 ml Heparin 100 units/ml Heparin flush after each use and monthly to maintain. [] May leave port accessed during therapy. [] May leave peripheral site accessed for duration of therapy. [x] If patient has SOB or respiratory distress, check oxygen saturation. If less than 90% or clinical signs of respiratory distress, administer oxygen at 2 L/min. via nasal cannula and notify physician. [x] Anaphylaxis/Reaction orders: * Stop infusion. * Keep IV line open with saline flush. * Notify physician. * Monitor vital signs every 15 minutes until symptoms resolve. * Check Oxygen saturation; Oxygen at 2 L/min. via nasal cannula if less than 90% or clinical signs of respiratory distress. * Administer diphenhydramine (Benadryl) 25 mg IV STAT, (unless patient has received as pre-med). May repeat once, if necessary. * Solu-Cortef 250 mg IVP over 30-60 seconds, use 100 mg vials for each dissolution. * Epinephrine (1mg/1 ml) 0.3 mg subcutaneously or IVP now with any signs of respiratory distress. * Check with physician for new additional pre-med orders if patient is re- challenged or re-treated. [x] May remove PICC line when treatment complete, after confirming with Physician. [x] If the patient is admitted to the hospital, the ED, or transferred via [facility] , complete transfer form including medication reconciliation order sheet. Weekly Labs: CBC w/diff, Creatinine, CRP, LFTs (Hepatic Function Test), Serum CK Levels Case Management Consult: Yes Additional Information: Please draw weekly labs, fax labs to numbers below. If any abnormal labs or change in clinical condition please contact at number below: Dr.Reba Plascencia office: Address: [address] [place] [address] - Patient Information Allergies penicillin G Allergy (Unknown, Verified 12/05/17 10:59) childhood reaction unknown reaction Penicillins Allergy (Unknown, Verified 12/05/17 08:09) childhood reaction
--- NOTE | 2018-02-16 10:04 | P.PNID ---
Infectious Disease Brief Note Daptomycin medically necessary as patient failed 6 week course of IV Vanco and also Vanco AMADOR increased to 2 on repeat culture indicating creeping of AMADOR. Vital Signs - 24 hr 02/15/18 12:00 02/15/18 16:00 02/15/18 20:00 Temperature 98.7 F 98.5 F 98.5 F Pulse Rate 67 66 74 Respiratory Rate 18 18 18 Blood Pressure 102/52 L 112/58 L 100/58 L Pulse Oximetry 94 L 96 95 02/16/18 00:00 02/16/18 04:00 02/16/18 08:00 Temperature 98.3 F 98.2 F 98.1 F Pulse Rate 67 76 69 Respiratory Rate 18 18 20 Blood Pressure 92/55 L 94/52 L 98/55 L Pulse Oximetry 98 100 95 Laboratory Results - last 24 hr 02/15/18 02/15/18 02/15/18 10:48 16:35 20:28 POC Glucose 180 H 112 H 163 H 02/16/18 08:42 POC Glucose 185 H
--- NOTE | 2018-02-16 10:09 | P.CONURO ---
History of Present Illness Service: Urology Consult date: 02/16/18 Requesting Physician: Adrianna Bernstein Reason for Consult: Hx Bladder Ca and BPH with incomplete bladder emptying Primary Care Provider: No Primary Care Physician Family Provider: No Primary Care Physician Chief Complaint: Voiding issues History of Present Illness: 67y.o m with other medical issues, admitted due to a septic L knee with hardware in place - Staph. epidermidis on culture S/P Removal of deep hardware, irrigation and debridement of right tibia, placement of antibiotic beads 02/11. ID is on board. He also has h/o Bladder cancer and BPH with LUTS and currently c/o some voiding difficulties and feeling of incomplete bladder emptying. Refused bladder scan as per primary team note. Urology was consulted. He is currently on Flomax and Proscar Pt was seen last time in our office on 03/[address] Charles for evaluation regarding history of bladder cancer and significant lower urinary tract symptoms. Based on his history in 2008 he had bladder cancer, was treated with resection in [place]. He then developed recurrence in 2014 which was resected he believes at [facility]. He has not received any treatment since 2014 for his bladder cancer and was scheduled for Cystoscopy. it was done on 2016 with no findings of recurrent bladder tumors but he found to have obstructive BPH. He also had CTU at that time, showed left benign renal cyst and significantly enlarged prostate. He was started on Tamsulosin at that time due to those findings and pt's c/o LUTS. For some reason his PCP stopped it and started only Proscar. He does have a family history of cancer as well as prostate cancer in his grandfather. PVR a year ago was 144cc. Review of Systems All other systems reviewed negative except as stated in HPI PMFSH - History History Provided By: Patient - Medical History Medical History: Medical History (Last Reviewed 02/16/18 @ 08:25 by Sushma Crane) Tibial plateau fracture, right (Chronic) Bladder cancer COPD (chronic obstructive pulmonary disease) Cellulitis of right lower extremity Diabetes Hyperlipidemia associated with type 2 diabetes mellitus Hypertension Ischemic cardiomyopathy Myocardial infarction Tibial plateau fracture - Surgical History Surgical History: Surgical History (Last Reviewed 02/16/18 @ 08:25 by Sushma Crane) H/O cardiac catheterization History of open reduction and internal fixation (ORIF) procedure - Family History Family History: Family History (Last Reviewed 02/16/18 @ 08:25 by Sushma Crane) Father Pancreatic cancer Brother Coronary artery disease - Tobacco History Second Hand Smoke Exposure: No Tobacco Use In Past 30 Days: Yes Smoking Status: Current every day smoker Tobacco Type: Cigars - Alcohol History How Often Do You Have a Drink Containing Alcohol: Monthly or less - Substance Use History Substance History: No History of Abuse - Travel History Recent Travel in the [place] Within the Last 8 Weeks: No Recent Travel Out of the Country Within the Last 8 Weeks: No - Immunization History Tetanus Immunization: <5 Years Hx Influenza Vaccine This Season: No Medications and Allergies Active Medications: Active Medications Acetaminophen (Tylenol) 650 mg PO Q4H PRN PRN Reason: Temp > 100.4 Hydrocodone Bitart/Acetaminophen (Sandy 10/325) 1 tab PO Q4H PRN PRN Reason: Pain Scale 3-10 Al Hydroxide/Mg Hydroxide (Milk Of Magnpatricia Liq) 30 ml PO Q12H PRN PRN Reason: Mild Constipation Albuterol (Duoneb Neb (Prn)) 1 ampul NEB Q2HR NEB PRN PRN Reason: sob/wheezing Last Admin: 02/12/18 22:13 Dose: 1 ampul Albuterol (Ventolin Hfa Inh) 2 puff INH Q6H [facility] Last Admin: 02/16/18 06:28 Dose: Not Given Amlodipine Besylate (Norvasc) 5 mg PO DAILY [facility] Last Admin: 02/16/18 09:31 Dose: 5 mg Aspirin (Aspirin Chew) 81 mg PO DAILY [facility] Last Admin: 02/16/18 09:31 Dose: 81 mg Atorvastatin Calcium (Lipitor) 40 mg PO HS [facility] Last Admin: 02/15/18 20:26 Dose: 40 mg Bisacodyl (Dulcolax Supp) 10 mg RECTAL DAILY PRN PRN Reason: SEVERE CONSITIPATION Calcium/Vitamin D (Oscal With D 250/125 Mg) 1 tab PO TID [facility] Last Admin: 02/16/18 09:31 Dose: 1 tab Carvedilol (Coreg) 3.125 mg PO BID [facility] Last Admin: 02/16/18 09:30 Dose: Not Given Chlordiazepoxide (Librium) 5 mg PO DAILY [facility] Last Admin: 02/16/18 09:32 Dose: 5 mg Citalopram Hydrobromide (Celexa) 40 mg PO DAILY [facility] Last Admin: 02/16/18 09:32 Dose: 40 mg Clopidogrel Bisulfate (Plavix) 75 mg PO DAILY [facility] Last Admin: 02/16/18 09:31 Dose: 75 mg Dextrose (D50w Vial) 50 ml IV.PUSH UNSCH PRN PRN Reason: PER HYPOGLYCEMIA PROTOCOL Diphenhydramine HCl (Benadryl) 25 mg PO Q6H PRN PRN Reason: ITCHING Enoxaparin Sodium (Lovenox Inj) 30 mg SQ Q24H [facility] Last Admin: 02/15/18 13:02 Dose: 30 mg Finasteride (Proscar) 5 mg PO HS [facility] Last Admin: 02/15/18 20:26 Dose: 5 mg Furosemide (Lasix) 40 mg PO DAILY [facility] Last Admin: 02/16/18 09:32 Dose: 40 mg Gabapentin (Neurontin) 300 mg PO Q8HR [facility] Last Admin: 02/16/18 06:15 Dose: 300 mg Glucagon (Glucagon Inj) 1 mg OTHER PRN PRN PRN Reason: for Hypoglycemia Protocol Daptomycin 1,000 mg/ Sodium (Chloride) 100 mls @ 200 mls/hr IV.SIG Q24H [facility] Last Infusion: 02/15/18 13:35 Dose: Infused Insulin Aspart (Novolog Insulin Correctional Sugar Inj) 0 unit SQ ACHS [facility]; Protocol Last Admin: 02/16/18 09:29 Dose: 1 unit Lactulose (Lactulose Liq) 30 ml PO DAILY PRN PRN Reason: SEVERE CONSITIPATION Metformin HCl (Glucophage) 1,000 mg PO BIDPC [facility] Last Admin: 02/16/18 09:32 Dose: 1,000 mg Ondansetron HCl (Zofran Odt) 4 mg PO Q6H PRN PRN Reason: NAUSEA OR VOMITING Ondansetron HCl (Zofran Inj) 4 mg IV.PUSH Q6H PRN PRN Reason: NAUSEA Pramipexole Dihydrochloride (Mirapex) 0.75 mg PO HS [facility] Last Admin: 02/15/18 20:26 Dose: 0.75 mg Sacubitril/Valsartan (Entresto 49 Mg/51 Mg) 1 tab PO BID [facility] Last Admin: 02/16/18 09:32 Dose: 1 tab Senna/Docusate Sodium (Ml-Colace) 1 tab PO BID [facility] Last Admin: 02/16/18 09:32 Dose: 1 tab Sennosides (Senokot) 17.2 mg PO Q12H PRN PRN Reason: Moderate Constipation Sodium Chloride (Ns Flush) 2 ml IV.FLUSH BID [facility] Last Admin: 02/16/18 09:33 Dose: 2 ml Sodium Chloride (Ns Flush) 2 ml IV.FLUSH PRN PRN PRN Reason: FLUSH AFTER USING IV ACCESS Spironolactone (Aldactone) 25 mg PO DAILY [facility] Last Admin: 02/16/18 09:31 Dose: 25 mg Tamsulosin HCl (Flomax) 0.4 mg PO HS [facility] Last Admin: 02/15/18 20:26 Dose: 0.4 mg Temazepam (Restoril) 15 mg PO HS PRN PRN Reason: INSOMNIA Tiotropium [place] (Spiriva 18 Mcg Inh) 18 mcg INH DAILY [facility] Last Admin: 02/16/18 09:33 Dose: Not Given Vitamin D (Vitamin D3) 5,000 unit PO DAILY [facility] Last Admin: 02/16/18 09:32 Dose: 5,000 unit Allergies Allergy/AdvReac Type Severity Reaction Status Date / Time penicillin G Allergy Unknown childhood Verified 12/05/17 10:59 reaction Penicillins Allergy Unknown childhood Verified 12/05/17 08:09 reaction Home Medications Medication Instructions Recorded Confirmed Type amlodipine [Norvasc] 10 mg PO DAILY 12/04/17 02/10/18 History aspirin 81 mg PO QPM 12/04/17 02/10/18 History atorvastatin [Lipitor] 40 mg PO HS 12/04/17 02/10/18 History carvedilol [Coreg] 3.125 mg PO BID 12/04/17 02/10/18 History chlordiazepoxide HCl 5 mg PO DAILY 12/04/17 02/10/18 History cholecalciferol (vitamin D3) 2,000 unit PO DAILY 12/04/17 02/10/18 History [Vitamin D3] citalopram [Celexa] 40 mg PO DAILY 12/04/17 02/10/18 History clopidogrel [Plavix] 75 mg PO DAILY 12/04/17 02/10/18 History coQ10 (ubiquinol) 200 mg PO DAILY 12/04/17 02/10/18 History ergocalciferol (vitamin D2) 50,000 unit PO QWEEK 12/04/17 02/10/18 History [Vitamin D2] fentanyl 1 patch TRANSDERMAL Q72H 12/04/17 02/10/18 History finasteride 5 mg PO HS 12/04/17 02/10/18 History furosemide [Lasix] 40 mg PO DAILY 12/04/17 02/10/18 History gabapentin 300 mg PO Q8HR 12/04/17 02/10/18 History hydrocodone-acetaminophen [Sandy] 1 tab PO Q4-6H PRN 12/04/17 02/10/18 History insulin glargine [Lantus U-100 100 unit SUB-Q QPM 12/04/17 02/10/18 History Insulin] insulin lispro [Humalog U-100 5 - 10 units SUB-Q UD 12/04/17 02/10/18 History Insulin] ipratropium-albuterol 3 ml INHALATION Q6-8H PRN 12/04/17 02/10/18 History loratadine [Claritin] 10 mg PO DAILY 12/04/17 02/10/18 History metformin [Glucophage] 1,000 mg PO BID 12/04/17 02/10/18 History methocarbamol [Robaxin] 500 mg PO Q8HR 12/04/17 02/10/18 History dfzsolkt-gdu-OM-lycopen-lutein 1 tab PO DAILY 12/04/17 02/10/18 History [Centrum Silver] pramipexole 0.75 mg PO HS 12/04/17 02/10/18 History spironolactone [Aldactone] 25 mg PO DAILY 12/04/17 02/10/18 History tamsulosin 0.4 mg PO HS 12/04/17 02/10/18 History tiotropium bromide [Spiriva with 1 cap INHALATION DAILY 12/04/17 02/10/18 History HandiHaler] Physical Exam Vital Signs - 24 hr 02/15/18 12:00 02/15/18 16:00 02/15/18 20:00 Temperature 98.7 F 98.5 F 98.5 F Pulse Rate 67 66 74 Respiratory Rate 18 18 18 Blood Pressure 102/52 L 112/58 L 100/58 L Pulse Oximetry 94 L 96 95 02/16/18 00:00 02/16/18 04:00 02/16/18 08:00 Temperature 98.3 F 98.2 F 98.1 F Pulse Rate 67 76 69 Respiratory Rate 18 18 20 Blood Pressure 92/55 L 94/52 L 98/55 L Pulse Oximetry 98 100 95 Physical Exam: GENERAL: This is a well-nourished, well-developed patient, in no apparent distress. SKIN: No rashes, Cool and dry. HEAD: Atraumatic. Normocephalic. CARDIOVASCULAR: Regular rate and rhythm without murmurs, gallops, or rubs. RESPIRATORY: Clear to auscultation. Breath sounds equal bilaterally. No wheezes , rales, or rhonchi. GASTROINTESTINAL: Abdomen soft, non-tender, nondistended. GENITOURINARY: No CVAT MUSCULOSKELETAL: RLE- post op dressing CKS in place, NEUROLOGICAL: Awake and alert. Laboratory Results - last 24 hr 02/15/18 02/15/18 02/15/18 10:48 16:35 20:28 POC Glucose 180 H 112 H 163 H 02/16/18 08:42 POC Glucose 185 H Microbiology 02/10/18 14:45 Aerobic Blood Culture - Final Blood - Peripheral No growth in 5 days Anaerobic Blood Culture - Final No growth in 5 days 02/10/18 14:50 Aerobic Blood Culture - Final Blood - Peripheral No growth in 5 days Anaerobic Blood Culture - Final No growth in 5 days Result Diagrams: 02/16/18 10:50 02/16/18 10:50 Imaging: ITS Impressions Chest X-Ray 02/10/18 14:41 CONCLUSION: 1. Cardiomegaly. 2. Minimal increased interstitial markings bilaterally consistent with possible minimal congestion. Clinical correlation is recommended. Knee CT 02/10/18 14:41 CONCLUSION: 1. Healing comminuted fracture deformity of the proximal tibia status post open rigid internal fixation with lateral screw plate fixation device in place. There is diffuse patchy sclerosis and lucency with indistinct fracture lines. The findings could indicate infection. 2. Healing comminuted fracture of the proximal fibula. 3. Cirrhosis as well as numerous small patchy lucencies in the distal femur and patella. 4. Joint effusion and extensive soft tissue swelling. Tibia/Fibula X-Ray 02/10/18 14:41 CONCLUSION: 1. Status post open rigid internal fixation of a proximal tibial fracture with patchy sclerosis and lucency which is nonspecific. 2. Deformity of the proximal fibula as well. 3. Patchy sclerosis involving the distal femur. Knee X-Ray 02/11/18 00:00 CONCLUSION: Status post hardware removal as described above. Assessment and Plan - Plan 67 y.o M with history as per HPI - Continue management as per primary team - No acute intervention needed. Knowing his BPH history, He may have post/op retention - Needs bladder scan to evaluate for post void residual after voiding and know how bad is his retention - If retains less then 250cc no intervention needed, continue just flomax and proscar, if its more then 250cc, place Carlos catheter or teach self cath in addition to meds - Pt to follow up as outpt after d/c with Dr Charles for cystoscopy and BPH management Discussed Condition With: Dr Charles attending
[2018-02-16] MEDS: Enoxaparin Inj 30 MG/0.3 ML Syringe SQ SCH (10:57)
[2018-02-16] MEDS: DAPTOmycin Inj 1,000 MG in Sodium Chlor 0.9% Inj 100 ML IV.SIG SCH (10:57)
[2018-02-16 11:24] LABS: Baso # (Auto) 0.1 th/mm3 (0.0-0.2); Baso % (Auto) 0.8 % (0.0-2.0); Eos # (Auto) 0.4 th/mm3 (0.0-0.4); Eos % (Auto) 4.5 % (0.0-4.0); Hematocrit 32.3 % (39.0-51.0); Hemoglobin 10.1 gm/dL (13.0-17.0); Lymph # (Auto) 1.8 th/mm3 (1.0-4.8); Lymph % (Auto) 18.7 % (9.0-44.0); Mean Corpuscular HGB Conc 31.4 % (32.0-36.0); Mean Corpuscular Hemoglobin 23.4 pg (27.0-34.0); Mean Corpuscular Volume 74.4 fL (80.0-100.0); Mean Platelet Volume 8.3 fL (7.0-11.0); Mono # (Auto) 0.6 th/mm3 (0.0-0.9); Mono % (Auto) 6.3 % (0.0-8.0); Neut # (Auto) 6.5 th/mm3 (1.8-7.7); Neut % (Auto) 69.7 % (16.0-70.0); Platelet Count 322 th/mm3 (150-450); Red Blood Count 4.34 mil/mm3 (4.50-5.90); White Blood Count 9.4 th/mm3 (4.0-11.0)
[2018-02-16 11:51] LABS: Albumin 2.8 g/dL (3.4-5.0); Anion Gap 7 meq/L (5-15); Aspartate Aminotransferase 19 U/L (15-37); Blood Urea Nitrogen 18 mg/dL (7-18); Calcium 9.1 mg/dL (8.5-10.1); Carbon Dioxide 27.6 meq/L (21.0-32.0); Chloride 100 meq/L (98-107); Glomerular Filtration Rate 75 mL/min (>89); Glucose,Random 133 mg/dL (74-106); Potassium 3.9 meq/L (3.5-5.1); Sodium 135 meq/L (136-145)
[2018-02-16 11:52] LABS: Alanine Aminotransferase 12 U/L (12-78)
[2018-02-16 11:54] LABS: Alkaline Phosphatase 97 U/L (45-117)
[2018-02-16 12:01] VITALS: O2SAT 97
[2018-02-16 12:38] VITALS: BP 113/56; PULSE 63; TEMP 98.3
[2018-02-16] MEDS ORDERED: Heparin Central Flush 100 UNIT/ML 5 ML Vial IV.FLUSH PRN (14:16)
--- NOTE | 2018-02-16 15:33 | P.PNID ---
Subjective Remarks: Mr. Tovar is a 67-year-old male with past medical history significant for coronary artery disease, COPD, congestive heart failure, diabetes. Patient reported a traumatic right tibial plateau fracture in August 2017 and underwent repair by Dr. Garcia. This was complicated by infection in October 2017 requiring a long course of IV vancomycin by Dr. Bynum by psych. Patient reports having a PICC line at that time and being followed by Dr. Plascencia. Patient started weightbearing approximately 6 weeks back. He reports that approximately 5 days prior to admission he started noticing pain around his right knee as well as subsequently malodorous clear discharge from the prior surgical site. On the day of admission patient had a temperature of 103 Fahrenheit. In addition patient started developing nausea, fatigue as well as generalized malaise. He this drainage from the knee started becoming yellow and started draining. On the right leg secondary to severe pain. [place] at home with good relief. He went to his PCP who recommended. Patient has been evaluated by orthopedic Dr. Garcia and underwent irrigation and debridement as well as removal of the hardware and placement of spacer. Drop cultures are pending at the present time. Intra-Op note reports purulent material seen intraoperatively. Patient has had a workup for sepsis all cultures are pending and patient has been started on empiric antibiotics. Overnight events reviewed. No fever No rash Pain well-tolerated. Refuses to go to rehab. Wishes to go home. Antibiotics: Dapto IV Lines: Line sites with no evidence of infection. Past Medical History: Reviewed. Allergies/Adverse Reactions: Allergies penicillin G Allergy (Unknown, Verified 12/05/17 10:59) childhood reaction unknown reaction Penicillins Allergy (Unknown, Verified 12/05/17 08:09) childhood reaction Objective Vital Signs 02/15/18 16:00 02/15/18 20:00 02/16/18 00:00 Temperature 98.5 F 98.5 F 98.3 F Pulse Rate 66 74 67 Respiratory Rate 18 18 18 Blood Pressure 112/58 L 100/58 L 92/55 L Pulse Oximetry 96 95 98 02/16/18 04:00 02/16/18 08:00 02/16/18 12:00 Temperature 98.2 F 98.1 F 98.3 F Pulse Rate 76 69 63 Respiratory Rate 18 20 20 Blood Pressure 94/52 L 98/55 L 113/56 L Pulse Oximetry 100 95 97 Intake & Output 10/07/18 10/08/18 10/08/18 18:59 06:59 18:59 Intake Total 100 / 100 580 / 580 Output Total 550 / 550 325 / 325 Balance -450 / -450 -325 / -325 579 / 579 Weight 96.8 kg 96.8 kg Intake: IV 100 / 100 100 / 100 Cubicin Inj 1,000 MG In NS Inj 100 / 100 100 / 100 100 ML @ 200 mls/hr IV.SIG Q24H [facility] Rx#:[id number] Oral 480 / 480 Output: Urine 550 / 550 325 / 325 Stool Other: # Voids 1 Date of Last Bowel Movement 02/14/18 02/15/18 02/16/18 02/10/18 14:45 Blood - Peripheral Aerobic Blood Culture - Final No growth in 5 days 02/10/18 14:45 Blood - Peripheral Anaerobic Blood Culture - Final No growth in 5 days 02/10/18 14:50 Blood - Peripheral Aerobic Blood Culture - Final No growth in 5 days 02/10/18 14:50 Blood - Peripheral Anaerobic Blood Culture - Final No growth in 5 days 02/11/18 11:30 Tissue - Incision Gram Stain - Final 02/11/18 11:30 Tissue - Incision Wound Culture - Final Staphylococcus epidermidis 02/11/18 11:30 Tissue - Incision Gram Stain - Final 02/11/18 11:30 Tissue - Incision Wound Culture - Final Staphylococcus epidermidis 02/11/18 11:30 Tissue - Incision Gram Stain - Final 02/11/18 11:30 Tissue - Incision Wound Culture - Final Staphylococcus epidermidis Lab - Hematology Results 02/16/18 10:50 WBC 9.4 RBC 4.34 L Hgb 10.1 L Hct 32.3 L MCV 74.4 L MCH 23.4 L MCHC 31.4 L RDW 19.0 H Plt Count 322 MPV 8.3 Neut % (Auto) 69.7 Lymph % (Auto) 18.7 [place] % (Auto) 6.3 Eos % (Auto) 4.5 H Baso % (Auto) 0.8 Neut # (Auto) 6.5 Lymph # (Auto) 1.8 [place] # (Auto) 0.6 Eos # (Auto) 0.4 Baso # (Auto) 0.1 WBC Differential . Differential Comment Auto diff final Lab - Chemistry Results 02/14/18 02/14/18 02/15/18 17:59 20:48 09:01 Sodium Potassium Chloride Carbon Dioxide Anion Gap BUN Creatinine Estimated GFR POC Glucose 142 H 143 H 118 H Random Glucose Calcium Total Bilirubin AST ALT Alkaline Phosphatase Total Protein Albumin 02/15/18 02/15/18 02/15/18 10:48 16:35 20:28 Sodium Potassium Chloride Carbon Dioxide Anion Gap BUN Creatinine Estimated GFR POC Glucose 180 H 112 H 163 H Random Glucose Calcium Total Bilirubin AST ALT Alkaline Phosphatase Total Protein Albumin 02/16/18 02/16/18 02/16/18 08:42 10:50 12:17 Sodium 135 L Potassium 3.9 Chloride 100 Carbon Dioxide 27.6 Anion Gap 7 BUN 18 Creatinine 1.00 Estimated GFR 75 L POC Glucose 185 H 95 Random Glucose 133 H Calcium 9.1 Total Bilirubin 0.3 AST 19 ALT 12 Alkaline Phosphatase 97 Total Protein 7.0 D Albumin 2.8 L Imaging: ITS Impressions Chest X-Ray 02/10/18 14:41 CONCLUSION: 1. Cardiomegaly. 2. Minimal increased interstitial markings bilaterally consistent with possible minimal congestion. Clinical correlation is recommended. Knee CT 02/10/18 14:41 CONCLUSION: 1. Healing comminuted fracture deformity of the proximal tibia status post open rigid internal fixation with lateral screw plate fixation device in place. There is diffuse patchy sclerosis and lucency with indistinct fracture lines. The findings could indicate infection. 2. Healing comminuted fracture of the proximal fibula. 3. Cirrhosis as well as numerous small patchy lucencies in the distal femur and patella. 4. Joint effusion and extensive soft tissue swelling. Tibia/Fibula X-Ray 02/10/18 14:41 CONCLUSION: 1. Status post open rigid internal fixation of a proximal tibial fracture with patchy sclerosis and lucency which is nonspecific. 2. Deformity of the proximal fibula as well. 3. Patchy sclerosis involving the distal femur. Knee X-Ray 02/11/18 00:00 CONCLUSION: Status post hardware removal as described above. Physical Exam: GENERAL: Well-nourished well-developed, not in acute distress SKIN: Cool and dry, no generalized rash HEAD: Atraumatic. Normocephalic. No temporal or scalp tenderness. EYES: Pupils equal round and reactive. Scleral icterus. No injection or drainage. No petechia ENT: Nothing abnormal detected NECK: Trachea midline. Supple, nontender, no meningeal signs. CARDIOVASCULAR: HS audible. RESPIRATORY: Clear to auscultation bilaterally. GASTROINTESTINAL: Abdomen soft nontender. MUSCULOSKELETAL: Right extremity in postop surgical dressing. NEUROLOGICAL: Alert oriented 3. Nonfocal. Psych cooperative IV line sites ok. Assessment and Plan (1) Osteomyelitis of right knee region Status: Acute Code(s): M86.9 - Osteomyelitis, unspecified - Plan Possible sepsis present on admission with history of fever 103 as well as elevated white count. Source of infection is right septic arthritis, prosthetic knee joint infection Recent history of being treated with IV antibiotics exam PICC line for right knee prosthetic joint Recommendations: Continue Dapto IV (stop date tentative 03/30/18) Post hospital infusion orders in chart. dw CM to dw patient his copay. Follow cultures Follow clinically Discussed with patient Discussed with RN. Addendum: Upon review of note the correct documentation of procedure is Removal of deep hardware, irrigation and debridement of right tibia, placement of antibiotic beads.
--- NOTE | 2018-02-16 17:32 | P.DS ---
Date of admission: 02/10/18 17:48 Primary care physician: No Primary Care Physician Anticipated date of discharge: 02/16/18 Brief History from admission: 67 YOWM with history of CAD, COPD, CHF, DM, HLD, HTN, and recent traumatic R tibial plateau fracture (August 2017 s/p repair with Dr. Garcia) complicated by infection October 2017 requiring a long course of IV vancomycin presented to the ED for evaluation of progressive right knee pain and drainage. The patient reports he completed outpatient IV vancomycin sometime in early December and started weightbearing about six weeks ago. He states he had been gradually improving but then about five days ago he started have pain around his right knee and subsequent malodorous, clear drainage from the prior surgical site. The following day he had a fever of 103. He states during this time he has been nauseous, fatigued, and with general malaise. He states today the drainage began having more of a white-yellow tint to it. He states the drainage has been copious. He has been unable to bear weight on the right leg secondary to pain. He has been taking [place] at home with good relief. He went to his PCP today who recommended he be evaluated here in the ED. DS: Diagnosis - Discharge Diagnosis (1) Wound infection after surgery Status: Acute DS: Summary Hospital Course: 67-year-old man with 1.septic L knee with hardware in place - Staph. epidermidis on culture S/P Removal of deep hardware, irrigation and debridement of right tibia, placement of antibiotic beads 02/11 -Currently on vancomycin -ID ff along with us -PT daily - [place] PRN - patient states had had PICC line in the past for OP IV antibiotics- will likely need halfway IV antibiotics- will need PICC prior to DC for OP - [facility]- reported- incision well healed 2. CAD with multiple stents, HTN CMP- known EF 37% history- not in failure - restart ASA and Plavix - Continue Entresto, carvedilol, Lasix , amlodipine. Aldactone - decrease Amlodipine to 5 mg daily 3. COPD JUAN - on CPAP hs - Not in acute exacerbation - Supplemental O2 PRN, DuoNeb as needed - requesting for 02 concentrator during CPAP use at night-- states he sleeps better with it - will d/w RT - will do a walk test prior to DC 4. DM- good readings - patient states uses Lantus in the past and has not been on it- lost weight - he insists on regular diet- and will not eat if we put him on ADA diet - on metformin 1 gm bid - SSI with AccuChecks per protocol 5. HLD -Continue home statin 6. History of Bladder cancer- with incomplete bladder empyting sensation- refused post voiding residual urine check - requesting to see his Urologist - Dr. Charles - on Proscar/flomax 7. Depression - in good spirits- very motivated - Continue home meds Lovenox for DVT prophylaxis DC planing- will need termination clerk IV antibiotics- PICC placment add- check post voiing residual only 3 cc - Time Spent with Patient Total time spent providing and/or coordinating discharge services: Greater than 30 minutes - Quality: VTE Deep Vein Thrombosis/Pulmonary Embolism Present on Admission: No Exam Vital signs: Vital Signs 02/15/18 20:00 02/16/18 00:00 02/16/18 04:00 Temperature 98.5 F 98.3 F 98.2 F Pulse Rate 74 67 76 Respiratory Rate 18 18 18 Blood Pressure 100/58 L 92/55 L 94/52 L Pulse Oximetry 95 98 100 02/16/18 08:00 02/16/18 12:00 Temperature 98.1 F 98.3 F Pulse Rate 69 63 Respiratory Rate 20 20 Blood Pressure 98/55 L 113/56 L Pulse Oximetry 95 97 Intake & Output 02/15/18 02/16/18 02/16/18 18:59 06:59 18:59 Intake Total 100 / 100 580 / 580 Output Total 550 / 550 325 / 325 Balance -450 / -450 -325 / -325 579 / 579 Weight 96.8 kg 96.8 kg Intake: IV 100 / 100 100 / 100 Cubicin Inj 1,000 MG In NS Inj 100 / 100 100 / 100 100 ML @ 200 mls/hr IV.SIG Q24H [facility]BA Rx#:[id number] Oral 480 / 480 Output: Urine 550 / 550 325 / 325 Stool Other: # Voids 1 Date of Last Bowel Movement 02/14/18 02/15/18 02/16/18 Narrative: awake and alert no distress anicteric lungs- no rales regular rhythm abdomen soft, nontender RLE- post op dressing CKS in place, sensory intact, moves all extremities spontaenosly Results Procedures completed during hospitalization: 02/11 Removal of deep hardware, irrigation and debridement of right tibia, placement of antibiotic beads. Labs on day of discharge: Labs from last 24 hours 02/16/18 02/16/18 02/16/18 12:17 10:50 10:50 WBC 9.4 RBC 4.34 L Hgb 10.1 L Hct 32.3 L MCV 74.4 L MCH 23.4 L MCHC 31.4 L RDW 19.0 H Plt Count 322 MPV 8.3 Neut % (Auto) 69.7 Lymph % (Auto) 18.7 [place] % (Auto) 6.3 Eos % (Auto) 4.5 H Baso % (Auto) 0.8 Neut # (Auto) 6.5 Lymph # (Auto) 1.8 [place] # (Auto) 0.6 Eos # (Auto) 0.4 Baso # (Auto) 0.1 WBC Differential . Differential Comment Auto diff final Sodium 135 L Potassium 3.9 Chloride 100 Carbon Dioxide 27.6 Anion Gap 7 BUN 18 Creatinine 1.00 Estimated GFR 75 L POC Glucose 95 Random Glucose 133 H Calcium 9.1 Total Bilirubin 0.3 AST 19 ALT 12 Alkaline Phosphatase 97 Total Protein 7.0 D Albumin 2.8 L 02/16/18 02/15/18 08:42 20:28 WBC RBC Hgb Hct MCV MCH MCHC RDW Plt Count MPV Neut % (Auto) Lymph % (Auto) [place] % (Auto) Eos % (Auto) Baso % (Auto) Neut # (Auto) Lymph # (Auto) [place] # (Auto) Eos # (Auto) Baso # (Auto) WBC Differential Differential Comment Sodium Potassium Chloride Carbon Dioxide Anion Gap BUN Creatinine Estimated GFR POC Glucose 185 H 163 H Random Glucose Calcium Total Bilirubin AST ALT Alkaline Phosphatase Total Protein Albumin - Impressions ITS Impressions Chest X-Ray 02/10/18 14:41 CONCLUSION: 1. Cardiomegaly. 2. Minimal increased interstitial markings bilaterally consistent with possible minimal congestion. Clinical correlation is recommended. Knee CT 02/10/18 14:41 CONCLUSION: 1. Healing comminuted fracture deformity of the proximal tibia status post open rigid internal fixation with lateral screw plate fixation device in place. There is diffuse patchy sclerosis and lucency with indistinct fracture lines. The findings could indicate infection. 2. Healing comminuted fracture of the proximal fibula. 3. Cirrhosis as well as numerous small patchy lucencies in the distal femur and patella. 4. Joint effusion and extensive soft tissue swelling. Tibia/Fibula X-Ray 02/10/18 14:41 CONCLUSION: 1. Status post open rigid internal fixation of a proximal tibial fracture with patchy sclerosis and lucency which is nonspecific. 2. Deformity of the proximal fibula as well. 3. Patchy sclerosis involving the distal femur. Knee X-Ray 02/11/18 00:00 CONCLUSION: Status post hardware removal as described above. Discharge Plan - Discharge Disposition Patient Disposition: /Home Health Service - Discharge Condition Condition: Good - Discharge Order Discharge Orders: Discharge Order (Routine); Ordered 02/16/18 Ordered By: Adrianna Bernstein Infectious Disease Clear for Discharge (Routine); Ordered 02/16/18 Ordered By: Abril More Orthopedic Clear for Discharge (Routine); Ordered 02/13/18 Ordered By: Varghese Shultz - Discharge Details Discharge Comment: Provided [employer] approves Daptomycin IV for infusion for 6 weeks. - Physicians Team Primary Care Provider: Primary Care Physici,Dorothy Attending Provider: Adrianna Bernstein Other Providers: Ragini Day MD ; Delvis Garcia MD ; Abril More MD ; Jackie,[employer] ; Gokul Charles MD ; [facility],Agency
[2018-02-17] MEDS ORDERED: Heparin Central Flush 100 UNIT/ML 5 ML Vial IV.FLUSH SCH (09:00)
== END 2018-02-16 17:16 | disposition home health service (06) ==
LOC: NEPE 12:42 → NEDA 17:48 → N05 19:37
PROVIDERS: ADMIT Internal Medicine; ATTEND Internal Medicine
PROC: ORIFPAT (2018-02-11 10:44)